=== PATIENT | female | born 1985 | race Hispanic/Latino ===

== ENCOUNTER 2020-05-19 10:38 | Outpatient (CLI) | payer OTHER, SELFPAY ==
--- NOTE | ~2020-05-19 | US_ITS ---
EXAMINATION: US abdomen complete EXAM DATE: 05/19/2020 11:15 INDICATION: Abdominal pain. TECHNIQUE: Multiple grayscale and Doppler images of the complete abdomen were obtained (by a technolo gist who performed the scan) and subsequently reviewed. Comparison is made to prior examination from 02/06/2019. FINDINGS: The abdominal aorta is normal in caliber. Visualized portion IVC is patent. The pancreatic head a nd body are normal in appearance. The pancreatic tail is not visualized. There is echogenic liver parenchyma, hepatic steatosis. There are no focal liver lesions identified. There is no evidence of intrahepatic biliary duct dilation. Portal venous flow was seen in the he patopedal, normal direction and has normal Doppler waveform. Common bile duct measures 6 mm, which is normal. The gallbladder fossa is unremarkable. Right kidney: There is normal contour and echogenicity. It measures 11.9 x 5.5 x 6.1 centimeters. There are no focal renal lesions identified. There is no hydronephrosis. Left kidney: There is normal contour and echogenicity. It measures 12.5 x 5.2 x 5.8 centimeters. T here are no focal renal lesions identified. There is no hydronephrosis. The spleen measures 12.7 centimeters and is morphologically normal. IMPRESSION: 1. Hepatic steatosis. Reviewed, dictated and finalized at location A. IMPRESSION: 1. Hepatic steatosis.
== END 2020-05-19 10:39 | disposition home or self-care (01) ==
PROVIDERS: PCP Internal Medicine; Visit Provider Nurse Practitioner
DX: R10.9 Unspecified abdominal pain (principal); K76.0 Fatty (change of) liver, not elsewhere classified
CPT/HCPCS: 76700

== ENCOUNTER 2020-05-25 13:54 | Outpatient (CLI) | payer OTHER, SELFPAY ==
--- NOTE | ~2020-05-25 | CT_ITS ---
EXAMINATION: CT abdomen pelvis wo con DATE: 05/25/2020 14:15 INDICATION: Unspecified abdominal pain TECHNIQUE: Computed tomography (CT) of the abdomen and pelvis was performed without intravenous contr ast. The dose-length product (DLP) was 1208.39 mGy-cm. Automated exposure control and iterative recon struction technique were employed. COMPARISON: None FINDINGS: The lung bases are clear. The heart size is normal. The gallbladder is surgically absent. T he liver is diffusely low in attenuation when compared with the spleen, consistent with hepatic steat osis. Tiny hypoattenuating lesions in the spleen likely represent cysts. Pancreas and adrenal glands are normal. The kidneys are unremarkable. No pathologically enlarged abdominal or pelvic lymph nodes are identified. There is no free intraperitoneal gas or evidence of bowel obstruction. The appendix i s normal. An L4 limbus vertebra is noted. There is a small fat-containing umbilical hernia. IMPRESSION: 1. No CT correlate for the patient's symptoms. 2. Diffuse hepatic steatosis. Reviewed, dictated and finalized at location B.
== END 2020-05-25 13:55 | disposition home or self-care (01) ==
LOC: ANHIMG 14:01
PROVIDERS: PCP Internal Medicine; Visit Provider Nurse Practitioner
DX: R10.9 Unspecified abdominal pain (principal); K76.0 Fatty (change of) liver, not elsewhere classified
CPT/HCPCS: 74176

== ENCOUNTER 2020-06-30 12:58 | Outpatient (CLI) | payer OTHER, SELFPAY ==
[2020-06-30 15:03] LABS: Vitamin D 25 Hydroxy 19.4 ng/mL
== END 2020-06-30 12:59 | disposition home or self-care (01) ==
PROVIDERS: PCP Internal Medicine; Visit Provider Clinical Nurse Specialist
DX: E55.9 Vitamin D deficiency, unspecified (principal); E11.9 Type 2 diabetes mellitus without complications
CPT/HCPCS: 82306

== ENCOUNTER 2020-07-06 17:03 | Outpatient (CLI) | payer OTHER, SELFPAY ==
[2020-07-06 17:27] LABS: Hemoglobin A1C 10.2 % (<5.7)
== END 2020-07-06 17:04 | disposition home or self-care (01) ==
PROVIDERS: PCP Internal Medicine; Visit Provider Clinical Nurse Specialist
DX: E11.9 Type 2 diabetes mellitus without complications (principal)
CPT/HCPCS: 36415; 83036

== ENCOUNTER 2020-09-02 11:26 | Emergency (ER) | payer OTHER, SELFPAY ==
--- NOTE | ~2020-09-02 | XR_ITS ---
EXAMINATION: XR chest 1V portable EXAM DATE: 09/02/2020 12:24 INDICATION: SOB x 1 week TECHNIQUE: Portable AP frontal chest x-ray was obtained. There is no prior study for comparison. FINDINGS: Some patchy ill-defined left basilar airspace disease suspicious for acute infectious proce ss. Cardiomediastinal silhouette is normal. There is no pneumothorax suspected. There are no pleural effusions. There are no osseous abnormalities identified. IMPRESSION: Suspect developing left basilar acute infectious process, clinical correlation. Reviewed, dictated and finalized at location A. 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
[2020-09-02 11:49] VITALS: BP 118/81; PULSE 114; RESP 32; TEMP 37.2; O2SAT 98
[2020-09-02 11:52] VITALS: PULSE 110
--- NOTE | 2020-09-02 11:52 | ECG_ITS ---
Measurements Intervals [place] Rate: 113 P: 136 ID: [id number] QRS: 187 QRSD: 93 T: 151 QT: 343 QTc: 472 Interpretive Statements SINUS TACYCARDIA WITH SHORT ID INTERVAL LIMB LEAD REVERSAL BASELINE ARTIFACT- I, II, III ABNORMAL ECG Electronically Signed On 09-02-2020 14:48:35 [employer] SALON MANAGER by Sachin Lee D.O.
[2020-09-02 12:06] LABS: Basophils Percent Auto 0.2 % (0.2-1.2); Eosinophils Percent Auto 0.2 % (0-4.4); Hematocrit 45.4 % (37.0-47.0); Hemoglobin 15.9 g/dL (12.0-15.0); Immature Granulocyte Absolute 0.02 K/mm3 (0.00-0.031); Immature Granulocyte Percent A 0.4 % (0-0.5); Lymphocytes Absolute Auto 1.72 K/mm3 (0.9-3.2); Lymphocytes Percent Auto 36.7 % (18.3-44.2); Mean Corpuscular Hemoglobin 30.1 pg (26-34); Mean Platelet Volume 10.4 fl (7.4-10.4); Monocytes Absolute Auto 0.4 K/mm3 (0.1-0.6); Monocytes Percent Auto 7.7 % (2.6-8.5); Neutrophils Absolute Auto 2.6 K/mm3 (1.3-6.7); Neutrophils Percent Auto 54.8 % (45.5-73.1); Platelet Count Result 163 k/mm3 (150-375); Red Blood Count 5.28 M/mm3 (4.2-5.4); Red Cell Distribution Width 12.7 % (11.5-14.5); White Blood Count 4.7 K/mm3 (4.5-10.0)
[2020-09-02 12:22] LABS: Anion Gap 13 mmol/L (8-16); Blood Urea Nitrogen 13 mg/dL (7-17); Calcium 8.6 mg/dL (8.4-10.2); Carbon Dioxide 20 mmol/L (22-30); Chloride 103 mmol/L (98-107); Estimated CRCL calculation 152 ml/min; Estimated Glomerular Filt Rate > 60; Glucose 299 mg/dL (65-105); Potassium 4.3 mmol/L (3.4-5.0); Sodium 136 mmol/L (137-145)
[2020-09-02 12:35] VITALS: BP 153/99; PULSE 115; RESP 40; O2SAT 98
[2020-09-02] MEDS: FAMOTIDINE 20 MG/2 ML VIAL IV PUSH (12:53)
[2020-09-02] MEDS: SODIUM CHLORIDE 0.9% IV 1,000 ML 999 ML IV CONT ×2 (12:54→14:30)
[2020-09-02] MEDS: LORazepam INJ (*CRX) 2 MG/ML VIAL 1 MG IV PUSH (12:54)
[2020-09-02] MEDS: ONDANSETRON INJ 4 MG/2 ML VIAL IV PUSH (12:54)
--- NOTE | 2020-09-02 14:13 | ED.GENADULT ---
HPI - General Adult General Chief complaint: Shortness of Breath/Dyspnea Stated complaint: diff breathing Time Seen by Provider: 09/02/20 12:06 Source: patient Mode of arrival: ambulatory Limitations: no limitations History of Present Illness HPI narrative: Patient is a 35-year-old female who presents with 5 days duration of congestion rhinorrhea cough dyspnea fever decreased appetite and fatigue. Denies vomiting but notes nausea denies diarrhea presents in no distress has not taken anything for her symptoms today patient lives with family at home patient notes she is feeling more anxious due to the illness. Patient on arrival appears uncomfortable and ill-appearing in no distress Related Data Allergies Allergy/AdvReac Type Severity Reaction Status Date / Time No Known Allergies Allergy Verified 11/05/19 16:10 Review of Systems Review of Systems: All systems reviewed & are unremarkable except as noted in HPI and below PMFSH Past Medical History Medical History Anxiety Asthma Depression DM (diabetes mellitus) HTN (hypertension) Miscarriage Ovarian cyst PCOS (polycystic ovarian syndrome) Vitamin D deficiency Family History Family History (System 11/05/19 @ 16:10 by Roxie Belcher) Father Hypertension Mother Diabetes mellitus Social History Social History Smoking status: Former smoker Smoking end date: 10/22/11 Alcohol intake: current Gender identity (if verbalized by the patient): Female Exam Narrative: Exam Narrative: GENERAL: Ill-appearing, obese, and in no acute distress. HEAD: Normocephalic, atraumatic. EYES: PERRLA and EOMI. ENT: Nares clear, no rhinorrhea or epistaxis. Mucous membranes moist. CHEST: Clear to auscultation. No respiratory distress. Slight crackles in the lung base HEART: Tachycardic rate and regular rhythm. No murmur heard. Normal peripheral pulses. ABDOMEN: Soft, nontender, nondistended EXTREMITIES: Normal range of motion. No edema. SKIN: Warm, dry, no rash. NEURO: No focal deficits. Alert and oriented x3. Cranial nerves II through XII grossly intact PSYCH: Normal mood and affect. Course Course Emergency Course: Patient in the room at this time resting comfortably feeling much better with interventions will be discharged home with primary care follow-up to receive her Covid results afebrile nontoxic-appearing no distress at this time Vital Signs Vital signs: Vital Signs Temperature 99.0 F 09/02/20 11:49 Pulse Rate 114 H 09/02/20 11:49 Respiratory Rate 32 H 09/02/20 11:49 Blood Pressure 118/81 09/02/20 11:49 Pulse Oximetry 98 09/02/20 11:49 Temperature 99.0 F 09/02/20 11:49 Pulse Rate 116 H 09/02/20 14:30 Respiratory Rate 28 H 09/02/20 14:30 Blood Pressure 135/84 09/02/20 14:30 Pulse Oximetry 98 09/02/20 14:30 Medical Decision Making MDM Narrative Medical decision making narrative: Patient with likely Covid has been tested will be discharged home with primary care follow-up feeling much better at this time afebrile nontoxic-appearing no distress felt appropriate for outpatient reevaluation given strict reasons to return has not hypoxic or tachycardic at this time resting comfortably in the room feeling much better with interventions Vital Signs Vital Signs: Vital Signs Temperature 99.0 F 09/02/20 11:49 Pulse Rate 114 H 09/02/20 11:49 Respiratory Rate 32 H 09/02/20 11:49 Blood Pressure 118/81 09/02/20 11:49 Pulse Oximetry 98 09/02/20 11:49 Temperature 99.0 F 09/02/20 11:49 Pulse Rate 116 H 09/02/20 14:30 Respiratory Rate 28 H 09/02/20 14:30 Blood Pressure 135/84 09/02/20 14:30 Pulse Oximetry 98 09/02/20 14:30 Lab Data Result diagrams: 09/02/20 12:00 09/02/20 11:59 Labs: Lab Results 09/02/20 09/02/20 Range/Units 11:59 12:00 WBC 4.7 (4.
[2020-09-02 14:30] VITALS: BP 135/84; PULSE 116; RESP 28; O2SAT 98
[2020-09-02 15:51] VITALS: BP 135/85; PULSE 99; RESP 20; O2SAT 98
[2020-09-03 14:52] LABS: SARS-CoV-2 RNA PCR Positive
== END 2020-09-02 16:01 | disposition home or self-care (01) ==
PROVIDERS: Emergency Medicine Emergency Medical Services; Emergency Provider Emergency Medicine; PCP Internal Medicine
DX: U07.1 COVID-19 (principal); F41.9 Anxiety disorder, unspecified; J45.909 Unspecified asthma, uncomplicated; F32.9 Major depressive disorder, single episode, unspecified; E11.9 Type 2 diabetes mellitus without complications; I10 Essential (primary) hypertension; E28.2 Polycystic ovarian syndrome; E55.9 Vitamin D deficiency, unspecified; Z79.4 Long term (current) use of insulin; Z87.891 Personal history of nicotine dependence; R00.0 Tachycardia, unspecified
CPT/HCPCS: 36415; 71045; 80048; 85025; 87635; 93005; 96361; 96365; 96375; 99284; C9803; J0131; J2060; J2405; J7030; U0003

== ENCOUNTER 2022-08-02 06:36 | Outpatient (RCR) | payer OTHER, SELFPAY | END 2022-10-17 08:37 | disposition home or self-care (01) | LOC: ANHDMC 06:36 | PROVIDERS: PCP Nurse Practitioner Family; Visit Provider Nurse Practitioner Family | DX: E11.65 Type 2 diabetes mellitus with hyperglycemia (principal) | CPT/HCPCS: 99199 ==

== ENCOUNTER 2022-08-12 13:04 | Outpatient (CLI) | payer OTHER, SELFPAY ==
[2022-08-12 13:44] LABS: Alanine Aminotransferase 19 U/L (6-35); Albumin Level 3.9 g/dL (3.5-5.1); Alkaline Phosphatase 75 U/L (38-126); Anion Gap 11 mmol/L (8-16); Aspartate Amino Transferase 15 U/L (14-36); Bilirubin,Total 0.2 mg/dL (0.2-1.3); Blood Urea Nitrogen 8 mg/dL (7-17); Calcium 8.4 mg/dL (8.4-10.2); Carbon Dioxide 21 mmol/L (22-30); Chloride 104 mmol/L (98-107); Estimated Glomerular Filt Rate > 60; Glucose 168 mg/dL (65-110); Potassium 3.7 mmol/L (3.4-5.0); Sodium 136 mmol/L (137-145)
[2022-08-12 13:46] LABS: Hemoglobin A1C 7.5 % (<5.7)
[2022-08-12 13:52] LABS: Basophils Percent Auto 0.3 % (0.2-1.2); Eosinophils Absolute Auto 0.1 K/mm3 (0-0.3); Eosinophils Percent Auto 1.8 % (0-4.4); Hematocrit 38.5 % (37.0-47.0); Hemoglobin 12.8 g/dL (12.0-15.0); Immature Granulocyte Absolute 0.03 K/mm3 (0.00-0.031); Immature Granulocyte Percent A 0.4 % (0-0.5); Lymphocytes Absolute Auto 2.07 K/mm3 (0.9-3.2); Mean Corpuscular HGB Conc 33.2 g/dl (32-36); Mean Corpuscular Hemoglobin 29.6 pg (26-34); Mean Corpuscular Volume 89.1 fl (80-100); Monocytes Absolute Auto 0.4 K/mm3 (0.1-0.6); Monocytes Percent Auto 5.8 % (2.6-8.5); Neutrophils Percent Auto 60.7 % (45.5-73.1); Platelet Count Result 253 k/mm3 (150-375); Red Blood Count 4.32 M/mm3 (4.2-5.4); Red Cell Distribution Width 12.6 % (11.5-14.5); White Blood Count 6.7 K/mm3 (4.5-10.0)
[2022-08-12 14:00] LABS: Vitamin D 25 Hydroxy 37.5 ng/mL
[2022-08-12 14:19] LABS: Hepatitis B Surface Antigen Negative (Negative); Rubella IgG Antibody 15.9 IU/ML
[2022-08-12 14:23] LABS: HIV 1/2 Ab P24 Ag Result Negative (Negative)
[2022-08-12 15:01] LABS: Folic Acid > 20.0 ng/mL (2.76->20)
[2022-08-14 07:29] LABS: Rapid Plasma Reagin Non-Reactive (NonReactive)
[2022-08-15 09:21] LABS: CMV IgG Antibody >10.00 U/mL (<0.60)
== END 2022-08-12 13:05 | disposition home or self-care (01) ==
LOC: ANHLAB 13:06
PROVIDERS: PCP Nurse Practitioner Family; Visit Provider Obstetrics & Gynecology
DX: N94.89 Other specified conditions associated with female genital organs and menstrual cycle (principal); Z98.84 Bariatric surgery status
CPT/HCPCS: 36415; 80053; 82306; 82607; 82746; 83036; 84702; 85025; 86592; 86644; 86703; 86747; 86762; 86787; 86850; 86900; 86901; 87086; 87088; 87340; G0432

== ENCOUNTER 2022-09-19 18:15 | Emergency (ER) | payer OTHER, SELFPAY ==
[2022-09-19 18:33] VITALS: BP 116/60; PULSE 88; RESP 16; TEMP 36.7; O2SAT 99
--- NOTE | 2022-09-19 19:22 | ED.FEMALEGU ---
HPI - Female Genitourinary General Chief complaint: Urogenital-Female Stated complaint: uti Time Seen by Provider: 09/19/22 19:22 Source: patient and RN notes reviewed Mode of arrival: ambulatory Limitations: no limitations History of Present Illness HPI Narrative: 37-year-old female presenting for complaint of urinary frequency, urgency, and dysuria at the end of the stream. She states she has dribbling often. She denies abdominal pain, hematuria, nausea, vomiting, diarrhea, fevers or chills. She is currently 15 weeks . Related Data Home Medications Medication Instructions Recorded Confirmed magnesium oxide 400 mg (241.3 mg 400 mg PO DAILY 06/29/22 09/19/22 magnesium) tablet metformin 500 mg tablet,extended 1 tablet PO DAILY 06/29/22 09/19/22 release 24 hr Allergies Allergy/AdvReac Type Severity Reaction Status Date / Time No Known Allergies Allergy Verified 09/19/22 18:39 Review of Systems Review of Systems: CONSTITUTIONAL: Denies body aches, fever, chills, or sweats. CARDIOVASCULAR: Denies chest pain, palpitations, or edema. RESPIRATORY: Denies cough or dyspnea. GASTROINTESTINAL: Denies abdominal pain, nausea, vomiting, or diarrhea. GENITOURINARY: Reports dysuria, frequency, urgency, denies hematuria, flank pain SKIN: Denies rash, itching, or wounds. MUSCULOSKELETAL: Denies back pain or myalgia. [facility] Past Medical History Medical History Anxiety Asthma Depression DM (diabetes mellitus) FH: cholecystectomy Hyperlipidemia Miscarriage Obesity (BMI 30-39.9) Ovarian cyst PCOS (polycystic ovarian syndrome) Suppression of menses Vaginal irritation Vitamin D deficiency Surgical History Surgical History Gastric bypass status for obesity 09/05/2021 Previous section x2 Family History Family History Father Hypertension Mother Diabetes mellitus Social History Social History Smoking status: Former smoker Smoking end date: 10/22/11 Alcohol intake: never Substance use: never Substance use type: does not use Gender identity (if verbalized by the patient): Female Comments At time of signature, I have reviewed and agree with nursing past medical, surgical, social and family history unless otherwise noted. Please see nursing chart for further information. There is no relevant family history pertinent to the presenting complaint Exam Narrative: GENERAL: Well-appearing and in no acute distress. HEAD: Normocephalic EYES: EOMI. . ENT: Mucous membranes pink and moist. NECK: Normal AROM. Supple. CHEST: No respiratory distress. Clear to auscultation. HEART: Regular rate and rhythm. ABDOMEN: Soft, nontender, nondistended, normal active bowel sounds. No CVA tenderness MUSCULOSKELETAL: No bony tenderness. SKIN: Warm, dry, no rash. NEURO: No focal deficits. Alert and oriented x3. Gait steady. PSYCH: Normal affect. No signs of depression or anxiety. Course Course Emergency Course: Patient is aware of diagnosis, understands and agrees to treatment plan. Anticipatory guidance given. Patient agrees to follow-up as directed and is aware of reasons to seek care at the emergency department. Portions of this record may have been created with voice recognition software Level of Care: Express Care Visit Vital Signs Vital signs: Vital Signs Temperature 98.0 F 09/19/22 18:33 Pulse Rate 88 09/19/22 18:33 Respiratory Rate 16 09/19/22 18:33 Blood Pressure 116/60 09/19/22 18:33 Pulse Oximetry 99 09/19/22 18:33 Oxygen Delivery Room Air 09/19/22 18:33 Temperature 98.0 F 09/19/22 18:33 Pulse Rate 88 09/19/22 18:33 Respiratory Rate 16 09/19/22 18:33 Blood Pressure 116/60 09/19/22 18:33 Pulse Oximetry
== END 2022-09-19 19:35 | disposition home or self-care (01) ==
PROVIDERS: Emergency Provider Nurse Practitioner Family; PCP Nurse Practitioner Family
DX: O23.42 Unspecified infection of urinary tract in pregnancy, second trimester (principal); N39.0 Urinary tract infection, site not specified; O24.912 Unspecified diabetes mellitus in pregnancy, second trimester; Z79.84 Long term (current) use of oral hypoglycemic drugs; O99.282 Endocrine, nutritional and metabolic diseases complicating pregnancy, second trimester; E78.5 Hyperlipidemia, unspecified; E28.2 Polycystic ovarian syndrome; J45.909 Unspecified asthma, uncomplicated; O99.512 Diseases of the respiratory system complicating pregnancy, second trimester; Z3A.15 15 weeks gestation of pregnancy; Z87.891 Personal history of nicotine dependence
CPT/HCPCS: 81003; 87077; 87086; 87186; 99213; G0463

== ENCOUNTER 2022-11-22 12:17 | Outpatient (CLI) | payer OTHER, SELFPAY ==
--- NOTE | 2022-11-22 | ECHO_ITS ---
Patient Info Name: Concepcion Fierro Age: 37 years : 1985 Gender: Female Ht: 62 in Wt: 223 lbs BSA: 2.16 m2 HR: 93 bpm BP: 135 / 82 mmHg Heart Rhythm: Sinus Rhythm Technical Quality: Fair Exam Date: 11/22/2022 12:56 PM Exam Location: [facility] Patient Status: Outpatient Admit Date: 11/22/2022 Staff Ordering Physician: cathy nieves MD [place]er Sh[place]: Yanira Blankenship RDCS Attending Provider: cathy nieves MD Referring Physician: ezequiel LOVE; Exam Type: CA echo doppler color flow Study Info Indications - CHRONIC HTN, TYPE II DIABETIC Complete two-dimensional, color flow and Doppler transthoracic echocardiogram is performed. Summary 1. Complete two-dimensional, color flow and Doppler transthoracic echocardiogram is performed. 2. Left ventricular chamber dimension is normal. 3. Left ventricular systolic function is normal, estimated at 60-65%. 4. The left ventricular diastolic function is normal. 5. Right ventricular systolic function is normal. 6. There is mild tricuspid valve regurgitation. 7. Left pleural effusion seen. Left Ventricle Left ventricular chamber dimension is normal. Left ventricular systolic function is normal, estimated at 60-65%. There is no increased left ventricular wall thickness. The left ventricular diastolic function is normal. Right Ventricle Right ventricular chamber dimension is normal. Right ventricular systolic function is normal. Left Atria Left atrial chamber dimension is normal. Right Atria Right atrial chamber dimension is normal. Atrial Septum Intact interatrial septum visualized by color flow imaging. Aortic Valve The aortic valve is probable trileaflet. There is no aortic valve stenosis. There is no aortic valve regurgitation. Pulmonic Valve The pulmonic valve is not well visualized. Mitral Valve The mitral valve has normal leaflets. There is no mitral valve stenosis. There is no mitral valve regurgitation. Tricuspid Valve There is no significant tricuspid valve stenosis. There is mild tricuspid valve regurgitation. Pericardium/Pleural Left pleural effusion seen. There is no pericardial effusion. Inferior Vena Cava Normal inferior vena cava with >50% collapse upon inspiration consistent with normal right atrial pressure, 3 mmHg. Aorta The aortic root size at the sinus of Valsalva is normal. Left Ventricular Outflow Tract Name Value Normal LVOT Doppler LVOT Peak Gradient 5 mmHg LVOT Mean Gradient 3 mmHg LVOT VTI 21 cm LVOT VTI/AV VTI Ratio 0.7 Pulmonic Valve Name Value Normal RVOT Doppler RVOT Peak Gradient 4 mmHg PV Doppler PV Peak Gradient 9 mmHg Mitral Valve
--- NOTE | 2022-11-22 12:48 | ECG_ITS ---
Measurements Intervals [place] Rate: 88 P: 8 MD: 136 QRS: -11 QRSD: 93 T: 20 QT: 363 QTc: 441 Interpretive Statements SINUS RHYTHM COMPARED TO ECG 09/02/2020 11:54:55 SINUS RHYTHM NOW PRESENT Electronically Signed On 11-22-2022 15:08:10 TRANSPLANT NURSE by Jamila Marquez M.D.
== END 2022-11-22 12:18 | disposition home or self-care (01) ==
LOC: ANHCARD 12:24
PROVIDERS: PCP Nurse Practitioner Family
DX: O10.919 Unspecified pre-existing hypertension complicating pregnancy, unspecified trimester (principal); O24.119 Pre-existing type 2 diabetes mellitus, in pregnancy, unspecified trimester; J90 Pleural effusion, not elsewhere classified; I07.1 Rheumatic tricuspid insufficiency; O99.891 Other specified diseases and conditions complicating pregnancy
CPT/HCPCS: 93005; 93306

== ENCOUNTER 2023-01-01 02:06 | Emergency (ER) | payer OTHER, SELFPAY ==
[2023-01-01] VITALS (10 sets, daily range): BP systolic 133–163; BP diastolic 70–94; PULSE 105–132; RESP 18–30; TEMP 37.2–38.8; O2SAT 98–100
[2023-01-01 02:57] LABS: Basophils Percent Auto 0.2 % (0.2-1.2); Eosinophils Percent Auto 0.2 % (0-4.4); Hematocrit 31.5 % (37.0-47.0); Hemoglobin 10.7 g/dL (12.0-15.0); Immature Granulocyte Absolute 0.03 K/mm3 (0.00-0.031); Immature Granulocyte Percent A 0.4 % (0-0.5); Lymphocytes Absolute Auto 0.93 K/mm3 (0.9-3.2); Lymphocytes Percent Auto 11.1 % (18.3-44.2); Mean Corpuscular Volume 88.2 fl (80-100); Mean Platelet Volume 9.3 fl (7.4-10.4); Monocytes Absolute Auto 0.7 K/mm3 (0.1-0.6); Neutrophils Absolute Auto 6.7 K/mm3 (1.3-6.7); Neutrophils Percent Auto 80.1 % (45.5-73.1); Platelet Count Result 239 k/mm3 (150-375); Red Blood Count 3.57 M/mm3 (4.2-5.4); Red Cell Distribution Width 13.2 % (11.5-14.5); White Blood Count 8.4 K/mm3 (4.5-10.0)
[2023-01-01 02:59] LABS: Appearance Urine Clear (Clear); Bilirubin Urine Negative (Negative); Blood Urine Negative (Negative); Color Urine Yellow (Yellow); Glucose Urine UA Negative (Negative); Ketones Urine Negative (Negative); Leukocyte Esterase Ur Negative LEU/UL (Negative); Nitrate Urine Negative (Negative); Protein Urine Negative (Negative); Specific Grav Ur 1.013 (1.001-1.035); Urobilinogen Urine 0.2 mg/dL (<2.0)
[2023-01-01 03:08] LABS: Alanine Aminotransferase 18 U/L (6-35); Albumin Level 3.5 g/dL (3.5-5.1); Alkaline Phosphatase 89 U/L (38-126); Anion Gap 4 mmol/L (8-16); Aspartate Amino Transferase 15 U/L (14-36); Bilirubin,Total 0.4 mg/dL (0.2-1.3); Blood Urea Nitrogen 13 mg/dL (7-17); Calcium 8.8 mg/dL (8.4-10.2); Carbon Dioxide 19 mmol/L (22-30); Chloride 106 mmol/L (98-107); Estimated CRCL calculation 179 ml/min; Estimated Glomerular Filt Rate > 60; Glucose 90 mg/dL (65-110); Sodium 129 mmol/L (137-145)
--- NOTE | 2023-01-01 03:09 | ED.GENADULT ---
HPI - General Adult General Chief complaint: Unspecified Stated complaint: chills, back ache, 29weeks VINNY 03/16/23 Time Seen by Provider: 01/01/23 02:59 History of Present Illness HPI narrative: Patient 37-year-old female who presents the emergency department with chief complaint of fever body aches and flank pain. The patient reports that she is approximately 29 weeks and reports she has had issues with UTIs and reports that she started having discomfort in her flank and reports that she started running a fever today. The patient reports no nausea vomiting denies cough denies shortness of breath. Patient reports been about 8 hours since her last dose of Tylenol. Patient denies loss of fluids denies abdominal pain but does report that she has bilateral flank pain. Related Data Home Medications Medication Instructions Recorded Confirmed magnesium oxide 400 mg (241.3 mg 400 mg PO DAILY 06/29/22 09/19/22 magnesium) tablet insulin glargine 100 unit/mL 10 unit subcut QPM 12/18/22 subcutaneous solution (Lantus U-100 Insulin) Allergies Allergy/AdvReac Type Severity Reaction Status Date / Time No Known Allergies Allergy Verified 01/01/23 02:08 Review of Systems Review of Systems: A 10 system review of systems was completed on the patient and is negative except for what is stated in the HPI. Nursing and ancillary documentation was reviewed. [facility] Past Medical History Medical History Anxiety Asthma Depression DM (diabetes mellitus) FH: cholecystectomy Hyperlipidemia Miscarriage Obesity (BMI 30-39.9) Ovarian cyst PCOS (polycystic ovarian syndrome) Suppression of menses Vaginal irritation Vitamin D deficiency Surgical History Surgical History Gastric bypass status for obesity 09/05/2021 Previous section x2 Family History Family History Father Hypertension Mother Diabetes mellitus Social History Social History Smoking status: Former smoker Smoking end date: 10/22/11 Alcohol intake: never Substance use: never Substance use type: does not use Living arrangements: with family Occupation/Education: unemployed Gender identity (if verbalized by the patient): Female Exam Narrative: GENERAL: Well-appearing, well-nourished, and in no acute distress. HEAD: Normocephalic, atraumatic. EYES: PERRLA and EOMI. ENT: Nares clear, no rhinorrhea or epistaxis. Mucous membranes moist. NECK: Supple. CHEST: Clear to auscultation. No respiratory distress. HEART: Regular rate and rhythm. No murmur heard. Normal peripheral pulses. ABDOMEN: Soft, nontender, nondistended, normal active bowel sounds. EXTREMITIES: Normal range of motion. No edema. SKIN: Warm, dry, no rash. NEURO: No focal deficits. Alert and oriented x3. PSYCH: Normal mood and affect. Course Vital Signs Vital signs: Vital Signs Temperature 37.5 C 01/01/23 02:10 Pulse Rate 132 H 01/01/23 02:10 Respiratory Rate 18 01/01/23 02:10 Blood Pressure 163/85 H 01/01/23 02:10 Pulse Oximetry 100 01/01/23 02:10 Oxygen Delivery Room Air 01/01/23 02:10 Temperature 37.2 C 01/01/23 04:15 Pulse Rate 109 H 01/01/23 04:15 Respiratory Rate 20 01/01/23 04:15 Blood Pressure 137/70 01/01/23 04:15 Pulse Oximetry 99 01/01/23 04:15 Oxygen Delivery Room Air 01/01/23 02:10 Medical Decision Making MDM Narrative Medical decision making narrative: Differential diagnosis includes UTI, pyelonephritis, COVID, viral syndrome, sepsis, labor Patient was evaluated by labor and delivery with an NST that was within normal limits Patient received IV fluids and Tylenol which subsequently has made the patient's heart rate come down an
[2023-01-01 03:16] LABS: Add Urine Microscopic? NO
[2023-01-01] MEDS: SODIUM CHLORIDE 0.9% IV 1,000 ML 999 ML IV CONT (03:17)
--- NOTE | 2023-01-01 03:20 | PC.NURSE ---
OB staff here evaluating and monitoring pt .
[2023-01-01 03:34] LABS: Influenza A QL RT-PCR Negative (Negative); Influenza B QL RT-PCR Negative (Negative); SARS-CoV-2 RNA PCR Negative
[2023-01-01 03:49] LABS: Lactic Acid Reflex 0.7 mmol/L (0.7-2.0)
== END 2023-01-01 04:36 | disposition home or self-care (01) ==
PROVIDERS: Emergency Provider Emergency Medicine; PCP Student in an Organized Health Care Education/Training Program
DX: O98.513 Other viral diseases complicating pregnancy, third trimester (principal); B34.9 Viral infection, unspecified; Z20.822 Contact with and (suspected) exposure to COVID-19; O99.843 Bariatric surgery status complicating pregnancy, third trimester; O99.513 Diseases of the respiratory system complicating pregnancy, third trimester; J45.909 Unspecified asthma, uncomplicated; O24.113 Pre-existing type 2 diabetes mellitus, in pregnancy, third trimester; O99.283 Endocrine, nutritional and metabolic diseases complicating pregnancy, third trimester; E28.2 Polycystic ovarian syndrome; E78.5 Hyperlipidemia, unspecified; E55.9 Vitamin D deficiency, unspecified; Z3A.29 29 weeks gestation of pregnancy; O99.213 Obesity complicating pregnancy, third trimester; E66.9 Obesity, unspecified; Z87.891 Personal history of nicotine dependence; Z79.4 Long term (current) use of insulin
CPT/HCPCS: 36415; 80053; 81003; 83605; 85025; 87040; 87077; 87186; 87636; 96361; 96365; 99284; J0131; J7030

== ENCOUNTER 2023-01-18 11:18 | Outpatient (CLI) | payer OTHER, SELFPAY ==
--- NOTE | ~2023-01-18 | XR_ITS ---
EXAMINATION: XR chest 1V INDICATION: Pleural effusion TECHNIQUE: PA view of the chest is obtained. COMPARISON: 09/02/2020 FINDINGS: The lungs are free of acute opacities. No pleural effusion or pneumothorax. The cardiomedia stinal silhouette is normal. The visualized osseous structures are unremarkable. IMPRESSION: 1. No acute cardiopulmonary abnormality. Reviewed, dictated and finalized at location F.
== END 2023-01-18 11:19 | disposition home or self-care (01) ==
PROVIDERS: PCP Nurse Practitioner Family
DX: O09.629 Supervision of young multigravida, unspecified trimester (principal); E66.01 Morbid (severe) obesity due to excess calories; O10.919 Unspecified pre-existing hypertension complicating pregnancy, unspecified trimester; Z3A.00 Weeks of gestation of pregnancy not specified; J90 Pleural effusion, not elsewhere classified
CPT/HCPCS: 71045

== ENCOUNTER 2023-03-02 12:53 | Inpatient (IN) | payer OTHER, SELFPAY ==
[2023-03-02] VITALS (44 sets, daily range): BP systolic 121–174; BP diastolic 63–138; PULSE 65–99; RESP 15–20; TEMP 36.1–36.9; O2SAT 98–100; BMI 44.3
[2023-03-02 13:50] LABS: Basophils Percent Auto 0.2 % (0.2-1.2); Eosinophils Absolute Auto 0.1 K/mm3 (0-0.3); Eosinophils Percent Auto 0.5 % (0-4.4); Hematocrit 32.5 % (37.0-47.0); Hemoglobin 10.9 g/dL (12.0-15.0); Immature Granulocyte Absolute 0.03 K/mm3 (0.00-0.031); Immature Granulocyte Percent A 0.3 % (0-0.5); Lymphocytes Absolute Auto 1.66 K/mm3 (0.9-3.2); Lymphocytes Percent Auto 15.5 % (18.3-44.2); Mean Corpuscular HGB Conc 33.5 g/dl (32-36); Mean Corpuscular Hemoglobin 28.8 pg (26-34); Mean Corpuscular Volume 85.8 fl (80-100); Mean Platelet Volume 9.7 fl (7.4-10.4); Monocytes Absolute Auto 0.6 K/mm3 (0.1-0.6); Monocytes Percent Auto 5.5 % (2.6-8.5); Neutrophils Absolute Auto 8.4 K/mm3 (1.3-6.7); Platelet Count Result 305 k/mm3 (150-375); Red Blood Count 3.79 M/mm3 (4.2-5.4); Red Cell Distribution Width 14.2 % (11.5-14.5); White Blood Count 10.7 K/mm3 (4.5-10.0)
--- NOTE | 2023-03-02 13:51 | PM.IMHP ---
H&P: HPI History of Present Illness Date/Time: 03/02/23 13:51 Chief Complaint: intrauterine at term previous x2 type 2 diabetes history of preeclampsia chronic hypertension obesity scoliosis history of gastric bypass Narrative: 37-year-old 022 who presents at 38 weeks 0 days for repeat . Patient was seen by MFM today for NST. Patient noted to have increased swelling and elevated blood pressures. Patient is pre gestational type 2. Patient also reports a history of preeclampsia. MFM recommended delivery. Will proceed with repeat . Review of Systems Cardiovascular: Cardiovascular: Denies chest pain, Denies leg edema, Denies palpitations, Denies dyspnea and Denies dyspnea on exertion Respiratory: Respiratory: Denies cough, Denies dyspnea and Denies dyspnea on exertion Gastrointestinal: Gastrointestinal: Denies abdominal pain, Denies constipation, Denies diarrhea, Denies nausea and Denies vomiting Genitourinary: Genitourinary: Denies hematuria, Denies urinary frequency, Denies dysuria, Denies pelvic pain, Denies urinary incontinence and Denies vaginal discharge Neurologic: Reports system reviewed and no additional complaints, except as documented Psychiatric: Psychiatric: Reports no additional psychiatric complaints Endocrine: Endocrine: Denies palpitations PMFSH Past Medical History Medical History Anxiety Asthma Depression DM (diabetes mellitus) FH: cholecystectomy Hyperlipidemia Miscarriage Obesity (BMI 30-39.9) Ovarian cyst PCOS (polycystic ovarian syndrome) Suppression of menses Vaginal irritation Vitamin D deficiency Surgical History Surgical History Gastric bypass status for obesity 09/05/2021 Previous section x2 Family History Family History Father Hypertension Mother Diabetes mellitus Social History Social History Smoking status: Former smoker Smoking end date: 10/22/11 Alcohol intake: never Substance use: never Substance use type: does not use Living arrangements: with family Occupation/Education: unemployed Gender identity (if verbalized by the patient): Female Spiritual care concerns: No Meds Home Medications and Allergies Home Medications Medication Instructions Recorded Confirmed Type vitamin#30 30 mg iron-10 1 cap PO DAILY #90 caps 07/20/22 03/02/23 Rx mg iron-folic acid 1 mg-omg3 capsule sertraline 100 mg tablet 100 mg PO DAILY #90 tabs 11/16/22 Rx pantoprazole 40 mg tablet,delayed 40 mg PO BID 02/27/23 03/02/23 History release polysaccharide iron complex 150 mg 150 mg PO DAILY 02/27/23 03/02/23 History iron capsule hydroxyzine HCl 25 mg tablet 25 mg PO HS 03/02/23 03/02/23 History insulin glargine 100 unit/mL 18 unit subcut QAM 03/02/23 03/02/23 History subcutaneous cartridge insulin lispro 100 unit/mL 28 unit subcut QNOON 03/02/23 03/02/23 History subcutaneous pen insulin lispro 100 unit/mL 48 unit subcut QPM 03/02/23 03/02/23 History subcutaneous pen insulin lispro 100 unit/mL 20 unit subcut QAM 03/02/23 03/02/23 History subcutaneous pen (Humalog KwikPen (U-100) Insulin) [id number] 45 mg-folic 1 cap PO DAILY 03/02/23 03/02/23 History acid 800 mcg-vit K 120 mcg capsule (Bariatric Multivitamins) vit no.95-ferrous 1 tablet PO DAILY 03/02/23 03/02/23 History fumarate 28 mg-folic acid 800 mcg tablet () valacyclovir 1 gram tablet 1,000 mg PO DAILY 03/02/23 03/02/23 History Allergies Allergy/AdvReac Type Severity Reaction Status Date / Time No Known Allergies Allergy Verified 03/02/23 13:16 Exam Const: General: no acute distress Eyes: EOM: EOMs intact bilaterally Neck: Neck:
[2023-03-02] MEDS: LACTATED RINGERS 1,000 ML 125 ML IV CONT (13:55)
[2023-03-02 14:26] LABS: Glucose Point of Care 65 mg/dl (65-105)
[2023-03-02] MEDS: DEXTROSE 50% 25 GM/50 ML SYRINGE IV PUSH ×2 (14:43→17:24)
--- NOTE | 2023-03-02 14:45 | WPDANESEPPF ---
Anes - Initial Pre Proc Eval Date/Time: 03/02/23 14:45 Surgeon: Zani Dhaliwal MD Pre Op Diagnosis: C/S Patient Data Age: 37 Gender: F Height: 1.57 m Weight: 110 kg Last Vital Signs Pulse 93 03/02/23 14:32 BP 150/76 H 03/02/23 14:32 Allergies Allergy/AdvReac Type Severity Reaction Status Date / Time No Known Allergies Allergy Verified 03/02/23 13:16 Home Medications Medication Instructions Recorded Confirmed Type vitamin#30 30 mg iron-10 1 cap PO DAILY #90 caps 07/20/22 03/02/23 Rx mg iron-folic acid 1 mg-omg3 capsule sertraline 100 mg tablet 100 mg PO DAILY #90 tabs 11/16/22 Rx pantoprazole 40 mg tablet,delayed 40 mg PO BID 02/27/23 03/02/23 History release polysaccharide iron complex 150 mg 150 mg PO DAILY 02/27/23 03/02/23 History iron capsule hydroxyzine HCl 25 mg tablet 25 mg PO HS 03/02/23 03/02/23 History insulin glargine 100 unit/mL 18 unit subcut QAM 03/02/23 03/02/23 History subcutaneous cartridge insulin lispro 100 unit/mL 28 unit subcut QNOON 03/02/23 03/02/23 History subcutaneous pen insulin lispro 100 unit/mL 48 unit subcut QPM 03/02/23 03/02/23 History subcutaneous pen insulin lispro 100 unit/mL 20 unit subcut QAM 03/02/23 03/02/23 History subcutaneous pen (Humalog KwikPen (U-100) Insulin) [id number]-aamd 45 mg-folic 1 cap PO DAILY 03/02/23 03/02/23 History acid 800 mcg-vit K 120 mcg capsule (Bariatric Multivitamins) vit no.95-ferrous 1 tablet PO DAILY 03/02/23 03/02/23 History fumarate 28 mg-folic acid 800 mcg tablet () valacyclovir 1 gram tablet 1,000 mg PO DAILY 03/02/23 03/02/23 History Laboratory Tests 03/02/23 03/02/23 03/02/23 13:41 13:42 14:18 WBC 10.7 H K/mm3 (4.5-10.0) RBC 3.79 L M/mm3 (4.2-5.4) Hgb 10.9 L g/dL (12.0-15.0) Hct 32.5 L % (37.0-47.0) MCV 85.8 fl (80-100) MCH 28.8 pg (26-34) MCHC 33.5 g/dl (32-36) RDW 14.2 % (11.5-14.5) Plt Count 305 k/mm3 (150-375) MPV 9.7 fl (7.4-10.4) Immature Gran % (Auto) 0.3 % (0-0.5) Neut % (Auto) 78.0 H % (45.5-73.1) Lymph % (Auto) 15.5 L % (18.3-44.2) Kay % (Auto) 5.5 % (2.6-8.5) Eos % (Auto) 0.5 % (0-4.4) Baso % (Auto) 0.2 % (0.2-1.2) Lymph # (Auto) 1.66 K/mm3 (0.9-3.2) Kay # (Auto) 0.6 K/mm3 (0.1-0.6) Eos # (Auto) 0.1 K/mm3 (0-0.3) Baso # (Auto) 0.0 K/mm3 (0.0-0.1) Abs Immat Gran (auto) 0.03 K/mm3 (0.00-0.031) Absolute Neuts (auto) 8.4 H K/mm3 (1.3-6.7) Absolute Nucleated RBC 0.0 K/mm3 (0.0-0.012) Nucleated RBC % 0.0 % (0.0-0.2) POC Capillary Glucose 65 mg/dl (65-105) RPR Pending HIV 1&2 Ab/P24 Ag 4thGn Pending Patient hx anesthesia problems: none Family hx anesthesia problems: none Results Review: All pre-operative results and documents have been reviewed as part of the pre-operative evaluation. [facility] Past Medical History Medical History Anxiety Asthma Depression DM (diabetes mellitus) FH: cholecystectomy Hyperlipidemia Miscarriage Obesity (BMI 30-39.9) Ovarian cyst PCOS (polycystic ovarian syndrome) Suppression of menses Vaginal irritation Vitamin D deficiency Surgical History Surgical History Gastric bypass status for obesity 09/05/2021 Previous section x2 Family History Family History Father Hypertension Mother Diabetes mellitus Social History Social History Smoking status: Former smoker Smoking end date: 10/22/11 Alcohol intake: never Substance use: ne
[2023-03-02 14:46] LABS: HIV 1/2 Ab P24 Ag Result Negative (Negative)
[2023-03-02] MEDS: ceFAZolin 2 GM/D5W 50 ML 2 GM/50 ML BAG IVPB (14:49)
[2023-03-02] MEDS: KETOROLAC 30 MG/ML VIAL (*BKC) IV PUSH (15:21)
--- NOTE | 2023-03-02 16:02 | W.PM.PROC2 ---
Procedure Note - Detailed Date of Procedure 03/02/23 Pre-op Diagnosis repeat section bilateral tubal ligation Post-op Diagnosis Same Procedure Performed low transverse section Surgeon Zain Dhaliwal MD Anesthesia Spinal and Epidural Indications prior x2 CHTN T2DM obesity intrauterine at term Description of Procedure The patient was taken to the operating room. A combined spinal epidural anesthesic was administered and found to be adequate at a t-10 level. The patient was placed in a supine position with a slight left lateral tilt. A baez catheter was placed with return of clear urine. A Bovie grounding pad was placed. Surgical prep was performed and surgical drapes were placed. A surgical time out was performed. A Pfannenstiel skin incision was then made with the scalpel and carried through to the underlying layer of fascia. The fascia was then incised in the midline and the incision was extended laterally with the He scissors. The superior aspect of the fascia was then grasped with the Moshe clamps, elevated, and the underlying rectus muscles dissected off bluntly and sharply. Attention was then turned to the inferior aspect of this incision which, in a similar fashion, was grasped, tented up with the Moshe clamps, and the rectus muscles dissected off both bluntly and sharply. The rectus muscles were then in the midline. The peritoneum was identified and entered bluntly. The peritoneum was adherent to the anterior abdominal wall. Adhesions were taken down sharply and bluntly with BOVIE cautery. The peritoneal incision was then extended superiorly and inferiorly with good visualization of the bladder. An Giuseppe retractor was placed intraperitoneally for better visualization. The uterus was inspected for rotation. A low-transverse uterine incision was made sharply with the scalpel and entry was made into the uterine cavity. An amniotomy was made and copious amounts of clear fluid were noted on return. The uterine incision was extended laterally bluntly. The head was delivered to the hysterotoomy. Due to body habitus, fundal pressure was inadequate in delivering the fetus. Clifton forceps were then called for. The head was noted to be LEILA and facing the maternal right. Forceps were placed under direct visualization. The fetus was delivered atraumatically with gentle traction along with fundal pressure. The nose and mouth were suctioned with a bulb syringe. The umbilical cord was clamped twice and cut. The was handed off to the waiting staff. At the time of the delivery, the had good color, tone and grimace. The cried with minimal stimulation. A second segment of umbilical cord was clamped and cut for cord blood gasses. Cord blood was collected for determination of the blood type and for direct Queen. The placenta was delivered spontaneously without difficulty. The placenta appeared grossly normal and complete. The uterus was exteriorized and cleared of all clots and debris. The uterine incision was repaired using 0-monocryl suture in a running fashion. A second layer of 0 Monocryl suture was used in an imbricating fashion to obtain excellent hemostasis and uterine strength. There was a segment of the hysterotomy that was still bleeding. Hemostasis was obtained with 2 figure of eight suture of 0-monocryl. The uterine closure was inspected for hemostasis. The posterior aspect of the uterus and the broad ligaments were inspected and the posterior cul-de-sac cleared of fluid and blood clots. Attention was then turned toward the tubal ligation. Both fallopian tubes were identified and followed out to the fimbriae. The right fallopian tube was then grasped with a [place] and elevated. The fallopian tube was transected and ligated along the inferior medial salpinx using the LigaSure device. The fallopian tube was completely transected from the uterus. Similar procedure wa
[2023-03-02] MEDS: OXYTOCIN 30 UNITS/NS 500 ML 30 UNITS/500 ML BAG 125 UNITS IV CONT (16:23)
[2023-03-02 16:39] LABS: Alanine Aminotransferase 17 U/L (6-35); Albumin Level 3.4 g/dL (3.5-5.1); Alkaline Phosphatase 130 U/L (38-126); Anion Gap 7 mmol/L (8-16); Aspartate Amino Transferase 16 U/L (14-36); Bilirubin,Total 0.3 mg/dL (0.2-1.3); Blood Urea Nitrogen 12 mg/dL (7-17); Calcium 8.6 mg/dL (8.4-10.2); Carbon Dioxide 17 mmol/L (22-30); Chloride 111 mmol/L (98-107); Estimated CRCL calculation 153 ml/min; Estimated Glomerular Filt Rate > 60; Glucose 80 mg/dL (65-110); Potassium 4.3 mmol/L (3.4-5.0); Sodium 135 mmol/L (137-145); Uric Acid 3.9 mg/dL (2.5-7.5)
[2023-03-02 17:46] LABS: Glucose Point of Care 59 mg/dl (65-105)
[2023-03-02 17:46] LABS: Glucose Point of Care 124 mg/dl (65-105)
[2023-03-02] MEDS: fentaNYL CITRATE INJ (*CRX) 100 MCG/2 ML VIAL 25 MCG IV PUSH (18:20)
--- NOTE | 2023-03-02 18:24 | OBPPTRN ---
Patient transferred to post room #292 via stretcher. Support person present. Oriented to unit, room, information board, rooming in, admission packet and security measures. Patient verbalizes understanding.
[2023-03-02] MEDS: DEXTROSE 5%/0.45% SOD CHL 1,000 ML 125 ML IV CONT (18:30)
[2023-03-02 18:42] LABS: Glucose Point of Care 75 mg/dl (65-105)
--- NOTE | 2023-03-02 19:14 | PC.NURSE ---
1714--Dr Dhaliwal notified of pt's blood sugar 59mg/dl and pt. symptomatic with diaphoresis and nausea noted. Orders for one amp of D50% to be given IV. Also made him aware of pt's SBP's 160's and 170's, no new orders received regarding BP at this time.
[2023-03-02 20:56] LABS: Glucose Point of Care 142 mg/dl (65-105)
[2023-03-02] MEDS: HYDROcodone/acetaminophen (*CRX) 5-325 MG TABLET 1 TAB PO (23:10)
[2023-03-02] MEDS: IBUPROFEN 600 MG TABLET PO (23:10)
[2023-03-03] MEDS: HYDROcodone/acetaminophen (*CRX) 5-325 MG TABLET 1 TAB PO ×2 (04:17→08:36)
[2023-03-03] MEDS: SIMETHICONE 80 MG TAB.CHEW PO ×5 (04:17→21:25)
[2023-03-03 05:10] LABS: Basophils Percent Auto 0.3 % (0.2-1.2); Eosinophils Absolute Auto 0.1 K/mm3 (0-0.3); Eosinophils Percent Auto 0.6 % (0-4.4); Hematocrit 26.7 % (37.0-47.0); Hemoglobin 8.6 g/dL (12.0-15.0); Immature Granulocyte Absolute 0.05 K/mm3 (0.00-0.031); Immature Granulocyte Percent A 0.4 % (0-0.5); Lymphocytes Absolute Auto 2.58 K/mm3 (0.9-3.2); Lymphocytes Percent Auto 21.9 % (18.3-44.2); Mean Corpuscular HGB Conc 32.2 g/dl (32-36); Mean Corpuscular Hemoglobin 28.1 pg (26-34); Mean Corpuscular Volume 87.3 fl (80-100); Mean Platelet Volume 10.3 fl (7.4-10.4); Monocytes Absolute Auto 0.9 K/mm3 (0.1-0.6); Monocytes Percent Auto 7.3 % (2.6-8.5); Neutrophils Absolute Auto 8.2 K/mm3 (1.3-6.7); Neutrophils Percent Auto 69.5 % (45.5-73.1); Platelet Count Result 259 k/mm3 (150-375); Red Blood Count 3.06 M/mm3 (4.2-5.4); White Blood Count 11.8 K/mm3 (4.5-10.0)
[2023-03-03 08:00] VITALS: BP 138/80; PULSE 94; RESP 18; TEMP 36.4; O2SAT 100
--- NOTE | 2023-03-03 08:00 | PC.NURSE ---
PT introductions made and plan of care discussed per post op c section, pain management, bottle feeding, dialy care activities and diabetic management. PT sole recipient of such instructions and no barriers to learning identified at this time. PT received such instructions per one to one discussion, mom baby care guide and demonstrations this shift. PT verbalized understanding of such care.
--- NOTE | 2023-03-03 08:10 | PC.NURSE ---
blood sugar checked AC as ordered. Results 61. PT states not symptomatic. Dr Dhaliwal consulted and new orders received. Do correct amount of metformin but decrease insulin Novolog and Lantus in half.
[2023-03-03 08:12] LABS: Glucose Point of Care 61 mg/dl (65-105)
--- NOTE | 2023-03-03 08:13 | PM.OBPNVD ---
OB - PN: Subj Subjective Date/time seen: 03/03/23 08:13 Patient comments: no complaints, pain well controlled, tolerating diet and flatus present Narrative: Overall doing well this morning. Patient has had several episodes of hypoglycemia since her . Patient remains asymptomatic. OB - PN: Obj Data Labs 03/03/23 04:22 03/02/23 13:24 Labs: Laboratory Results - last 24 hr 03/02/23 03/02/23 03/02/23 13:24 13:41 13:42 WBC 10.7 H RBC 3.79 L Hgb 10.9 L Hct 32.5 L MCV 85.8 MCH 28.8 MCHC 33.5 RDW 14.2 Plt Count 305 MPV 9.7 Immature Gran % (Auto) 0.3 Neut % (Auto) 78.0 H Lymph % (Auto) 15.5 L Harding % (Auto) 5.5 Eos % (Auto) 0.5 Baso % (Auto) 0.2 Lymph # (Auto) 1.66 Harding # (Auto) 0.6 Eos # (Auto) 0.1 Baso # (Auto) 0.0 Abs Immat Gran (auto) 0.03 Absolute Neuts (auto) 8.4 H Absolute Nucleated RBC 0.0 Nucleated RBC % 0.0 Sodium 135 L Potassium 4.3 Chloride 111 H Carbon Dioxide 17 L Anion Gap 7 L BUN 12 Creatinine 0.50 L Estim Creat Clear Calc 153 Estimated GFR > 60 Glucose 80 POC Capillary Glucose Uric Acid 3.9 Calcium 8.6 Total Bilirubin 0.3 AST 16 ALT 17 Alkaline Phosphatase 130 H Total Protein 7.0 Albumin 3.4 L HIV 1&2 Ab/P24 Ag 4thGn Negative Blood Type A Positive Antibody Screen Negative 03/02/23 03/02/23 03/02/23 14:18 17:10 17:42 WBC RBC Hgb Hct MCV MCH MCHC RDW Plt Count MPV Immature Gran % (Auto) Neut % (Auto) Lymph % (Auto) Hard[place] % (Auto) Eos % (Auto) Baso % (Auto) Lymph # (Auto) Hard[place] # (Auto) Eos # (Auto) Baso # (Auto) Abs Immat Gran (auto) Absolute Neuts (auto) Absolute Nucleated RBC Nucleated RBC % Sodium Potassium Chloride Carbon Dioxide Anion Gap BUN Creatinine Estim Creat Clear Calc Estimated GFR Glucose POC Capillary Glucose 65 59 L* 124 H Uric Acid Calcium Total Bilirubin AST ALT Alkaline Phosphatase Total Protein Albumin HIV 1&2 Ab/P24 Ag 4thGn Blood Type Antibody Screen 03/02/23 03/02/23 03/03/23 18:38 20:52 04:22 WBC 11.8 H RBC 3.06 L Hgb 8.6 L Hct 26.7 L MCV 87.3 MCH 28.1 MCHC 32.2 RDW 14.0 Plt Count 259 MPV 10.3 Immature Gran % (Auto) 0.4 Neut % (Auto) 69.5 Lymph % (Auto) 21.9 Harding % (Auto) 7.3 Eos % (Auto) 0.6 Baso % (Auto) 0.3 Lymph # (Auto) 2.58 Harding # (Auto) 0.9 H Eos # (Auto) 0.1 Baso # (Auto) 0.0 Abs Immat Gran (auto) 0.05 H Absolute Neuts (auto) 8.2 H Absolute Nucleated RBC 0.0 Nucleated RBC % 0.0 Sodium Potassium Chloride Carbon Dioxide Anion Gap BUN Creatinine Estim Creat Clear Calc Estimated GFR Glucose POC Capillary Glucose 75 142 H Uric Acid Calcium Total Bilirubin AST ALT Alkaline Phosphatase Total Protein Albumin HIV 1&2 Ab/P24 Ag 4thGn Blood Type Antibody Screen 03/03/23 08:09 WBC RBC Hgb Hct MCV MCH MCHC RDW Plt Count MPV Immature Gran % (Auto) Neut % (Auto) Lymph % (Auto) Harding % (Auto) Eos % (Auto) Baso % (Auto) Lymph # (Auto) Harding # (Auto) Eos # (Auto) Baso # (Auto) Abs Immat Gran (auto) Absolute Neuts (auto) Absolute Nucleated RBC Nucleated RBC % Sodium Potassium Chloride Carbon Dioxide Anion Gap BUN Creatinine Estim Creat Clear Calc Estimated GFR Glucose POC Capillary Glucose 61 L Uric Acid Calcium Total Bilirubin AST ALT Alkaline Phosphatase Total Protein Albumin HIV 1&2 Ab/P24 Ag 4thGn Blood Type Antibody Screen OB - PN A/P Assessment and Plan (1) DM (diabetes mellitus): Code(s): E11.9 - Type 2 diabetes mellitus without complications Status: Acute
[2023-03-03] MEDS: DOCUSATE SODIUM 100 MG CAPSULE PO ×2 (08:37→17:55)
[2023-03-03] MEDS: INSULIN ASPART (*BKC) 100 UNITS/ML 20 UNITS SUB-Q (08:38)
[2023-03-03] MEDS: IBUPROFEN 600 MG TABLET PO ×3 (08:39→21:25)
[2023-03-03] MEDS: metFORMIN HCL XR 500 MG TAB.SR.24H PO (08:41)
[2023-03-03] MEDS: POLYSACCHARIDE IRON COMPLEX 150 MG CAPSULE PO ×2 (08:41→17:57)
[2023-03-03] MEDS: INSULIN GLARGINE (*BKC) 100 UNITS/ML 18 UNITS SUB-Q (09:34)
--- NOTE | 2023-03-03 13:10 | PC.NURSE ---
Blood sugar at 1310 63 and pt states is non symptomatic. Dr Cramer called for insulin orders.
[2023-03-03 13:15] VITALS: BP 130/76; PULSE 88; RESP 18; TEMP 36.6; O2SAT 100
[2023-03-03 13:18] LABS: Glucose Point of Care 63 mg/dl (65-105)
[2023-03-03] MEDS: HYDROcodone/acetaminophen (*CRX) 10-325 MG TABLET 1 TAB PO ×3 (14:51→21:25)
--- NOTE | 2023-03-03 16:00 | PC.NURSE ---
blood sugar results 167
[2023-03-03 16:37] LABS: Glucose Point of Care 167 mg/dl (65-105)
--- NOTE | 2023-03-03 18:00 | PC.NURSE ---
Blood sugar 98. Held Novolog per Dr Dhaliwal's orders
[2023-03-03 18:04] LABS: Glucose Point of Care 98 mg/dl (65-105)
--- NOTE | 2023-03-03 18:27 | WPDANLDNPN2 ---
Anes-Prog Note L&D-Neuraxial Date/Time: 03/03/23 18:27 Patient feedback: Patient satisfied with post-operative pain management.
--- NOTE | 2023-03-03 18:27 | WPDANLDPN2 ---
Anes-Prog Note L&D Date/Time: 03/03/23 18:27 Neuro status: Neuro function grossly intact. Cardiovascular status: normal Respiratory status: normal Airway patency: baseline Mental status: baseline Post-Op hydration status: normal Vital Signs: Last Vital Signs Temp 36.6 C 03/03/23 13:15 Pulse 88 03/03/23 13:15 Resp 18 03/03/23 13:15 BP 130/76 03/03/23 13:15 Pulse Ox 100 03/03/23 13:15 O2 Del Method Room Air 03/03/23 13:15 Pain score (VAS): 0 I/O: Intake & Output 03/03/23 03/03/23 03/03/23 07:59 15:59 23:59 Intake Total 1300 1840 Output Total 1500 600 Balance -200 1240 Post-procedural complaints: none Patient feedback: Patient satisfied with anesthetic care.
[2023-03-03 20:50] VITALS: BP 140/72; PULSE 99; RESP 18; TEMP 36.8
[2023-03-03 21:22] LABS: Glucose Point of Care 163 mg/dl (65-105)
[2023-03-04] MEDS: HYDROcodone/acetaminophen (*CRX) 10-325 MG TABLET 1 TAB PO ×3 (03:50→11:22)
[2023-03-04] MEDS: IBUPROFEN 600 MG TABLET PO ×2 (03:50→11:23)
--- NOTE | 2023-03-04 07:24 | PM.OBDSVD ---
DS: Admitting Diagnosis Discharge Date 03/04/23 Admitting Diagnosis Intrauterine at term Type 2 diabetes Chronic hypertension History of section x2 DS: Discharge Diagnosis Discharge Diagnosis (1) Encounter for sterilization: Code(s): Z30.2 - Encounter for sterilization Status: Acute (2) Chronic hypertension affecting : Code(s): O10.919 - Unspecified pre-existing hypertension complicating , unspecified trimester Status: Acute (3) Obesity affecting in third trimester: Code(s): O99.213 - Obesity complicating , third trimester Status: Acute (4) History of pre-eclampsia in prior , currently : Code(s): O09.299 - Supervision of with other poor reproductive or obstetric history, unspecified trimester Status: Acute (5) Supervision of high-risk : Code(s): O09.90 - Supervision of high risk , unspecified, unspecified trimester Status: Acute (6) Type 2 diabetes mellitus affecting in third trimester, antepartum: Code(s): O24.113 - Pre-existing type 2 diabetes mellitus, in , third trimester Status: Acute Assessment and Plan: type 2 diabetic previously on Trulicity Patient's sugars have been in the 60s. Patient had 1 elevated postprandial after eating a rash Sharif be treated Will discontinue insulin at this time Will change metformin to 500 mg b.i.d. Recommend follow-up with etcher enameling within the month to restart Trulicity patient has Dexcom continuous glucose monitor OB - DS: Summary OB Procedures : None OB Procedures Intrapartum: OB Procedures: : None Peripartum Data Infant Delivery Method: Section Procedures: Procedures Operation Date: 03/02/23 14:45 Actual Procedure Side Surgeon p Section Zain Dhaliwal MD complications: none Status at Discharge Functional status at discharge: independent ambulation Overall status at discharge: patient is progressing back to baseline Time Spent with Patient Time attestation: Total time spent providing and/or coordinating discharge services: Time spent: Less than 30 minutes Exam Const: General: comfortable and no acute distress Resp: Effort & Inspection: normal respiratory effort Auscultation: clear to auscultation bilaterally Cardio: Rate: regular rate GI: Inspection: non-distended GI Palp: Yes Soft to palpation, No Firmness to palpation present (GI), Yes Tenderness to palpation present (GI) (mild tenderness over incision ) and No Guarding due to palpation present (GI) Auscultation: normal bowel sounds Psych: Appearance: grossly normal Mental Status: mental status grossly normal DS: Data Data Completed and Pending Pending studies at discharge: Pending at discharge 03/02/23 15:36 Surgical [PTH] Routine Labs on day of discharge: Labs from last 24 hours 03/03/23 03/03/23 03/03/23 20:55 18:01 16:34 POC Capillary Glucose 163 H 98 167 H 03/03/23 03/03/23 13:15 08:09 POC Capillary Glucose 63 L 61 L Discharge Plan Discharge Discharging Clinician: Zain Dhaliwal Patient Disposition: Home, Self-Care Activity: pelvic rest Diet: diabetic Discharge Instructions: Education: Mom and Baby Guide Given to: Mother Follow-Up: Call your delivering provider's office for an appointment to be seen in: 1 Week Mom and baby should come to the [facility] for the follow-up appointment. Appointment Date/Time: March 05, 2023 at 9:00 am What to expect at your follow-up visit: Blood Pressure Check Call [phone] if you are unable to keep your appointment time. BREAST CARE: * Wear a snug supportive bra. * For engorgement discomfort: Bottle Feeding: * May apply ice packs ABDOMINAL INCISION: (if applicable) * Allow incision to air
[2023-03-04] MEDS: DOCUSATE SODIUM 100 MG CAPSULE PO (07:37)
[2023-03-04] MEDS: POLYSACCHARIDE IRON COMPLEX 150 MG CAPSULE PO (07:39)
[2023-03-04] MEDS: SIMETHICONE 80 MG TAB.CHEW PO ×2 (07:39→11:22)
[2023-03-04 07:40] VITALS: BP 125/73; PULSE 88; RESP 18; TEMP 36.7; O2SAT 100
[2023-03-04] MEDS: metFORMIN HCL XR 500 MG TAB.SR.24H PO (07:40)
--- NOTE | 2023-03-04 07:40 | PC.NURSE ---
PT introductions made and plan of care discussed per post op c section, pain management, bottle feeding, daily care activities and diabetic management and pending discharge to home. PT sole recipient of such instructions and no barriers to learning identified at this time. PT received such instructions per one to one discussion, mom baby care guide and demonstrations this shift. PT verbalized understanding of such care.
[2023-03-04 07:46] LABS: Glucose Point of Care 76 mg/dl (65-105)
--- NOTE | 2023-03-04 12:10 | PC.NURSE ---
Pt discharged to home ambulatory accompanied by infant, spouse and family and taken to waiting car. Follow up appts confirmed
[2023-03-05 08:42] LABS: Rapid Plasma Reagin Non-Reactive (NonReactive)
[2023-03-05 09:19] VITALS: BP 134/68; PULSE 91; RESP 18; TEMP 36.9; O2SAT 100
--- NOTE | 2023-03-05 09:34 | PC.NURSE ---
After printing paperwork mother asked what pain medication she was prescribed after looking at her chart and further discussion it was discovered that patient has had bariatric surgery. Patient was taking Motrin here in the hospital so that is why I suggested she add it at home but after finding out she had bariatric surgery I told her it was recommended that she not take it until she discussed it with Dr. Dhaliwal. She verbalized understanding.
== END 2023-03-04 12:10 | disposition home or self-care (01) | DRG 540 ==
LOC: ANHLDR 13:00 → ANHOB2 19:18
PROVIDERS: Admitting Provider Student in an Organized Health Care Education/Training Program; PCP Nurse Practitioner Family; Visit Provider Student in an Organized Health Care Education/Training Program
PROC: 10D00Z1 Extraction of Products of Conception, Low, Open Approach (ICD-10-PCS; CPT 59514; principal; 2023-03-02 14:45)
DX: O34.219 Maternal care for unspecified type scar from previous cesarean delivery (principal); O10.92 Unspecified pre-existing hypertension complicating childbirth; Z30.2 Encounter for sterilization; O99.214 Obesity complicating childbirth; O99.344 Other mental disorders complicating childbirth; F41.9 Anxiety disorder, unspecified; F32.A Depression, unspecified; O99.284 Endocrine, nutritional and metabolic diseases complicating childbirth; E28.2 Polycystic ovarian syndrome; O99.824 Streptococcus B carrier state complicating childbirth; O24.424 Gestational diabetes mellitus in childbirth, insulin controlled; O77.0 Labor and delivery complicated by meconium in amniotic fluid; O69.81X0 Labor and delivery complicated by cord around neck, without compression, not applicable or unspecified; O24.429 Gestational diabetes mellitus in childbirth, unspecified control; Z3A.38 38 weeks gestation of pregnancy; Z37.0 Single live birth; Z98.84 Bariatric surgery status; Z87.891 Personal history of nicotine dependence; E55.9 Vitamin D deficiency, unspecified; O99.52 Diseases of the respiratory system complicating childbirth; J45.909 Unspecified asthma, uncomplicated
CPT/HCPCS: 36415; 80053; 82948; 84550; 85025; 86592; 86703; 86850; 86900; 86901; 88302; 88307; A9270; G0432; J0690; J1815; J1885; J2274; J2590; J3010; J7120

== ENCOUNTER 2024-01-28 14:05 | Outpatient (CLI) | payer OTHER, SELFPAY ==
[2024-01-28 17:33] LABS: MALB Creatinine Ratio 47.3 mg/g (0-30); Microalbumin Urine Random 85.6 mg/L (0-16.7)
[2024-01-28 19:06] LABS: Vitamin D 25 Hydroxy 22.3 ng/mL
[2024-01-28 19:54] LABS: Alanine Aminotransferase 15 U/L (6-35); Albumin Level 4.5 g/dL (3.5-5.1); Alkaline Phosphatase 115 U/L (38-126); Anion Gap 11 mmol/L (4-12); Aspartate Amino Transferase 37 U/L (14-36); Bilirubin,Total 0.4 mg/dL (0.2-1.3); Blood Urea Nitrogen 13 mg/dL (7-17); Calcium 9.3 mg/dL (8.4-10.2); Carbon Dioxide 18 mmol/L (22-30); Chloride 110 mmol/L (98-107); Estimated Glomerular Filt Rate > 60; Glucose 109 mg/dL (65-110); HDL Direct 45 mg/dL; Sodium 139 mmol/L (137-145)
[2024-01-28 20:01] LABS: LDL Cholesterol Direct 128 mg/dL
[2024-01-30 12:18] LABS: DHEA-Sulfate 137 mcg/dL (23-266)
[2024-02-01 12:26] LABS: Testosterone Total 25 ng/dL (2-45)
== END 2024-01-28 14:06 | disposition home or self-care (01) ==
LOC: ANHWCLAB 14:06
PROVIDERS: Visit Provider Internal Medicine Endocrinology, Diabetes & Metabolism
DX: E78.5 Hyperlipidemia, unspecified (principal); E11.65 Type 2 diabetes mellitus with hyperglycemia; E28.2 Polycystic ovarian syndrome
CPT/HCPCS: 36415; 80053; 82043; 82306; 82607; 82627; 83718; 83721; 84403; 84443

== ENCOUNTER 2024-04-23 11:30 | Outpatient (CLI) | payer OTHER, SELFPAY ==
[2024-04-23 19:24] LABS: Basophils Percent Auto 0.4 % (0.2-1.2); Eosinophils Absolute Auto 0.2 K/mm3 (0-0.3); Eosinophils Percent Auto 2.3 % (0-4.4); Hematocrit 35.1 % (37.0-47.0); Hemoglobin 10.7 g/dL (12.0-15.0); Immature Granulocyte Absolute 0.01 K/mm3 (0.00-0.031); Immature Granulocyte Percent A 0.1 % (0-0.5); Lymphocytes Percent Auto 34.7 % (18.3-44.2); Mean Corpuscular HGB Conc 30.5 g/dl (32-36); Mean Corpuscular Hemoglobin 23.5 pg (26-34); Mean Platelet Volume 10.2 fl (7.4-10.4); Monocytes Absolute Auto 0.5 K/mm3 (0.1-0.6); Monocytes Percent Auto 6.9 % (2.6-8.5); Neutrophils Absolute Auto 3.8 K/mm3 (1.3-6.7); Neutrophils Percent Auto 55.6 % (45.5-73.1); Platelet Count Result 338 k/mm3 (150-375); Red Blood Count 4.56 M/mm3 (4.2-5.4); Red Cell Distribution Width 16.3 % (11.5-14.5); White Blood Count 6.9 K/mm3 (4.5-10.0)
[2024-04-23 20:02] LABS: Alanine Aminotransferase 17 U/L (6-35); Albumin Level 4.1 g/dL (3.5-5.1); Alkaline Phosphatase 110 U/L (38-126); Anion Gap 6 mmol/L (4-12); Aspartate Amino Transferase 20 U/L (14-36); Bilirubin,Total 0.4 mg/dL (0.2-1.3); Blood Urea Nitrogen 12 mg/dL (7-17); Calcium 8.7 mg/dL (8.4-10.2); Carbon Dioxide 26 mmol/L (22-30); Chloride 109 mmol/L (98-107); Estimated Glomerular Filt Rate > 60; Glucose 124 mg/dL (65-110); Potassium 4.1 mmol/L (3.4-5.0); Sodium 141 mmol/L (137-145)
[2024-04-23 20:57] LABS: Erythrocyte Sedimentation Rate 18 mm/hr (0-20)
[2024-04-27 15:09] LABS: Vitamin B6 25.5 ng/mL (2.1-21.7)
== END 2024-04-23 11:31 | disposition home or self-care (01) ==
LOC: ANHGOSHLAB 11:31
PROVIDERS: PCP Nurse Practitioner; Visit Provider Nurse Practitioner
DX: R20.0 Anesthesia of skin (principal); R20.2 Paresthesia of skin
CPT/HCPCS: 36415; 80053; 84207; 85025; 85652

== ENCOUNTER 2024-04-28 15:39 | Outpatient (NON) | payer OTHER, SELFPAY ==
[2024-04-28 21:12] LABS: Appearance Urine Cloudy (Clear); Bacteria Urine 4+ /hpf; Bilirubin Urine Negative (Negative); Blood Urine Negative (Negative); Color Urine Dark Yellow (Yellow); Glucose Urine UA Negative (Negative); Ketones Urine 1+ mg/dL (Negative); Leukocyte Esterase Ur 2+ LEU/UL (Negative); Nitrate Urine Positive (Negative); Protein Urine 1+ mg/dL (Negative); RBC Urine 0-2 /hpf (0-2); Specific Grav Ur 1.025 (1.001-1.035); Squamous Epithelial Cell Urine Occasional /hpf (Few); Urobilinogen Urine 0.2 mg/dL (<2.0); WBC Urine >100 /hpf (0-3); pH Urine 5.5 (5.0-9.0)
[2024-04-28 21:13] LABS: Add Urine Microscopic? YES
== END 2024-04-28 15:40 | disposition home or self-care (01) ==
LOC: ANHGOSHLAB 15:40
PROVIDERS: PCP Nurse Practitioner; Visit Provider Nurse Practitioner
DX: R30.0 Dysuria (principal)
CPT/HCPCS: 81001; 87077; 87086; 87088; 87186

== ENCOUNTER 2024-05-07 14:26 | Outpatient (CLI) | payer OTHER, SELFPAY ==
[2024-05-07 15:10] LABS: LDL Cholesterol Direct 109 mg/dL
[2024-05-07 15:13] LABS: Creatinine Urine 181.3 mg/dL
[2024-05-07 15:18] LABS: MALB Creatinine Ratio 17.1 mg/g (0-30)
[2024-05-07 17:21] LABS: Iron 25 ug/dL (37-170)
[2024-05-07 17:37] LABS: Percent Iron Saturation 6 % (20-50)
[2024-05-07 17:56] LABS: Ferritin 5.25 ng/mL (6.24-137)
[2024-05-07 18:02] LABS: Folic Acid 11.1 ng/mL (2.76->20)
== END 2024-05-07 14:27 | disposition home or self-care (01) ==
PROVIDERS: PCP Nurse Practitioner; Referring Provider Nurse Practitioner; Visit Provider Internal Medicine Endocrinology, Diabetes & Metabolism
DX: D64.9 Anemia, unspecified (principal); E78.5 Hyperlipidemia, unspecified; E11.65 Type 2 diabetes mellitus with hyperglycemia
CPT/HCPCS: 36415; 82043; 82607; 82728; 82746; 83540; 83550; 83721

== ENCOUNTER 2024-05-08 15:41 | Outpatient (CLI) | payer OTHER, SELFPAY ==
--- NOTE | ~2024-05-08 | MR_ITS ---
MRI of the cervical spine Clinical History: Paresthesia Technique: Axial T2-weighted and gradient images, and sagittal T1-weighted, T2-weighted, and STIR ashish ges were acquired. Findings: There is no fracture or subluxation of the cervical spine. There is straightening of the no rmal cervical lordosis. No bone marrow signal abnormality seen. At C2-C3, there is no disc bulge or herniation. No spinal canal stenosis, cord compression, or neural foraminal narrowing. At C3-C4, there is minimal disc bulge. No spinal canal stenosis, cord compression, or neural foramina l narrowing evident. At C4-C5, there is no disc bulge or herniation. No spinal canal stenosis, cord compression, or defini te neural foraminal narrowing. Probable mild facet arthropathy bilaterally, right worse than left. At C5-C6, there is minimal disc osteophyte complex. No hussain canal stenosis, cord compression, or def inite neural foraminal narrowing. At C6-C7, there is minimal disc osteophyte convex. No canal stenosis, cord compression, or neural for aminal narrowing identified. No abnormal signal seen in the spinal cord. Paravertebral soft tissues are unremarkable. Impression: Minimal degenerative spondylosis, as above. Reviewed, dictated and finalized at location . Impression: Minimal degenerative spondylosis, as above.
--- NOTE | ~2024-05-08 | MR_ITS ---
MRI of the brain Clinical History: Paresthesia of skin Technique: Axial and sagittal T1-weighted images were acquired. These were followed by axial T2-weigh eden, diffusion weighted, gradient, and FLAIR images. Following intravenous administration of 20 cc Mu ltiHance gadolinium, T1-weighted fat-sat imaging was performed in the axial and coronal planes. Findings: No abnormal signal seen in the brain parenchyma. No acute infarct, intracranial hemorrhage, or mass lesion. Ventricles and subarachnoid spaces are unremarkable. Orbits are unremarkable. Paranasal sinuses and m astoid air cells are clear. Major intracranial flow voids are intact. Sagittal midline structures are intact. No abnormal postcontrast enhancement identified. IMPRESSION: Normal exam. Reviewed, dictated and finalized at location M. IMPRESSION: Normal exam.
== END 2024-05-08 15:42 | disposition home or self-care (01) ==
LOC: ANHIMG 15:42
PROVIDERS: PCP Nurse Practitioner; Visit Provider Nurse Practitioner
DX: R29.898 Other symptoms and signs involving the musculoskeletal system (principal); M47.892 Other spondylosis, cervical region
CPT/HCPCS: 70553; 72141; A9577

== ENCOUNTER 2024-05-14 16:45 | Outpatient (CLI) | payer OTHER, SELFPAY ==
[2024-05-14 17:29] LABS: Basophils Percent Auto 0.3 % (0.2-1.2); Eosinophils Absolute Auto 0.1 K/mm3 (0-0.3); Eosinophils Percent Auto 0.9 % (0-4.4); Hematocrit 36.5 % (37.0-47.0); Hemoglobin 11.4 g/dL (12.0-15.0); Immature Granulocyte Absolute 0.03 K/mm3 (0.00-0.031); Immature Granulocyte Percent A 0.3 % (0-0.5); Lymphocytes Percent Auto 27.6 % (18.3-44.2); Mean Corpuscular HGB Conc 31.2 g/dl (32-36); Mean Corpuscular Hemoglobin 23.9 pg (26-34); Mean Corpuscular Volume 76.7 fl (80-100); Monocytes Absolute Auto 0.6 K/mm3 (0.1-0.6); Monocytes Percent Auto 5.9 % (2.6-8.5); Neutrophils Absolute Auto 6.4 K/mm3 (1.3-6.7); Platelet Count Result 369 k/mm3 (150-375); Red Blood Count 4.76 M/mm3 (4.2-5.4); Red Cell Distribution Width 16.2 % (11.5-14.5); White Blood Count 9.8 K/mm3 (4.5-10.0)
[2024-05-14 17:47] LABS: Alanine Aminotransferase 20 U/L (6-35); Albumin Level 4.6 g/dL (3.5-5.1); Alkaline Phosphatase 115 U/L (38-126); Anion Gap 13 mmol/L (4-12); Aspartate Amino Transferase 19 U/L (14-36); Bilirubin,Total 0.4 mg/dL (0.2-1.3); Blood Urea Nitrogen 13 mg/dL (7-17); Carbon Dioxide 23 mmol/L (22-30); Chloride 102 mmol/L (98-107); Estimated Glomerular Filt Rate > 60; Glucose 110 mg/dL (65-110); Potassium 4.1 mmol/L (3.4-5.0); Sodium 138 mmol/L (137-145)
== END 2024-05-14 16:46 | disposition home or self-care (01) ==
LOC: ANHLAB 16:46
PROVIDERS: PCP Nurse Practitioner; Visit Provider Clinical Nurse Specialist
DX: D64.9 Anemia, unspecified (principal)
CPT/HCPCS: 36415; 80053; 85025

== ENCOUNTER 2024-08-05 00:23 | Emergency (ER) | payer OTHER, SELFPAY ==
--- NOTE | ~2024-08-05 | CT_ITS ---
CT of the Abdomen and Pelvis: Indication: Abdominal pain Technique: 2.5 mm axial scans were obtained through the abdomen and pelvis following intravenous adm inistration of 100 cc of Omnipaque 350. Dose reduction technique was used on this scan by utilizing a utomated exposure control and iterative reconstruction technique. The dose-length product (DLP) was 1 012.95 mGy-cm. Findings: Scans through the lung bases are unremarkable. The liver, spleen, pancreas, adrenals and kidneys are within normal limits. Cholecystectomy clips are present. No evidence of aortic aneurysm. No lymphadenopathy. No bowel obstruction or bowel wall thickening. There is evidence of prior bariatric surgery. Images through the pelvis were performed. Urinary bladder unremarkable. No adnexal mass seen. No asci soren. Impression: No acute abnormalities seen. Reviewed, dictated and finalized at [facility]. Impression: No acute abnormalities seen.
--- NOTE | ~2024-08-05 | US_ITS ---
Pelvic ultrasound. Clinical History: Right lower quadrant pain Technique: Realtime transabdominal and transvaginal scanning of the pelvis was performed. Color flow Doppler and Doppler spectral analysis were performed. Findings: The uterus is anteverted. The endometrial stripe has a thickness of 5 mm. No focal mass is identified. The right ovary measures 3.2 x 2.0 x 3.4 cm. No significant right ovarian or adnexal mass is seen. The left ovary measures 2.6 x 1.9 x 3.0 cm. No significant left ovarian or adnexal mass is seen. Both ovaries demonstrate small peripherally oriented follicular cysts, which could reflect PCOS. There is trace free fluid in the cul de sac. Impression: Morphologic findings of the ovaries raise the possibility of polycystic ovarian syndrome. Correlate c mynor. Reviewed, dictated and finalized at [facility]. Impression: Morphologic findings of the ovaries raise the possibility of polycystic ovarian syndrome. Correlate clinically.
[2024-08-05 00:52] VITALS: BP 155/87; PULSE 87; RESP 18; TEMP 36.4; O2SAT 100
[2024-08-05 01:11] LABS: Basophils Percent Auto 0.2 % (0.2-1.2); Eosinophils Absolute Auto 0.1 K/mm3 (0-0.3); Eosinophils Percent Auto 1.5 % (0-4.4); Hematocrit 31.9 % (37.0-47.0); Hemoglobin 9.9 g/dL (12.0-15.0); Immature Granulocyte Absolute 0.02 K/mm3 (0.00-0.031); Immature Granulocyte Percent A 0.2 % (0-0.5); Lymphocytes Absolute Auto 3.68 K/mm3 (0.9-3.2); Lymphocytes Percent Auto 39.1 % (18.3-44.2); Mean Corpuscular Hemoglobin 23.9 pg (26-34); Mean Corpuscular Volume 77.1 fl (80-100); Mean Platelet Volume 9.7 fl (7.4-10.4); Monocytes Absolute Auto 0.6 K/mm3 (0.1-0.6); Monocytes Percent Auto 6.8 % (2.6-8.5); Neutrophils Absolute Auto 4.9 K/mm3 (1.3-6.7); Neutrophils Percent Auto 52.2 % (45.5-73.1); Platelet Count Result 328 k/mm3 (150-375); Red Blood Count 4.14 M/mm3 (4.2-5.4); Red Cell Distribution Width 14.8 % (11.5-14.5); White Blood Count 9.4 K/mm3 (4.5-10.0)
[2024-08-05 01:20] LABS: Add Urine Microscopic? YES; Appearance Urine Clear (Clear); Bacteria Urine Rare /hpf; Bilirubin Urine Negative (Negative); Blood Urine 3+ (Negative); Color Urine Yellow (Yellow); Glucose Urine UA Negative (Negative); Ketones Urine Negative (Negative); Leukocyte Esterase Ur Trace LEU/UL (Negative); Nitrate Urine Negative (Negative); Non Pathogenic Casts 0-2; Protein Urine Negative (Negative); RBC Urine 0-2 /hpf (0-2); Specific Grav Ur 1.021 (1.001-1.035); Squamous Epithelial Cell Urine None Seen /hpf (Few); WBC Urine 0-5 /hpf (0-3)
[2024-08-05 01:24] LABS: Alanine Aminotransferase 17 U/L (6-35); Albumin Level 3.9 g/dL (3.5-5.1); Alkaline Phosphatase 93 U/L (38-126); Anion Gap 9 mmol/L (4-12); Aspartate Amino Transferase 24 U/L (14-36); Bilirubin,Total 0.4 mg/dL (0.2-1.3); Blood Urea Nitrogen 20 mg/dL (7-17); Calcium 8.7 mg/dL (8.4-10.2); Carbon Dioxide 25 mmol/L (22-30); Chloride 103 mmol/L (98-107); Estimated CRCL calculation 140 ml/min; Estimated Glomerular Filt Rate > 60; Glucose 139 mg/dL (65-110); Lipase 315 U/L (23-300); Sodium 137 mmol/L (137-145)
[2024-08-05] MEDS: ACETAMINOPHEN 500 MG TABLET 1000 MG PO (01:26)
[2024-08-05] MEDS: MORPHINE SULFATE (*CRX) 4 MG/ML INJ IV PUSH (01:26)
[2024-08-05] MEDS: ONDANSETRON INJ 4 MG/2 ML VIAL IV PUSH (01:26)
--- NOTE | 2024-08-05 01:42 | ED.ABDPAIN ---
HPI - Abdominal Pain General Chief Complaint: Abdominal Pain <SOM Pathak Last Filed: 08/05/24 03:41> Stated Complaint: abd pain <SOM Pathak Last Filed: 08/05/24 03:41> Time Seen by Provider: 08/05/24 00:33 <SOM Pathak Last Filed: 08/05/24 03:41> Source: patient <SOM Pathak Last Filed: 08/05/24 03:41> Mode of arrival: ambulatory <SOM Pathak Last Filed: 08/05/24 03:41> Limitations: no limitations <SOM Pathak Last Filed: 08/05/24 03:41> History of Present Illness HPI narrative: Patient is a 39-year-old female, with PMH of DM, PCOS, anemia, who presents the ED with report of right lower abdominal pain. Patient reports a history of previous bariatric surgery in 2020 and states she has had issues with pain and spasms throughout her abdomen since then. She states since Sunday, she has had fairly consistent pain in her right lower abdomen. Worse with any type of movement, activity, coughing, laughing, straining. She has been taking muscle relaxers for this without improvement. She contacted her bariatric surgeon and was told she may have a hernia. She was unable to be seen for an appointment until next month. She denies any nausea, vomiting, diarrhea. Has frequent constipation, but last bowel movement was this morning. Denies fevers, urinary complaints. <SOM Pathak Last Filed: 08/05/24 03:41> Related Data Home Medications: Home Medications Medication Instructions Recorded Confirmed valacyclovir 1 gram tablet 1,000 mg PO DAILY 03/02/23 05/14/24 magnesium oxide 400 mg (241.3 mg 400 mg PO DAILY 04/28/24 05/14/24 magnesium) tablet ferrous sulfate 325 mg (65 mg 325 mg PO DAILY 05/08/24 05/14/24 iron) tablet <SOM Pathak Last Filed: 08/05/24 03:41> Allergies/Adverse Reactions: Allergies Allergy/AdvReac Type Severity Reaction Status Date / Time No Known Allergies Allergy Verified 08/05/24 00:53 <Stephenie Jenkins PA-C - Last Filed: 08/05/24 03:41> Review of Systems Review of Systems: All systems reviewed & are unremarkable except as noted in HPI. <Stephenie Jenkins PA-C - Last Filed: 08/05/24 03:41> All systems reviewed & are unremarkable except as noted in HPI and below <Stephenie Jenkins PA-C - Last Filed: 08/05/24 03:41> PMFSH Past Medical History Medical History: Medical History Anxiety Asthma Depression DM (diabetes mellitus) FH: cholecystectomy Hyperlipidemia Miscarriage Obesity (BMI 30-39.9) Ovarian cyst PCOS (polycystic ovarian syndrome) Suppression of menses Vaginal irritation Vitamin D deficiency <Stephenie Jenkins PA-C - Last Filed: 08/05/24 03:41> Surgical History Surgical History: Surgical History Gastric bypass status for obesity 09/05/2021 H/O tubal ligation Previous section x3 <Stephenie Jenkins PA-C - Last Filed: 08/05/24 03:41> Family History Family History: Family History Father Hypertension Mother Diabetes mellitus <Stephenie Jenkins PA-C - Last Filed: 08/05/24 03:41> Social History Social History: Social History Smoking status: Never smoker Second hand tobacco smoke exposure: No Smoking end date: 10/22/11 Alcohol intake: never Substance use: never Substance use type: does not use Lack of Transportation: No Lack of Food: Never True Current Housing: I Have Housing Concerned About Future Housing: No Difficulty Paying Gas/Electric Bills: No Difficulty Paying for Meds: No Currently Unemployed: No Education: Don't Know Difficulty w/ Childcare or Family C
[2024-08-05 01:53] LABS: Pregnancy On Board Control Positive; Urine Pregnancy Test Negative
--- NOTE | 2024-08-05 01:53 | ECG_ITS ---
Test Date: 2024-08-05 01:57:50 Measurements Intervals [place] Rate: 83 P: 33 NE: 138 QRS: -12 QRSD: 94 T: 21 QT: 364 QTc: 429 Interpretive Statements SINUS RHYTHM No previous ECG available for comparison Electronically Signed On 08-05-2024 12:23:35 CDT by Jamila Marquez M.D.
[2024-08-05 02:07] LABS: BEDSIDEPREGUCG Negative (Negative)
[2024-08-05 03:55] VITALS: BP 142/86; PULSE 81; RESP 18; O2SAT 100
== END 2024-08-05 06:35 | disposition home or self-care (01) ==
PROVIDERS: Emergency Provider Physician Assistant; PCP Nurse Practitioner
DX: D64.9 Anemia, unspecified (principal); F41.9 Anxiety disorder, unspecified; J45.909 Unspecified asthma, uncomplicated; F32.A Depression, unspecified; E11.9 Type 2 diabetes mellitus without complications; Z98.84 Bariatric surgery status
CPT/HCPCS: 36415; 74177; 76830; 76856; 80053; 81001; 81025; 83690; 85025; 93005; 96374; 96375; 99284; A9270; J2270; J2405; Q9967

== ENCOUNTER 2024-08-06 16:51 | Outpatient (CLI) | payer OTHER, SELFPAY | END 2024-08-06 16:52 | disposition home or self-care (01) | LOC: ANHLAB 16:53 | PROVIDERS: PCP Nurse Practitioner; Visit Provider Student in an Organized Health Care Education/Training Program | DX: E28.2 Polycystic ovarian syndrome (principal) | CPT/HCPCS: 36415; 82627; 84403 ==

== ENCOUNTER 2025-05-05 22:49 | Emergency (ER) | payer OTHER, SELFPAY ==
--- NOTE | ~2025-05-05 | CT_ITS ---
Noncontrast CT scan of the cervical spine Technique: Multiple contiguous axial [address] images of the cervical spine were obtained and rec onstructed in 2D sagittal and coronal planes on the acquisition scanner. Dose reduction technique was used on this scan by utilizing automated exposure control, adjustment of the mA and/or kV according to patient size. The dose-length product (DLP) was 538.72 mGy-cm. Clinical History: Pain Findings: No fractures or dislocations. There is minimal reversal of the normal cervical lordosis. T he intervertebral disc spaces are preserved. No prevertebral soft tissue swelling. Impression: No fracture or subluxation of the cervical spine. Minimal reversal of the normal cervical lordosis. Reviewed, dictated and finalized at location . Impression: No fracture or subluxation of the cervical spine. Minimal reversal of the normal cervical lordosis.
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
[2025-05-05 22:49] VITALS: BP 141/82; PULSE 87; RESP 18; TEMP 36.6; O2SAT 100
--- OUTSIDE RECORDS SUMMARY | 2025-05-05 23:09 | XMS_ITS | Encounter Summary ---
Author Organization [facility] Address [address] [place] [id number] Care Team Providers Care Hat And Cap Sewer Name Role Phone Unknown, Notinfile Primary Care Provider Unavail able Encounter Details Date Type Department Care Team (Late st Contact Info) Description 03/07/2025 Results Follow-Up [facility] at [address] [id number] Tamanna Coleman PA [address] [place] [address] [address] [place] [address] Vaginitis panel Vaginal Social History Tobacco Use Types Packs/Day Years Used Date Smoking Tobacco: Former Comments Unknown Sex and Gender Information Value Date Recorded Sex Assigned at Not on file 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 She was treated at time of visit, no additional intervention required at this time. documented in this encounter Plan of Treatment Not on file documented as of this encounter Visit Diagnoses Not on filedocumented in this encounter Additional Health Concerns Infection Onset Date Last Indicated Resolved Time COVID: Suspected 03/07/2025 03/07/2025 03/07/2025 2:50 PM CDT documented as of this encounter Care Teams Hat And Cap Sewer Relationship Specialty Start Date End Date Unknown, Tim PCP - General 12/09/23 documented as of this encounter
--- OUTSIDE RECORDS SUMMARY | 2025-05-05 23:09 | XMS_ITS | Data Portability ---
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 Options discussed with patient. Will schedule for excision / destruction here in the office under local anesthesia. Risks and benefits were discussed. Risks include bleeding infection Not available 08/09/2023 10:49:14 09/20/2023 09/20/2023 neurofibroma lower neck. Procedure performed. Dictated. Follow up p.r.n. Not available 09/20/2023 13:17:09 Plan of Treatment Reminders Order Date Submit Date Provider Last Modified By Organization Details Last Modified Time Details Appointments None recorded. Lab lipid panel, serum 023 023 [facility] (Lab), [address] [place], [address], 3 12:47:46 vitamin B12 + folate, serum or blood 023 023 [email or web address] (Lab), [address] [place], [address], 3 09:03:12 TSH, serum or plasma 023 023 [facility] (Lab), [address] [place], [address], 3 12:59:04 T4, free, serum 023 023 [facility] (Lab), [address] [place], [address], 3 12:47:52 vitamin D, 25-hydrox y, total, serum [email or web address] (Lab), [address] [place], [address], 3 09:03:12 testoster one, free + total, serum 023 023 [facility] (Lab), [address] [place], [address], 3 13:11:14 dhea-sulf ate, serum 023 023 [facility] (Lab), [address] [place], [address], 3 08:17:09 glycohemo globin, total, blood 023 023 [facility] (Lab), [address] [place], [address], 3 15:38:36 CMP, serum or plasma 023 023 [facility] (Lab), [address] [place], [address], 3 12:47:42 microalbu min/creat inine, ratio, urine 023 023 [facility] (Lab), [address] [place], [address], 3 12:31:40 CBC w/ auto diff 023 023 [facility] (Lab), [address] [place], [address], 3 12:30:27 insulin, serum 023 023 [facility] (Lab), [address] [place], [address], 3 11:11:26 Referral None recorded. Procedures None recorded. Surgeries None recorded. Imaging None recorded. Medication Orders None recorded. Patient TargetsNo targets recorded. Patient Instructions Encounter Date Encounter Id Patient Instructions Last Modified By Organization Details Last Modified Time 04/12/2023 [id number] INFLUENZA VACCIN E TD/TDAP MAMMOGRAM CERVICAL SCREENING/PELVIC EXAMINATION COLORECTAL SCREENING DEPRESSION SCREENING BMI NUTRITION PHYSICAL ACTIVITY VISION Your next exam in: ALCOHOL USE TOBACCO USE SEXUALLY ACTIVE GLUCOSE SCREENING LIPID SCREENING [email or web address] Not available 04/12/2023 17:21:18 Reason for Referral None Reported. Results Created Date Observation Date Name Description Value Unit Range Abnormal Flag Note LastModifiedBy Organization Detail LastModifiedTime 06/20/20 22 06/30/2022 TESTO STERO NE, FREE+ TOTAL LC/MS testosterone , total, lc/MS 26.6 NG/dL 10.0-5 5.0 Not Available [facility] (Lab) [address] [place], [address], 06/30/2022 13:09:38 06/20/20 22 06/30/2022 TESTO STERO NE, FREE+ TOTAL LC/MS testosterone , free 0.56 NG/dL 0.10-0 .85 Not Available [facility] (Lab) [address] [place], [address], 06/30/2022 13:09:38 06/20/20 22 06/30/2022 TESTO STERO NE, FREE+ TOTAL LC/MS % free testosterone 2.09 % 0.50-2 .80 Perfo rmed at: [facility] [address] , [place] [address] Lab Direc tor: Debby price MD, Phone : [phone] Not Available [facility] (Lab) [address] [place], [address], 06/30/2022 13:09:38 06/20/20 22 06/21/2022 DHEA- SULFA TE DHEA-sulfate 146.0 ug/dL 57.3-2 79.2 Perfo rmed at: [facility] [address] [facility], [place] [address] Lab Direc tor: Laron garrison PhD, Phone : [phone] Not Available [facility] (Lab) [address] [place], [address], 06/21/2022 08:14:40 06/20/20 22 06/20/2022 HEMOG LOBIN A1C HA1C 6.9 % 4.0-6. 0 high Diabe ting Scree alexsandra Crite johnny: <5.7% Consi stent with absen ce of diabe ting 5.7-6 .4% Consi stent with incre ased risk for diabe ting (pred iabet es) >OR=6 .5% Consi stent with diabe ting REFER ENCE: Diabe ting Care 2016, 39(Velasquez ppl.1 ):s13 -s22 Not Available [facility] (Lab) [address] [place], [address], 06/20/2022 18:01:29 06/20/20 22 06/20/2022 FOLAT E, SERUM /PLAS MA folate >20.0 NG/mL 2.76-2 0.0 Not Available [facility] (Lab) [address] [place], [address], 06/20/2022 15:59:54 06/20/20 22 06/20/2022 VITAM IN B12 (IRASEMA MICHAEL ) vb12 >1000 pg/mL 239-93 1 high Not Available [facility] (Lab) [address] [place], [address], 06/20/2022 15:59:52 06/20/20 22 06/20/2022 TSH W/REF CAROL FT4 TSH with reflex free T4 1.560 uIU/m L 0.465- 4.680 Not Available [facility] (Lab) [address] [place], [address], 06/20/2022 15:34:51 06/20/20 22 06/20/2022 VITAM IN D 25-HY DROXY [id number] 46.0 NG/mL 30-100 Vitam in D Statu s: Defic ient: <20 ng/mL Insuf ficie nt: 20-29 ng/mL Suffi cient : 30-10 0 ng/mL Not Available [facility] (Lab) [address] [place], [address], 06/20/2022 15:10:12 06/20/20 22 06/20/2022 LIPID PANEL cholesterol 158 mg/dL 140-19 9 NIH JARVIS NSUS RECOM MENDA TION FOR SALINAS STERO L: ADULT CHILD LOW RISK: <200 <170 BORDE RLINE : <200- 239 ----- HIGH RISK: >240 >200 Not Available [facility] (Lab) [address] [place], [address], 06/20/2022 15:02:12 06/20/20 22 06/20/2022 LIPID PANEL triglyceride s 167 mg/dL 0-150 high NIH JARVIS NSUS REPOR T RECOM MENDA TION FOR TRIGL YCERI SCOTT: ADULT CHILD LOW RISK: <150 ----- BODER LINE: 150-1 99 ----- HIGH RISK: >200 ----- Not Available [facility] (Lab) [address] [place], [address], 06/20/2022 15:02:12 06/20/20 22 06/20/2022 LIPID PANEL HDL cholesterol 59 mg/dL 40- Not Available [facility] (Lab) [address] [place], [address], 06/20/2022 15:02:12 06/20/20 22 06/20/2022 LIPID PANEL LDL cholesterol, calculated 66 mg/dL 0-130 NIH JARVIS NSUS REPOR T RECOM MENDA TIONS FOR LDL: ADULT CHILD LOW RISK <130 <110 (OPTI MAL LDL) <100 ----- BORDE RLINE : 130-1 59 ----- HIGH RISK: >160 >130 A TRIGL YCERI DE RESUL T >400 INVAL IDATE S THE CALCU LATIO N FOR LDL FRACT IONAT ION - THE LDL RESUL T WILL NOT BE REPOR LUCÍA. Not Available [facility] (Lab) [address] [place], [address], 06/20/2022 15:02:12 06/20/20 22 06/20/2022 MAGNE SIUM magnesium 1.7 mg/dL 1.6-2. 3 Not Available [facility] (Lab) [address] [place], [address], 06/20/2022 15:02:11 06/20/20 22 06/20/2022 COMPR EHENS NANCY METAB OLIC PANEL sodium 138 mmol/ L 137-14 5 Not Available [facility] (Lab) [address] [place], [address], 06/20/2022 15:02:01 06/20/20 22 06/20/2022 COMPR EHENS NANCY METAB OLIC PANEL potassium 4.7 mmol/ L 3.5-5. 1 Not Available [facility] (Lab) [address] [place], [address], 06/20/2022 15:02:01 06/20/20 22 06/20/2022 COMPR EHENS NANCY METAB OLIC PANEL chloride 102 mmol/ L 98-107 Not Available [facility] (Lab) [address] [place], [address], 06/20/2022 15:02:01 06/20/20 22 06/20/2022 COMPR EHENS NANCY METAB OLIC PANEL carbon dioxide 28 mmol/ L 22-30 Not Available [facility] (Lab) [address] [place], [address], 06/20/2022 15:02:01 06/20/20 22 06/20/2022 COMPR EHENS NANCY METAB OLIC PANEL anion gap 12.7 mmol/ L 14-22 low Not Available [facility] (Lab) [address] [place], [address], 06/20/2022 15:02:01 06/20/20 22 06/20/2022 COMPR EHENS NANCY METAB OLIC PANEL glucose 85 mg/dL 70-99 Not Available [facility] (Lab) [address] [place], [address], 06/20/2022 15:02:01 06/20/20 22 06/20/2022 COMPR EHENS NANCY METAB OLIC PANEL BUN 17 mg/dL 8-19 Not Available [facility] (Lab) [address] [place], [address], 06/20/2022 15:02:01 06/20/20 22 06/20/2022 COMPR EHENS NANCY METAB OLIC PANEL creatinine 0.48 mg/dL 0.66-1 .25 low Not Available [facility] (Lab) [address] [place], [address], 06/20/2022 15:02:01 06/20/20 22 06/20/2022 COMPR EHENS NANCY METAB OLIC PANEL GFR >60 Refer ence Range : [place] ge GFR Healt hy Adult : >60 mL/mi n/1.7 3 m2 Chron ic Kidne y Disea se: 15-60 mL/mi n/1.7 3 m2 Kidne y Failu re: <15/m L/min /1.73 m2 www.n iddk. nih.g ov The MDRD study equat ion has not been valid ated in child jericho <18 years of age; pregn ant women ; the elder ly >85 years of age; or in some racia l or ethni c subgr oups, such as Hispa nics. Outsi de the valid ated last eters , estim ated GFR is less accur ate, requi ring clini shubham judgm ent on a case- by-ca se basis . Clini shubham inter preta tion for other races and ages must be made by the clini pranav. The MDRD study equat ion has not been valid ated for the evalu ation of serum creat inine relat ed to nutri shellie l statu s or medic ation usage . For perso ns <18 years of age, a pedia tric GFR calcu lator is avail able on the [facility] websi te: https :[email or web address] corona.thalia girard.o rg/pr ofess ional s/kdo qi/gf r_cal culat or Not Available [facility] (Lab) [address] [place], [address], 06/20/2022 15:02:01 06/20/20 22 06/20/2022 COMPR EHENS NANCY METAB OLIC PANEL alkaline phosphatase 88 U/L 38-126 Not Available [facility] (Lab) [address] [place], [address], 06/20/2022 15:02:01 06/20/20 22 06/20/2022 COMPR EHENS NANCY METAB OLIC PANEL alanine aminotransfe rase 26 U/L 0-35 Not Available [facility] (Lab) [address] [place], [address], 06/20/2022 15:02:01 06/20/20 22 06/20/2022 COMPR EHENS NANCY METAB OLIC PANEL aspartate aminotransfe rase 17 U/L 15-37 Not Available [facility] (Lab) [address] [place], [address], 06/20/2022 15:02:01 06/20/20 22 06/20/2022 COMPR EHENS NANCY METAB OLIC PANEL bilirubin, total 0.40 mg/dL 0.20-1 .30 Not Available [facility] (Lab) [address] [place], [address], 06/20/2022 15:02:01 06/20/20 22 06/20/2022 COMPR EHENS NANCY METAB OLIC PANEL calcium 9.4 mg/dL 8.4-10 .2 Not Available [facility] (Lab) [address] [place], [address], 06/20/2022 15:02:01 06/20/20 22 06/20/2022 COMPR EHENS NANCY METAB OLIC PANEL total protein 7.1 g/dL 6.3-8. 2 Not Available [facility] (Lab) [address] [place], [address], 06/20/2022 15:02:01 06/20/20 22 06/20/2022 COMPR EHENS NANCY METAB OLIC PANEL albumin 4.2 g/dL 3.4-5. 0 Not Available [facility] (Lab) [address] [place], [address], 06/20/2022 15:02:01 06/20/20 22 06/20/2022 COMPR EHENS NANCY METAB OLIC PANEL globulin 2.9 g/dL 2.6-4. 2 Not Available [facility] (Lab) [address] [place], [address], 06/20/2022 15:02:01 06/20/20 22 06/20/2022 COMPR EHENS NANCY METAB OLIC PANEL A/G ratio 1.4 ratio 1.0-2. 0 Not Available [facility] (Lab) [address] [place], [address], 06/20/2022 15:02:01 06/20/20 22 06/20/2022 MICRO ALBUM N RNDM W/CRE AT RATIO ur creat 46.51 mg/dL REFER ENCE RANGE NOT ESTAB LISHE D FOR RANDO M URINE CREAT ININE Not Available [facility] (Lab) [address] [place], [address], 06/20/2022 14:43:25 06/20/20 22 06/20/2022 MICRO ALBUM N RNDM W/CRE AT RATIO microalbumin , urine 10.1 mg/L 0.0-16 .6 Not Available [facility] (Lab) [address] [place], [address], 06/20/2022 14:43:25 06/20/20 22 06/20/2022 MICRO ALBUM N RNDM W/CRE AT RATIO microalbumin /creatinine ratio 22 mcg/m g 0-29 THE AMERI CAN DIABE TING ASSOC IATIO N DEFIN ES ABNOR MALIT IES IN ALBUM IN EXCRE TION FOLLO WS: CATEG ORY RESUL T (MCG/ MG CREAT ININE ) ALTA L <30 MICRO ALBUM INURI A 30-29 9 CLINI SH[facility] ALBUM INURI A > OR = 300 THE ADA RECOM MENDS THAT 2 OF 2 SPECI MENS COLLE CTED WITHI N A 3- TO 6-MON TH PERIO D BE ABNOR MAL BEFOR E CONSI MICHAEL G A PATIE NT TO HAVE CROSS ED ONE OF THESE DIAGN OSTIC THRES HOLDS . REFER ENCE: DIABE TING CARE, VOL. 26: S94-S 96, 2002 Not Available [facility] (Lab) [address] [place], [address], 06/20/2022 14:43:25 06/20/20 22 06/20/2022 CBC/C OMPLE TE BLD COUNT W/DIF F white blood cells 10.5 x10'3 /uL 4.2-10 .8 Not Available [facility] (Lab) [address] [place], [address], 06/20/2022 14:15:24 06/20/20 22 06/20/2022 CBC/C OMPLE TE BLD COUNT W/DIF F red blood cells 4.37 x10'6 /uL 3.80-5 .20 Not Available [facility] (Lab) [address] [place], [address], 06/20/2022 14:15:24 06/20/20 22 06/20/2022 CBC/C OMPLE TE BLD COUNT W/DIF F hemoglobin 12.9 g/dL 12.0-1 5.6 Not Available [facility] (Lab) [address] [place], [address], 06/20/2022 14:15:24 06/20/20 22 06/20/2022 CBC/C OMPLE TE BLD COUNT W/DIF F hematocrit 39.6 % 35.7-4 5.7 Not Available [facility] (Lab) [address] [place], [address], 06/20/2022 14:15:24 06/20/20 22 06/20/2022 CBC/C OMPLE TE BLD COUNT W/DIF F mean red cell volume 90.6 fL 82.0-9 9.0 Not Available [facility] (Lab) [address] [place], [address], 06/20/2022 14:15:24 06/20/20 22 06/20/2022 CBC/C OMPLE TE BLD COUNT W/DIF F mean red cell hemoglobin 29.5 pg 27.0-3 3.0 Not Available [facility] (Lab) [address] [place], [address], 06/20/2022 14:15:24 06/20/20 22 06/20/2022 CBC/C OMPLE TE BLD COUNT W/DIF F mean RBC HGB concentratio n 32.6 g/dL 31.0-3 6.0 Not Available [facility] (Lab) [address] [place], [address], 06/20/2022 14:15:24 06/20/20 22 06/20/2022 CBC/C OMPLE TE BLD COUNT W/DIF F red cell distribution width 13.4 % 11.8-1 5.5 Not Available [facility] (Lab) [address] [place], [address], 06/20/2022 14:15:24 06/20/20 22 06/20/2022 CBC/C OMPLE TE BLD COUNT W/DIF F platelets 350 x10'3 /uL 150-40 0 Not Available [facility] (Lab) [address] [place], [address], 06/20/2022 14:15:24 06/20/20 22 06/20/2022 CBC/C OMPLE TE BLD COUNT W/DIF F mean platelet volume 10.1 fL 9.0-12 .4 Not Available [facility] (Lab) [address] [place], [address], 06/20/2022 14:15:24 06/20/20 22 06/20/2022 CBC/C OMPLE TE BLD COUNT W/DIF F neutrophils 62.8 % 39.0-7 2.0 Not Available [facility] (Lab) [address] [place], [address], 06/20/2022 14:15:24 06/20/20 22 06/20/2022 CBC/C OMPLE TE BLD COUNT W/DIF F lymphocytes 30.6 % 16.0-4 7.0 Not Available [facility] (Lab) [address] [place], [address], 06/20/2022 14:15:24 06/20/20 22 06/20/2022 CBC/C OMPLE TE BLD COUNT W/DIF F monocytes 5.2 % 5.0-12 .0 Not Available [facility] (Lab) [address] [place], [address], 06/20/2022 14:15:24 06/20/20 22 06/20/2022 CBC/C OMPLE TE BLD COUNT W/DIF F eosinophils 0.9 % 1.0-7. 0 low Not Available [facility] (Lab) [address] [place], [address], 06/20/2022 14:15:24 06/20/20 22 06/20/2022 CBC/C OMPLE TE BLD COUNT W/DIF F basophils 0.1 % 0.0-2. 0 Not Available [facility] (Lab) [address] [place], [address], 06/20/2022 14:15:24 06/20/20 22 06/20/2022 CBC/C OMPLE TE BLD COUNT W/DIF F immature granulocytes 0.4 % 0.00-0 .50 Not Available [facility] (Lab) [address] [place], [address], 06/20/2022 14:15:24 06/20/20 22 06/20/2022 CBC/C OMPLE TE BLD COUNT W/DIF F neutrophils, absolute count 6.59 x10'3 /uL 1.5-8. 0 Not Available [facility] (Lab) [address] [place], [address], 06/20/2022 14:15:24 06/20/20 22 06/20/2022 CBC/C OMPLE TE BLD COUNT W/DIF F lymphocytes, absolute count 3.21 x10'3 /uL 1.07-3 .43 Not Available [facility] (Lab) [address] [place], [address], 06/20/2022 14:15:24 06/20/20 22 06/20/2022 CBC/C OMPLE TE BLD COUNT W/DIF F monocytes, absolute count 0.55 x10'3 /uL 0.29-0 .99 Not Available [facility] (Lab) [address] [place], [address], 06/20/2022 14:15:24 06/20/20 22 06/20/2022 CBC/C OMPLE TE BLD COUNT W/DIF F eosinophils, absolute count 0.09 x10'3 /uL 0.02-0 .53 Not Available [facility] (Lab) [address] [facility] [place], [address], 06/20/2022 14:15:24 06/20/20 22 06/20/2022 CBC/C OMPLE TE BLD COUNT W/DIF F basophils, absolute count 0.01 x10'3 /uL 0.01-0 .08 Not Available [facility] (Lab) [address] [place], [address], 06/20/2022 14:15:24 06/20/20 22 06/20/2022 CBC/C OMPLE TE BLD COUNT W/DIF F immature granulocytes ,absolute 0.04 x10'3 /uL 0.00-0 .05 Not Available [facility] (Lab) [address] [place], [address], 06/20/2022 14:15:24 06/20/20 22 06/20/2022 CBC/C OMPLE TE BLD COUNT W/DIF F nucleated red blood cells 0.0 % -0 Not Available [facility] (Lab) [address] [place], [address], 06/20/2022 14:15:24 06/20/20 22 06/20/2022 CBC/C OMPLE TE BLD COUNT W/DIF F NRBC# 0.00 x10'3 /uL Not Available [facility] (Lab) [address] [place], [address], 06/20/2022 14:15:24 04/27/20 23 04/27/2023 CBC/C OMPLE TE BLD COUNT W/DIF F white blood cells 7.7 x10'3 /uL 4.2-10 .8 Not Available [facility] (Lab) [address] [place], [address], 04/27/2023 12:30:27 04/27/20 23 04/27/2023 CBC/C OMPLE TE BLD COUNT W/DIF F red blood cells 4.50 x10'6 /uL 3.80-5 .20 Not Available [facility] (Lab) [address] [place], [address], 04/27/2023 12:30:27 04/27/20 23 04/27/2023 CBC/C OMPLE TE BLD COUNT W/DIF F hemoglobin 12.1 g/dL 12.0-1 5.6 Not Available [facility] (Lab) [address] [place], [address], 04/27/2023 12:30:27 04/27/20 23 04/27/2023 CBC/C OMPLE TE BLD COUNT W/DIF F hematocrit 37.9 % 35.7-4 5.7 Not Available [facility] (Lab) [address] [facility] [place], [address], 04/27/2023 12:30:27 04/27/20 23 04/27/2023 CBC/C OMPLE TE BLD COUNT W/DIF F mean red cell volume 84.2 fL 82.0-9 9.0 Not Available [facility] (Lab) [address] [place], [address], 04/27/2023 12:30:27 04/27/20 23 04/27/2023 CBC/C OMPLE TE BLD COUNT W/DIF F mean red cell hemoglobin 26.9 pg 27.0-3 3.0 low Not Available [facility] (Lab) [address] [place], [address], 04/27/2023 12:30:27 04/27/20 23 04/27/2023 CBC/C OMPLE TE BLD COUNT W/DIF F mean RBC HGB concentratio n 31.9 g/dL 31.0-3 6.0 Not Available [facility] (Lab) [address] [place], [address], 04/27/2023 12:30:27 04/27/20 23 04/27/2023 CBC/C OMPLE TE BLD COUNT W/DIF F red cell distribution width 13.3 % 11.8-1 5.5 Not Available [facility] (Lab) [address] [place], [address], 04/27/2023 12:30:27 04/27/20 23 04/27/2023 CBC/C OMPLE TE BLD COUNT W/DIF F platelets 415 x10'3 /uL 150-40 0 high Not Available [facility] (Lab) [address] [place], [address], 04/27/2023 12:30:27 04/27/20 23 04/27/2023 CBC/C OMPLE TE BLD COUNT W/DIF F mean platelet volume 9.8 fL 9.0-12 .4 Not Available [facility] (Lab) [address] [place], [address], 04/27/2023 12:30:27 04/27/20 23 04/27/2023 CBC/C OMPLE TE BLD COUNT W/DIF F neutrophils 51.2 % 39.0-7 2.0 Not Available [facility] (Lab) [address] [place], [address], 04/27/2023 12:30:27 04/27/20 23 04/27/2023 CBC/C OMPLE TE BLD COUNT W/DIF F lymphocytes 40.0 % 16.0-4 7.0 Not Available [facility] (Lab) [address] [place], [address], 04/27/2023 12:30:27 04/27/20 23 04/27/2023 CBC/C OMPLE TE BLD COUNT W/DIF F monocytes 5.4 % 5.0-12 .0 Not Available [facility] (Lab) [address] [place], [address], 04/27/2023 12:30:27 04/27/20 23 04/27/2023 CBC/C OMPLE TE BLD COUNT W/DIF F eosinophils 2.7 % 1.0-7. 0 Not Available [facility] (Lab) [address] [place], [address], 04/27/2023 12:30:27 04/27/20 23 04/27/2023 CBC/C OMPLE TE BLD COUNT W/DIF F basophils 0.3 % 0.0-2. 0 Not Available [facility] (Lab) [address] [place], [address], 04/27/2023 12:30:27 04/27/20 23 04/27/2023 CBC/C OMPLE TE BLD COUNT W/DIF F immature granulocytes 0.4 % 0.00-0 .50 Not Available [facility] (Lab) [address] [place], [address], 04/27/2023 12:30:27 04/27/20 23 04/27/2023 CBC/C OMPLE TE BLD COUNT W/DIF F neutrophils, absolute count 3.95 x10'3 /uL 1.5-8. 0 Not Available [facility] (Lab) [address] [place], [address], 04/27/2023 12:30:27 04/27/20 23 04/27/2023 CBC/C OMPLE TE BLD COUNT W/DIF F lymphocytes, absolute count 3.09 x10'3 /uL 1.07-3 .43 Not Available [facility] (Lab) [address] [place], [address], 04/27/2023 12:30:27 04/27/20 23 04/27/2023 CBC/C OMPLE TE BLD COUNT W/DIF F monocytes, absolute count 0.42 x10'3 /uL 0.29-0 .99 Not Available [facility] (Lab) [address] [place], [address], 04/27/2023 12:30:27 04/27/20 23 04/27/2023 CBC/C OMPLE TE BLD COUNT W/DIF F eosinophils, absolute count 0.21 x10'3 /uL 0.02-0 .53 Not Available [facility] (Lab) [address] [place], [address], 04/27/2023 12:30:27 04/27/20 23 04/27/2023 CBC/C OMPLE TE BLD COUNT W/DIF F basophils, absolute count 0.02 x10'3 /uL 0.01-0 .08 Not Available [facility] (Lab) [address] [facility] [place], [address], 04/27/2023 12:30:27 04/27/20 23 04/27/2023 CBC/C OMPLE TE BLD COUNT W/DIF F immature granulocytes ,absolute 0.03 x10'3 /uL 0.00-0 .05 Not Available [facility] (Lab) [address] [place], [address], 04/27/2023 12:30:27 04/27/20 23 04/27/2023 CBC/C OMPLE TE BLD COUNT W/DIF F nucleated red blood cells 0.0 % -0 Not Available [facility] (Lab) [address] [place], [address], 04/27/2023 12:30:27 04/27/20 23 04/27/2023 CBC/C OMPLE TE BLD COUNT W/DIF F NRBC# 0.00 x10'3 /uL Not Available [facility] (Lab) [address] [place], [address], 04/27/2023 12:30:27 04/27/20 23 04/27/2023 MICRO ALBUM N RNDM W/CRE AT RATIO ur creat 111.94 mg/dL REFER ENCE RANGE NOT ESTAB LISHE D FOR RANDO M URINE CREAT ININE Not Available [facility] (Lab) [address] [place], [address], 04/27/2023 12:44:25 04/27/20 23 04/27/2023 MICRO ALBUM N RNDM W/CRE AT RATIO microalbumin , urine 25.2 mg/L 0.0-16 .6 high Not Available [facility] (Lab) [address] [place], [address], 04/27/2023 12:44:25 04/27/20 23 04/27/2023 MICRO ALBUM N RNDM W/CRE AT RATIO microalbumin /creatinine ratio 23 mcg/m g 0-29 [facility] N DEFIN ES ABNOR MALIT IES IN ALBUM IN EXCRE TION FOLLO WS: CATEG ORY RESUL T (MCG/ MG CREAT ININE ) ALTA L <30 MICRO ALBUM INURI A 30-29 9 [facility] ALBUM INURI A > OR = 300 THE ADA RECOM MENDS THAT 2 OF 2 SPECI MENS COLLE CTED WITHI N A 3- TO 6-MON TH PERIO D BE ABNOR MAL BEFOR E CONSI MICHAEL G A PATIE NT TO HAVE CROSS ED ONE OF THESE DIAGN OSTIC THRES HOLDS . REFER ENCE: DIABE TING CARE, VOL. 26: [id number], JANUA RY 2002 Not Available [facility] (Lab) [address] [place], [address], 04/27/2023 12:44:25 04/27/20 23 04/27/2023 COMPR EHENS NANCY METAB OLIC PANEL sodium 140 mmol/ L 137-14 5 Not Available [facility] (Lab) [address] [place], [address], 04/27/2023 12:47:42 04/27/20 23 04/27/2023 COMPR EHENS NANCY METAB OLIC PANEL potassium 4.0 mmol/ L 3.5-5. 1 Not Available [facility] (Lab) [address] [place], [address], 04/27/2023 12:47:42 04/27/20 23 04/27/2023 COMPR EHENS NANCY METAB OLIC PANEL chloride 102 mmol/ L 98-107 Not Available [facility] (Lab) [address] [place], [address], 04/27/2023 12:47:42 04/27/20 23 04/27/2023 COMPR EHENS NANCY METAB OLIC PANEL carbon dioxide 26 mmol/ L 22-30 Not Available [facility] (Lab) [address] [place], [address], 04/27/2023 12:47:42 04/27/20 23 04/27/2023 COMPR EHENS NANCY METAB OLIC PANEL anion gap 16.0 mmol/ L 14-22 Not Available [facility] (Lab) [address] [place], [address], 04/27/2023 12:47:42 04/27/20 23 04/27/2023 COMPR EHENS NANCY METAB OLIC PANEL glucose 108 mg/dL 70-99 high Not Available [facility] (Lab) [address] [place], [address], 04/27/2023 12:47:42 04/27/20 23 04/27/2023 COMPR EHENS NANCY METAB OLIC PANEL BUN 13 mg/dL 8-19 Not Available [facility] (Lab) [address] [place], [address], 04/27/2023 12:47:42 04/27/20 23 04/27/2023 COMPR EHENS NANCY METAB OLIC PANEL creatinine 0.44 mg/dL 0.66-1 .25 low Not Available [facility] (Lab) [address] [place], [address], 04/27/2023 12:47:42 04/27/20 23 04/27/2023 COMPR EHENS NANCY METAB OLIC PANEL GFR >60 Refer ence Range : [place] ge GFR Healt hy Adult : >60 mL/mi n/1.7 3 m2 Chron ic Kidne y Disea se: 15-60 mL/mi n/1.7 3 m2 Kidne y Failu re: <15/m L/min /1.73 m2 www.n iddk. nih.g ov The MDRD study equat ion has not been valid ated in child jericho <18 years of age; pregn ant women ; the elder ly >85 years of age; or in some racia l or ethni c subgr oups, such as Hispa nics. Outsi de the valid ated last eters , estim ated GFR is less accur ate, requi ring clini shubham judgm ent on a case- by-ca se basis . Clini shubham inter preta tion for other races and ages must be made by the clini pranav. The MDRD study equat ion has not been valid ated for the evalu ation of serum creat inine relat ed to nutri shellie l statu s or medic ation usage . For perso ns <18 years of age, a pedia tric GFR calcu lator is avail able on the [facility] websi te: https :[email or web address] corona.thalia [email or web address] rg/pr ofess ional s/kdo qi/gf r_cal culat or Not Available [facility] (Lab) [address] [place], [address], 04/27/2023 12:47:42 04/27/2004/27/2023 COMPR EHENS NANCY METAB OLIC PANEL alkaline phosphatase 109 U/L 38-126 Not Available [facility] (Lab) [address] [place], [address], 04/27/2023 12:47:42 04/27/20 23 04/27/2023 COMPR EHENS NANCY METAB OLIC PANEL alanine aminotransfe rase 25 U/L 0-35 Not Available [facility] (Lab) [address] [facility] [place], [address], 04/27/2023 12:47:42 04/27/20 23 04/27/2023 COMPR EHENS NANCY METAB OLIC PANEL aspartate aminotransfe rase 20 U/L 15-37 Not Available [facility] (Lab) [address] [facility] [place], [address], 04/27/2023 12:47:42 04/27/20 23 04/27/2023 COMPR EHENS NANCY METAB OLIC PANEL bilirubin, total 0.30 mg/dL 0.20-1 .30 Not Available [facility] (Lab) [address] [place], [address], 04/27/2023 12:47:42 04/27/20 23 04/27/2023 COMPR EHENS NANCY METAB OLIC PANEL calcium 9.3 mg/dL 8.4-10 .2 Not Available [facility] (Lab) [address] [place], [address], 04/27/2023 12:47:42 04/27/20 23 04/27/2023 COMPR EHENS NANCY METAB OLIC PANEL total protein 7.7 g/dL 6.3-8. 2 Not Available [facility] (Lab) [address] [place], [address], 04/27/2023 12:47:42 04/27/20 23 04/27/2023 COMPR EHENS NANCY METAB OLIC PANEL albumin 4.2 g/dL 3.4-5. 0 Not Available [facility] (Lab) [address] [place], [address], 04/27/2023 12:47:42 04/27/20 23 04/27/2023 COMPR EHENS NANCY METAB OLIC PANEL globulin 3.5 g/dL 2.6-4. 2 Not Available [facility] (Lab) [address] [place], [address], 04/27/2023 12:47:42 04/27/20 23 04/27/2023 COMPR EHENS NANCY METAB OLIC PANEL A/G ratio 1.2 ratio 1.0-2. 0 Not Available [facility] (Lab) [address] [place], [address], 04/27/2023 12:47:42 04/27/20 23 04/27/2023 LIPID PANEL cholesterol 224 mg/dL 140-19 9 high NIH JARVIS NSUS RECOM MENDA TION FOR SALINAS STERO L: ADULT CHILD LOW RISK: <200 <170 BORDE RLINE : <200- 239 ----- HIGH RISK: >240 >200 Not Available [facility] (Lab) [address] [place], [address], 04/27/2023 12:47:46 04/27/20 23 04/27/2023 LIPID PANEL triglyceride s 172 mg/dL 0-150 high NIH JARVIS NSUS REPOR T RECOM MENDA TION FOR TRIGL YCERI SCOTT: ADULT CHILD LOW RISK: <150 ----- BODER LINE: 150-1 99 ----- HIGH RISK: >200 ----- Not Available [facility] (Lab) [address] [place], [address], 04/27/2023 12:47:46 04/27/20 23 04/27/2023 LIPID PANEL HDL cholesterol 62 mg/dL 40- Not Available [facility] (Lab) [address] [place], [address], 04/27/2023 12:47:46 04/27/20 23 04/27/2023 LIPID PANEL LDL cholesterol, calculated 128 mg/dL 0-130 NIH JARVIS NSUS REPOR T RECOM MENDA TIONS FOR LDL: ADULT CHILD LOW RISK <130 <110 (OPTI MAL LDL) <100 ----- BORDE RLINE : 130-1 59 ----- HIGH RISK: >160 >130 A TRIGL YCERI DE RESUL T >400 INVAL IDATE S THE CALCU LATIO N FOR LDL FRACT IONAT ION - THE LDL RESUL T WILL NOT BE REPOR LUCÍA. Not Available [facility] (Lab) [address] [place], [address], 04/27/2023 12:47:46 04/27/2004/27/2023 T4 FREE free T4 1.10 NG/dL 0.78-2 .19 Not Available [facility] (Lab) [address] [place], [address], 04/27/2023 12:47:52 04/27/2004/27/2023 TSH thyroid-stim ulating hormone 2.240 uIU/m L 0.465- 4.680 Not Available [facility] (Lab) [address] [place], [address], 04/27/2023 12:59:04 04/27/2004/27/2023 VITAM IN D 25-HY DROXY vd25oh 28.7 NG/mL 30-100 low Vitam in D Statu s: Defic ient: <20 ng/mL Insuf ficie nt: 20-29 ng/mL Suffi cient : 30-10 0 ng/mL Not Available [facility] (Lab) [address] [place], [address], 04/27/2023 14:51:24 04/27/2004/27/2023 HEMOG LOBIN A1C HA1C 7.3 % 4.0-6. 0 high Diabe ting Scree alexsandra Crite johnny: <5.7% Consi stent with absen ce of diabe ting 5.7-6 .4% Consi stent with incre ased risk for diabe ting (pred iabet es) >OR=6 .5% Consi stent with diabe ting REFER ENCE: Diabe ting Care 2016, 39(Velasquez ppl.1 ):s13 -s22 Not Available [facility] (Lab) [address] [place], [address], 04/27/2023 15:38:36 04/27/20 23 04/27/2023 VITAM IN B12 (IRASEMA MICHAEL ) vb12 >1000 pg/mL 239-93 1 high Not Available [facility] (Lab) [address] [place], [address], 04/27/2023 15:40:40 04/27/20 23 04/27/2023 FOLAT E, SERUM /PLAS MA folate >20.0 NG/mL 2.76-2 0.0 Not Available [facility] (Lab) [address] [place], [address], 04/27/2023 15:40:48 04/27/20 23 04/28/2023 DHEA- SULFA TE DHEA-sulfate 114.0 ug/dL 57.3-2 79.2 Perfo rmed at: - [facility] [address] [place] [address] Lab Direc tor: Laron garrison PhD, Phone : [phone] Not Available [facility] (Lab) [address] [place], [address], 04/28/2023 08:17:09 04/27/20 23 04/28/2023 INSUL IN insulin 14.8 uIU/m L 2.6-24 .9 Perfo rmed at: - [facility] [address] [place] [address] Lab Direc tor: Laron garrison PhD, Phone : [phone] Not Available [facility] (Lab) [address] [place], [address], 04/28/2023 11:11:26 04/27/20 23 05/03/2023 TESTO STERO NE, FREE+ TOTAL LC/MS testosterone , total, lc/MS 26.1 NG/dL 10.0-5 5.0 Not Available [facility] (Lab) [address] [place], [address], 05/03/2023 13:11:14 04/27/20 23 05/03/2023 TESTO STERO NE, FREE+ TOTAL LC/MS testosterone , free 0.61 NG/dL 0.10-0 .85 Not Available [facility] (Lab) [address] [place], [address], 05/03/2023 13:11:14 04/27/20 23 05/03/2023 TESTO STERO NE, FREE+ TOTAL LC/MS % free testosterone 2.32 % 0.50-2 .80 Perfo rmed at: - [facility] [address] [place] [address] , [place] [address] Lab Direc tor: Debby price MD, Phone : [phone] Not Available [facility] (Lab) [address] [place], [address], 05/03/2023 13:11:14 04/21/20 22 04/21/2022 XR, sacru m + coccy x, 2 or more view [facility] [address] [place] [address] Patien t Name: ELOY CONCEPCION LOPEZ Access ion #: [id number] Sex: F : 1984 7 Locati on: RAD Attend ing Physic jules: LIZZ MATHTEWS Orderi Physic jules: LIZZ MATTHEWS Exam Date: 04/21/20 9:11 AM Exam Name: XR SACRUM AND COCCYX Admitt ing Diagno sis(es ): RADIOL OGY REPORT - FINAL EXAM: XR SACRUM AND COCCYX HISTOR Y: SACROC OCCYGE AL DISORD ERS COMPAR JUANJO: None. TECHNI QUE: Three views of the sacrum and coccyx were perfor med. FINDIN GS: Dimini shed detail , no defini te fractu re or destru ctive proces s. The sacroi liac joints are normal . IMPRES SKINNY: No eviden ce of fractu re or acute osseou s abnorm ality about the sacrum or coccyx . If sympto ms tomer t, CT or MRI could be perfor med. Page 1 of 2 [facility] ortega Name: CONCEPCION MORALES Access ion #: [id number] Sex: F : 1984 7 Exam Date: 04/21/20 9:11 AM Exam Name: XR SACRUM AND COCCYX Admitt ing Diagno sis(es ): Create d and electr onical ly signed by: Reynaldo rodriguez MD Signed Date: 04/21/20 9:29 AM (CT) Dictat ed by: Reynaldo rodriguez MD (CT) (CT) Page 2 of 2 [id number] [facility] (Imaging) [address] [place], [address], 12/20/2022 17:02:08 11/22/19 23 11/22/2022 , echoc ardio gram No observ ation record ed. [id number] [place] [address], [address], 12/20/2022 17:02:08 01/19/20 23 01/18/2023 XR, chest , 2 view No observ ation record ed. [email or web address] [address] [place] [address], [address], 01/22/2023 16:49:16 Result Notes Documentation Provider Name and Address Organization Details Recorded Time Xr, Sacrum + Coccyx, 2 Or More View : [facility] [address] [place] [address] Patient Name: EVERARDOKAILASHWALLACE CONCEPCION Sex: F : 1985 Location: [facility] Attending Physician: LIZZ MATTHEWS Ordering Physician: LIZZ MATTHEWS Exam Date: 04/21/2022 9:11 AM Exam Name: XR SACRUM AND COCCYX Admitting Diagnosis(es): RADIOLOGY REPORT - FINAL EXAM: XR SACRUM AND COCCYX HISTORY: SACROCOCCYGEAL DISORDERS COMPARISON: None. TECHNIQUE: Three views of the sacrum and coccyx were performed. FINDINGS: Diminished detail, no definite fracture or destructive process. The sacroiliac joints are normal. IMPRESSION: No evidence of fracture or acute osseous abnormality about the sacrum or coccyx. If symptoms persist, CT or MRI could be performed. Page 1 of 2 [facility] Patient Name: CONCEPCION VALDES Sex: F : 1985 Exam Date: 04/21/2022 9:11 AM Exam Name: XR SACRUM AND COCCYX Admitting Diagnosis(es): Created and electronically signed by: Reynaldo Funes MD Signed Date: 04/21/2022 9:29 AM (CT) Dictated by: Reynaldo Funes MD (CT) (CT) Page 2 of 2 Not Available [facility] 12/20/2022 17:02:09 Problems Name Problem SNOMED Code Status Onset Date Resolution Date Notes Provider Name and Address Organization Details Recorded Time Type 2 diabetes mellitus without complication 503560798 Active 2021 Not Available [facility] 3 23:22:50 Ingrowing toenail 590985651 Active Not Available [facility] 3 23:22:50 Type 2 diabetes mellitus 67434594 Active Not Available [facility] 3 23:22:51 Well controlled type 2 diabetes mellitus 070748863 Active 2021 Not Available [facility] 3 23:22:51 Vitamin B12 deficiency (non anemic) 60551008 Active 2022 Not Available [facility] 3 23:22:51 Vitamin D deficiency 08354220 Active 2022 Not Available [facility] 3 23:22:50 Obesity 963082144 Active 2022 Not Available [facility] 3 23:22:50 Polycystic ovary syndrome 700514364 Active 2022 Not Available [facility] 3 23:22:50 Hyperlipidemi a 10967208 Active 2022 Not Available [facility] 3 23:22:51 Uncontrolled type 2 diabetes mellitus 433817222 Active 2022 Elvia zelaya, [employer] 3 10:15:08 Multiple skin tags 811864806 Active 2022 Elvia zelaya, [facility] 3 11:02:06 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 Procedures Surgical History Date Name Laterality Status Provider Name and Address Organization Details Recorded Time 09/05/20 21 bariatric operative procedure completed Not Available [facility] 12/20/2022 16:59:53 09/05/20 21 Gastric bypass for obesity completed Not Available [facility] 12/20/2022 16:59:53 delivery completed Not Available [facility] 12/20/2022 16:59:53 delivery completed Not Available [facility] 12/20/2022 16:59:53 Cholecystectomy completed Not Available [facility] 12/20/2022 16:59:53 endoscopic biopsy completed Not Available [facility] 12/20/2022 16:59:53 Imaging Results None recorded. Procedure Notes None recorded. Medical Equipment None Reported. Allergies Allergen ID Allergen Name Allergen Category Reaction Reaction Severity Criticality Documentation Date Start Date Code Code System Note Provider Name and Address Organization Details Recorded Time 64883 shellfish derived food,medi cation Not available Not available Not available 12/20/2022 47755 UNK Not Available [facility] 3 17:02:02 Medications Name Sig Start Date Stop Date Status Note LastModified by Organization Details LastModified Time metformin 500 mg tablet Take 1 tablet twice a day by oral route. 03/24 completed Not Available Not Available Not Available azelastine 0.05 % eye drops INSTILL 1 DROP INTO BOTH EYES NEEDED active Not Available Not Available No t Available prednisone 10 mg tablet Take 6 PO in AM x 2 days, 5 x 2 days, 4 x 2 days, 3 x 2 days, 2 x 2 days, 1 x 2 days 04/04 completed Not Available Not Available Not Available albuterol sulfate 2.5 mg/3 mL (0.083 %) solution for nebulizatio n USE 1 VIAL VIA NEBULIZER EVERY 4 HOURS NEEDED active Not Available Not Available No t Available tizanidine 4 mg tablet TAKE 1 TABLET BY MOUTH EVERY 6 HOURS NEEDED 04/12 completed Not Available Not Available Not Available fluconazole 150 mg tablet TAKE 1 TABLET BY MOUTH ONCE A SINGLE DOSE 04/12 completed Not Available Not Available Not Available valacyclovi r 1 gram tablet TAKE 1 TABLET BY MOUTH EVERY DAY active Not Available Not Available No t Available enalapril maleate 20 mg tablet Take 1 tablet every day by oral route. 03/24 completed Not Available Not Available Not Available sucralfate 1 gram tablet TAKE 1 TABLET BY MOUTH 4 TIMES DAILY - BEFORE MEALS & NIGHTLY active Not Available Not Available No t Available polysacchar campbell iron complex 150 mg iron capsule TAKE 1 CAPSULE BY MOUTH EVERY DAY active Not Available Not Available No t Available sertraline 100 mg tablet TAKE 1 TABLET BY MOUTH EVERY DAY active Not Available Not Available No t Available Zithromax Z-Juan M 250 mg tablet Take 1 dose pk by oral route. 08/19 completed Not Available Not Available Not Available phentermine 15 mg capsule TAKE 1 CAPSULE BY MOUTH EVERY MORNING 04/21 completed Not Available Not Available Not Available nifedipine ER 30 mg tablet,exte nded release TAKE 1 TABLET BY MOUTH DAILY active Not Available Not Available No t Available levofloxaci n 250 mg tablet Take 1 tablet every day by oral route for 5 days. active Not Available Not Available No t Available omeprazole 40 mg capsule,del ayed release TAKE 1 (ONE) CAPSULE BY MOUTH 2 TIMES DAILY, BEFORE BREAKFAST AND SUPPER 04/12 completed Not Available Not Available Not Available aspirin 81 mg tablet,kassandra yed release TAKE 2 TABLETS BY MOUTH DAILY active Not Available Not Available No t Available acetaminoph en 500 mg tablet 09/29 completed Not Available Not Available Not Available triamcinolo ne acetonide 0.1 % topical cream APPLY A THIN LAYER TO THE AFFECTED AREA(S) BY TOPICAL ROUTE 2 TIMES PER DAY NEEDED 04/12 completed Not Available Not Available Not Available spironolact one 25 mg tablet active Not Available Not Available Not Available phentermine 30 mg capsule Take 1 capsule every day by oral route in the morning for 90 days. active Not Available Not Available No t Available oxycodone-a cetaminophe n 5 mg-325 mg tablet TAKE 1 TABLET BY MOUTH EVERY 6 HOURS NEEDED FOR PAIN. 04/12 completed Not Available Not Available Not Available magnesium oxide 400 mg (241.3 mg magnesium) tablet TAKE 1 TABLET BY MOUTH EVERY DAY active Not Available Not Available No t Available pantoprazol e 40 mg tablet,kassandra yed release TAKE 1 TABLET BY MOUTH TWICE A DAY active Not Available Not Available No t Available venlafaxine 37.5 mg tablet TAKE 1 TABLET BY MOUTH ONCE DAILY active Not Available Not Available No t Available cyanocobala min (vit B-12) 1,000 mcg/mL injection solution INJECT 1 ML SUBCUTANE OUSLY ONCE WEEKLY IN THE MORNING active Not Available Not Available No t Available oseltamivir 75 mg capsule TAKE 1 CAPSULE BY MOUTH TWICE A DAY FOR 5 DAYS 04/12 completed Not Available Not Available Not Available metformin 1,000 mg tablet Take 1 tablet twice a day by oral route. 03/24 completed Not Available Not Available Not Available Cipro 500 mg tablet Take 1 tablet twice a day by oral route. 12/26 completed Not Available Not Available Not Available nystatin 100,000 unit/gram topical cream APPLY TO AFFECTED AREA TWICE A DAY active Not Available Not Available No t Available losartan 25 mg tablet TAKE 1 TABLET BY MOUTH EVERY DAY 04/12 completed Not Available Not Available Not Available hydrochloro thiazide 12.5 mg capsule TAKE 1 CAPSULE BY MOUTH EVERY DAY 06/20 completed Not Available Not Available Not Available docusate sodium 100 mg capsule TAKE 1 CAPSULE BY MOUTH TWICE A DAY FOR CONSTIPAT ION active Not Available Not Available No t Available montelukast 10 mg tablet TAKE 1 TABLET BY MOUTH EVERY DAY 04/12 completed Not Available Not Available Not Available hydroxyzine HCl 25 mg tablet TAKE 1 TABLET BY MOUTH THREE TIMES A DAY NEEDED FOR ANXIETY active Not Available Not Available No t Available gabapentin 100 mg capsule 12/01 completed Not Available Not Available Not Available ergocalcife rol (vitamin D2) 1,250 mcg (50,000 unit) capsule TAKE 1 CAPSULE BY MOUTH ONE TIME PER WEEK active Not Available Not Available No t Available scopolamine 1 mg over 3 days transdermal patch 09/29 completed Not Available Not Available Not Available methylpredn isolone 4 mg tablets in a dose pack Take 1 dose pk by oral route. 06/20 completed Not Available Not Available Not Available ondansetron 4 mg disintegrat ing tablet 12/26 completed Not Available Not Available Not Available metformin ER 500 mg tablet,exte nded release 24 hr TAKE 1 TABLET BY MOUTH EVERY DAY AT DINNER FOR 90 DAYS 04/12 completed Not Available Not Available Not Available sertraline 50 mg tablet TAKE 1 TABLET BY MOUTH EVERY DAY 04/12 completed Not Available Not Available Not Available spironolact one 50 mg tablet TAKE 2 TABLETS BY MOUTH ONCE EVERY DAY IN THE MORNING 04/12 completed Not Available Not Available Not Available amoxicillin 875 mg-potassiu m clavulanate 125 mg tablet 04/12 completed Not Available Not Available Not Available oxycodone 5 mg tablet 09/29 completed Not Available Not Available Not Available hydroxyzine pamoate 25 mg capsule TAKE 1 CAPSULE BY MOUTH TWICE A DAY NEEDED active Not Available Not Available No t Available Kariva (28) 0.15 mg-0.02 mg (21)/0.01 mg (5) tablet TAKE 1 TABLET BY MOUTH EVERY DAY IN THE MORNING active Not Available Not Available No t Available insulin lispro (U-100) 100 unit/mL subcutaneou s pen PLEASE SEE ATTACHED FOR DETAILED DIRECTION S active Not Available Not Available No t Available Allergy Relief (loratadine ) 10 mg tablet TAKE 1 TABLET BY MOUTH EVERY DAY active Not Available Not Available No t Available rosuvastati n 10 mg tablet TAKE 1 TABLET BY MOUTH EVERY DAY active Not Available Not Available No t Available nitrofurant oin monohydrate /macrocryst als 100 mg capsule Take 1 capsule every 12 hours by oral route for 5 days. 12/26 completed Not Available Not Available Not Available milk thistle 06/03 completed Not Available Not Available Not Available amoxicillin 07/22 completed Not Available Not Available Not Available clarithromy micheal 06/03 completed Not Available Not Available Not Available Multiple Vitamin, Womens 2020 active Not Available Not Available Not Avai lable Januvia 100 mg tablet Take 1 tablet every day by oral route. 04/04 completed Not Available Not Available Not Available Symbicort 160 mcg-4.5 mcg/actuati on HFA aerosol inhaler Inhale 2 puffs twice a day by inhalatio n route. active Not Available Not Available No t Available Lantus Solostar U-100 Insulin 100 unit/mL (3 mL) subcutaneou s pen PLEASE SEE ATTACHED FOR DETAILED DIRECTION S active Not Available Not Available No t Available Gavilax 17 gram/dose oral powder 09/29 completed Not Available Not Available Not Available OneTouch Verio test strips USE TO TEST 4 TIMES A DAY active Not Available Not Available No t Available BD Insulin Syringe Ultra-Fine 1 mL 31 gauge x 5/16 USE TO INJECT B12 ONCE WEEKLY active Not Available Not Available No t Available Victoza 3-Juan M 0.6 mg/0.1 mL (18 mg/3 mL) subcutaneou s pen injector INJECT 1.8MG SC ONCE DAILY DX E11.65 09/29 completed Not Available Not Available Not Available Xulane 150 mcg-35 mcg/24 hr transdermal patch APPLY 1 PATCH WEEKLY 06/20 completed Not Available Not Available Not Available Levemir FlexTouch U-100 Insulin 100 unit/mL (3 mL) subcutaneou s pen INJECT 12-50 UNITS UNDER THE SKIN DIRECTED. START WITH 12 UNITS IN MORNING. INCREASE DIRECTED. active Not Available Not Available No t Available Jardiance 25 mg tablet active Not Available Not Available Not Available Trulicity 1.5 mg/0.5 mL subcutaneou s pen injector INJECT 1.5MG UNDER THE SKIN ONCE WEEKLY AT DINNER FOR 90 DAYS active Not Available Not Available No t Available Trulicity 0.75 mg/0.5 mL subcutaneou s pen injector INJECT THE CONTENTS OF 1 PEN UNDER THE SKIN AT DINNER ONCE EVERY 7 DAYS active Not Available Not Available No t Available Nighttime Sleep-Aid (doxylamine ) 25 mg tablet TAKE 1 TABLET BY MOUTH EVERYDAY AT BEDTIME active Not Available Not Available No t Available TRUEplus Pen Needle 31 gauge x 5/16 active Not Available Not Available Not Available TRUEplus Pen Needle 31 gauge x 3/16 USE TO INJECT 4 TIMES A DAY active Not Available Not Available No t Available TRUEplus Pen Needle 32 gauge x 5/32 USE TO INJECT 5 TIMES DAILY active Not Available Not Available No t Available Dexcom G6 Sensor device USE DIRECTED CHANGE ONCE EVERY 10 DAYS active Not Available Not Available No t Available Dexcom G6 District Ranger USE DIRECTED. PRIOR AUTH DENIED active Not Available Not Available No t Available Dexcom G6 Transmitter device CHANGE EVERY 90 DAYS DIRECTED active Not Available Not Available No t Available OneTouch Ultra2 Meter active Not Available Not Available Not Available OneTouch Delica Plus Lancet 33 gauge USE 1 TO TEST 4 TIMES DAILY active Not Available Not Available No t Available OneTouch Delica Plus Lancet 30 gauge active Not Available Not Available Not Available Baqsimi 3 mg/actuatio n nasal spray INSTILL 1 SPRAY INTO THE NOSTRILS NEEDED active Not Available Not Available No t Available Se-Faraz 19 29 mg iron-1 mg tablet TAKE 1 TABLET BY MOUTH EVERY DAY active Not Available Not Available No t Available Trulicity 3 mg/0.5 mL subcutaneou s pen injector INJECT THE CONTENTS OF 1 PEN UNDER THE SKIN AT DINNER ONCE WEEKLY 04/12 completed Not Available Not Available Not Available Mounjaro 5 mg/0.5 mL subcutaneou s pen injector INJECT 5MG UNDER THE SKIN ONCE WEEKLY active Not Available Not Available No t Available Mounjaro 2.5 mg/0.5 mL subcutaneou s pen injector active Not Available Not Available Not Available Vitals Date Recorded Systolic And Diastolic Provider Name and Address Organization Details Last Updated DateTime 04/12/2023 138/88 mm[Hg] PRACHI HammondsC [address] [facility], [address], [place], [address], [employer] 04/12/2023 17:21:06 Date Recorded Body height Body mass index (BMI) Body weight Body temperature Heart rate Oxygen saturation Oxygen saturation in Arterial blood by Pulse oximetry Systolic And Diastolic Provider Name and Address Organization Details Last Updated DateTime 3 157.48 cm 42.3 kg/m2 137657. 84 g 97.7 [degF] 98 /min 99 % 99 % 142/98 mm[Hg] Zoë Mcneil CMA [employer] 3 10:59:12 Date Recorded Body mass index (BMI) Body height Oxygen saturation Oxygen saturation in Arterial blood by Pulse oximetry Heart rate Body temperature Body weight Systolic And Diastolic Provider Name and Address Organization Details Last Updated DateTime 2 37.9 kg/m2 157.48 cm 98 % 98 % 118 /min 97.4 [degF] 84908.6 2 g 138/82 mm[Hg] Not Available [facility] 3 17:00:00 Date Recorded Body mass index (BMI) Body height Oxygen saturation Oxygen saturation in Arterial blood by Pulse oximetry Heart rate Body temperature Body weight Systolic And Diastolic Provider Name and Address Organization Details Last Updated DateTime 2 38.8 kg/m2 157.48 cm 98 % 98 % 98 /min 97.2 [degF] 74582.5 8 g 128/74 mm[Hg] Not Available [facility] 3 17:00:00 Date Recorded Body height Body mass index (BMI) Body weight Heart rate Body temperature Respiratory rate Oxygen saturation Oxygen saturation in Arterial blood by Pulse oximetry Systolic And Diastolic Provider Name and Address Organization Details Last Updated DateTime 3 157.48 cm 42.3 kg/m2 922949. 84 g 84 /min 97.6 [degF] 14 /min 98 % 98 % 130/82 mm[Hg] Alyse Gerber [employer] [facility] [employer] 3 10:27:54 Date Recorded Body height Body mass index (BMI) Body weight Body temperature Heart rate Respiratory rate Oxygen saturation Oxygen saturation in Arterial blood by Pulse oximetry Systolic And Diastolic Provider Name and Address Organization Details Last Updated DateTime 3 157.48 cm 42.3 kg/m2 226816. 84 g 97.6 [degF] 84 /min 14 /min 98 % 98 % 130/80 mm[Hg] Alyse Gerber CA - [facility] 3 12:31:03 Social History Question Answer Notes LastModified by Organizat ion Details LastModified Time Tobacco Smoking Status Former Smoker Quit in 2013 Not Available [employer] 12/20/2022 16:59:40 Do You Have An Advance Directive? No MIGRATION.38155 32740 Information not available 12/20/2022 What Is Your Level Of Caffeine Consumption? Moderate MIGRATION.10551 29816 Information not available 12/20/2022 How Much Tobacco Do You Chew? None MIGRATION.95265 43335 Information not available 12/20/2022 In The 14 Days Before Symptom Onset, Have You Had Close Contact With A Laboratory-confi rmed COVID-19 While That Case Was Ill? No MIGRATION.80869 52225 Information not available 12/20/2022 In The 14 Days Before Symptom Onset, Have You Had Close Contact With A Person Who Is Under Investigation For COVID-19 While That Person Was Ill? No MIGRATION.74602 71276 Information not available 12/20/2022 What Type Of Diet Are You Following? SPECIFIC MIGRATION.90908 52569 Information not available 12/20/2022 Which Illicit Or Recreational Drugs Have You Used? None MIGRATION.74179 20868 Information not available 12/20/2022 What Is The Highest Grade Or Level Of School You Have Completed Or The Highest Degree You Have Received? [id number] MIGRATION.74094 93238 Information not available 12/20/2022 Have There Been Any Changes To Your Family Or Social Situation? No MIGRATION.73407 90998 Information not available 12/20/2022 What Is The Fluoride Status Of Your Home? Unknown MIGRATION.83457 07937 Information not available 12/20/2022 Are There Any Guns Present In Your Home? No MIGRATION.30704 01247 Information not available 12/20/2022 Where Do You Live? [place]House MIGRATION.85404 65051 Information not available 12/20/2022 Do You Have A Medical Power Of All Around [employer]? No MIGRATION.90265 26441 Information not available 12/20/2022 What Was The Date Of Your Most Recent Tobacco Screening? 06/20/2022 MIGRATION.63303 22956 Information not available 12/20/2022 Do You Have Any Pets? Yes MIGRATION.76337 51913 Information not available 12/20/2022 What Is Your Relationship Status? MIGRATION.05827 22584 Information not available 12/20/2022 Do You Use Your Seat Belt Or Car Seat Routinely? Yes MIGRATION.36794 08339 Information not available 12/20/2022 Do You Have Smoke And Carbon Monoxide Detectors In Your Home? Yes MIGRATION.86253 51378 Information not available 12/20/2022 At What Age Did You Start Smoking Tobacco? 19 MIGRATION.17285 06692 Information not available 12/20/2022 Are You Passively Exposed To Smoke? No MIGRATION.20212 39022 Information not available 12/20/2022 Are There Any Smokers In Your House? No MIGRATION.67631 70731 Information not available 12/20/2022 How Much Tobacco Do You Smoke? 1 PPW MIGRATION.85132 71389 Information not available 12/20/2022 Do You Use Sunscreen Routinely? No MIGRATION.79125 58085 Information not available 12/20/2022 Have You Recently Traveled Abroad? No MIGRATION.89263 49513 Information not available 12/20/2022 Do You Have Any Dietary Restrictions? No MIGRATION.06949 40643 Information not available 12/20/2022 Sex: Female Functional Status Question Answer Note LastModified by [employer] ion Details LastModified Time Do you use any illicit or recreational drugs? No MIGRATION.332818 9549 Information not available 12/20/2022 What is your level of alcohol consumption? Occasional MIGRATION.431887 2961 Information not available 12/20/2022 Do you or have you ever used smokeless tobacco? Never used smokeless tobacco MIGRATION.808665 8372 Information not available 12/20/2022 Do you or have you ever used e-cigarettes or vape? Never used electronic cigarettes MIGRATION.300657 4339 Information not available 12/20/2022 What is your exercise level? Heavy MIGRATION.056351 9608 Information not available 12/20/2022 Mental Status Question Answer Note LastModified by Organizat ion Details LastModified Time Do you feel stressed (tense, restless, nervous, or anxious, or unable to sleep at night)? [id number] MIGRATION.[id number] Information not available 12/20/2022 Family History Relationship Description Onset Age of this Age Resolved Age Notes LastModified by Organization Details LastModified Time Father Diabetes mellitus MIGRATION.221 [id number] Not available 12/20/2022 16:59:53 Father Hypertensive disorder MIGRATION.451 [id number] Not available 12/20/2022 16:59:53 Mother No current problems or disability MIGRATION.308 [id number] Not available 12/20/2022 16:59:53 Mother Renal failure syndrome MIGRATION.035 [id number] Not available 12/20/2022 16:59:53 Son Autistic disorder MIGRATION.063 [id number] Not available 12/20/2022 16:59:54 Notes:All siblings are predi abetic per pt Medical History Condition Response NERVE DISEASE N BLINDNESS N RHEUMATIC FEVER N KIDNEY STONES N BLADDER PROBLEMS N MRSA N OTHER # 1 N POLIO N LUNG DISEASE/DISORDER N RADIATION / CHEMOTHERAPY N COPD N Other # 2 N BLOOD DISEASES N EAR OR HEARING PROBLEMS N MUMPS N DEPRESSION (INCLUDING POST ) Y BOWEL PROBLEMS N STROKE/TIA N ULCERS N BENIGN PROSTATIC HYPERPLASIA N MEASLES N MYOCARDIAL INFARCTION N OBESITY Y GERD/NAUSEA N ANEURYSM N URINARY/BLADDER/KIDNEY PROBLEMS N CORONARY ARTERY DISEASE (CAD) N ADDICTION CONCERNS N Impotence N ENDOMETRIOSIS N USE OF BLOOD THINNERS N SKIN PROBLEMS N GASTROINTESTINAL DISORDER N PERIPHERAL VASCULAR DISEASE N MUSCLE,JOINT OR BONE PROBLEMS N GASTROINTESTINAL BLEEDING N BLOOD CLOTS N ASTHMA Y CATARACTS N ERECTILE DYSFUNCTION N VARICOSITIES N GI PROBLEMS N Low Testosterone N INFERTILITY N AIDS/HIV N CHEMOTHERAPY / RADIATION N LIVER DISEASE N MALE HYPOGONADISM N HYPERTENSION Y Deficiency N TOURETTE'S N ANXIETY DISORDER Y BLOOD TRANSFUSION N ANEMIA/BLOOD DISORDER N CHRONIC EAR INFECTIONS N BRONCHITIS N TUBERCULOSIS N GLAUCOMA N FOOT PROBLEM N DIVERTICULITIS N SLEEP APNEA N CHICKENPOX N INFECTIOUS DISEASE N PROSTATE N HEART ARRHYTHMIA N INSOMNIA Y HIGH CHOLESTEROL / HYPERLIPIDEMIA Y EYE PROBLEMS Y HYPERTHYROIDISM N EDEMA N CHRONIC PAIN SYNDROME N HYPOTHYROIDISM N CAROTID BLOCKAGE N CONSTIPATION N BACK / NECK PROBLEMS Y HAVE YOU BEEN HOSPITALIZED OR SEEN IN [facility] ER IN THE PAST YEAR ? N ATHEROSCLEROSIS N BREAST PROBLEMS N DIALYSIS N ECZEMA N OSTEOPOROSIS N ARTHRITIS N APPENDICITIS N DIABETES, TYPE Y BAD TEETH N ENT N HEARTBURN / REFLUX N AUTISM SPECTRUM DISORDER (ASD) N HEPATITIS / LIVER DISEASE N GOUT N SLEEP DISORDER N ALZHEIMER'S DISEASE N Brain Problems N DEMENTIA N HERPES Y SEIZURES/EPILEPSY N HEADACHES/MIGRAINES Y VASCULAR DISEASE N PACEMAKER N Blood Disorder N DIZZINESS N HEART DISEASE/HEART PROBLEMS N KIDNEY DISEASE N MULTIPLE SCLEROSIS N CANCER: SPECIFY N CARDIAC ARRHYTHMIA N ATRIAL FIBRILLATION N Gall Stones N PULMONARY EMBOLISM N AUTOIMMUNE DISEASE N Gynecological History Statement/Question Response Abnormal Pap Y Flow Heavy Date of LMP 03/11/2021 Dislike of Light during Menstrual Headac he N STIs/STDs Y Date of Last Pap Duration of Flow (days) 5 Current Control Method Patch Age at Menarche 11 How many live births 2 Sexually Active? Y Menses Monthly N Obstetrics History GPAL:G 4 P 0 2 2 2 Type Value Spontaneous 2 Premature 2 Living 2 Total 4 Past Encounters Encounter ID Performer Location Encounter Start Date Encounter Closed Date Diagnosis/Indication Diagnosis SNOMED-CT Code Diagnosis ICD10 Code Diagnosis Note [id number] Gerard bowman MD S_G Internal Med [facility] [address] [facility] [address] [address] 03/25/2021 00:00:00 03/25/2021 15:13:22 [id number] Gerard bowman MD [facility]_G Internal Med [facility] [address] [place], [place] [address]., [address] [address] 04/04/2021 00:00:00 04/04/2021 17:17:16 [id number] Gerard bowman MD [facility]_G Internal Med [facility] [address] [facility] [address] [address] 05/02/2021 00:00:00 05/02/2021 14:32:23 [id number] Davion Martinez MD [facility]_G Internal Med [facility] [address] [place], [place] [address]., [address] [address] 06/03/2021 00:00:00 06/03/2021 15:04:24 [id number] Gerard bowman MD S_G Internal Med [facility] [address] [place], [place] [address]., [address] [address] 07/22/2021 00:00:00 07/22/2021 14:03:01 [id number] Gerard bowman MD S_[facility] Internal Med [address] [place] [address] 08/19/2021 00:00:00 08/20/2021 08:51:16 [id number] MD MARY Armenta_[facility] Internal Med [address] [place] [address] 09/29/2021 00:00:00 09/29/2021 16:35:17 [id number] MD MARY Armenta_[facility] Internal Med [address] [place] [address] 1 11/03/2021 00:00:00 11/03/2021 18:07:27 [id number] MD REBEKAH Chambers IGRATION_ DEFAULT_1 _1 , 12/01/2021 00:00:00 12/01/2021 17:50:36 [id number] MD MARY Armenta_[facility]G Internal Med [facility] [address] [place] [address] 1 12/26/2021 00:00:00 12/26/2021 15:52:05 [id number] MD MARY Armenta_[facility]G Internal Med [facility] [address] [place] [address] 1 01/26/2022 00:00:00 01/26/2022 12:33:30 [id number] MD REBEKAH Chambers IGRATION_ DEFAULT_1 _1 , 03/02/2022 00:00:00 03/02/2022 15:44:33 [id number] MD MARY Armenta_GMG Internal Med [facility] [address] [place] [address] 1 04/21/2022 00:00:00 04/21/2022 09:57:20 [id number] MD MARY Armenta_GMG Internal Med [facility] [address] [place] [address] 1 06/20/2022 00:00:00 06/20/2022 14:32:04 [id number] [facility] Internal Med [address], [address] [place] [address] 04/12/2023 10:44:08 04/12/2023 11:24:51 Type 2 diabetes mellitus without complication 032999269 E11.9 not currently on any meds is having hypo episodes- I do think some of this is due to skipping meals due to being busy with the babywe discussed making sure she gets in breakfast, lunch, dinner- start meals with a protein choice, then add fresh veg/fruits , whole grains, aim to keep carbs at around 50g per meal with approx 150g per Deng also want her to add a protein based bedtime snackCheck labsKeep upcoming appt with endo- Dr. Torres Vitamin B1 2 deficiency (non anemic) 18453057 E53.8 not currently on supplement , check labs Vitamin D deficiency 347 50479 E55.9 not currently on supplement , check labs Hyperlipid emia screening 061418779 Z13.220 Obesity 562454211 E66.9 recommend healthy, well balanced meals focus on lean meats, fresh vegetables , fresh fruits, whole grains reduce fast/proce ssed foods or eating out to no more than 1-2 times per week aim to get 30 min of exercise most days of the week- walking is a great choicealso recommend resistance training 2-3 times per week Polycystic ovary syndrome 465218158 E28.2 follows SURG PHYSICIAN ASST/endo Adult [facility] th examination 577689143 Z00.01 Depression screening 171 939579 Z13.31 Past pregn jordon history of gestational hypertension 870640636 Z87.59 is currently off her nifedipine has OB follow up next week [id number] Reid coley MD [facility] General Surgery [address] [place] [address] 08/09/2023 10:20:56 08/22/2023 13:52:30 Multiple skin tags 352511622 L91.8 neck [id number] Reid coley MD 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 Health Concerns Section Related Observation LastModified by Organization Detai ls LastModified Time None Recorded Concern Status LastModified by Organization Details LastModified Time None Recorded Advance Directives Directive N: Payers Insurance Date Sequence Insurance Name Policy Number Policy Sandoval Covered Member ID Sandoval Member ID Guarantor Name 11/29/2023 1 [facility] - DOS ON OR AFTER 21 (MEDICAID REPLACEMENT - HMO) Concepcion Fierro [id number] Concepcion Nannette quintanilla Notes Date Note Type Note Provider Name and Address Organization Details Recorded Time 04/12/2023 text/html Concepcion presents today for follow up, she is also due for her annual wellness exam. She's been lost to follow up for about a year as she as was . She reports her OB had her on nefedipine, she stopped that about a week ago as she was lightheaded. She follows up with OB again next week. Her BP was elevated when she got here today but she had just carried the baby in from the parking lot, on recheck it was better. She is asymptomatic with this today. She reports she was on insulin while , is now off of it. She is still having very labile blood sugars, and she is having hypos. She reports she will get down to 65 or so and become symptomatic. She reports her OB requested she get back in with endo- she has that appt in a few weeks. She reports the lows are worse at night. She is currently not eating a bedtime snack. She's also frequently skipping meals during the day as she is so busy with the baby. She reports baby is growing well (he is here today with her) and she is adjusting to having 3 kids. She denies any struggles with her mood. She is bottlefeeding. Had BTL done at delivery for control. She is due for labs. Lizz Matthews, KSENIA-C [address], [place], [address], [facility] [employer] 04/12/2023 17:27:40 08/09/2023 text/html Patient complain s of skin tags around her neck that have becoming larger and they get caught on her hair and jewelry. Complains of burning occasional bleeding. Reid Olmos MD [address], [facility] [address], [place], [address], [employer] [facility] 08/09/2023 14:28:46 09/20/2023 text/html patient here for excision / destruction skin tags around the neck area Reid Olmos MD [address], [facility] [address], [place], [address], [employer] 09/20/2023 14:29:58 OBGyn Episode No OBEpisode recorded.
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
--- OUTSIDE RECORDS SUMMARY | 2025-05-05 23:09 | XMS_ITS | Data Portability ---
Author Organization [facility] [place] Address [address] [place] [address] Assessment Encounter Date Assessment Date Assessment LastModified by Organization Details LastModified Time 07/23/2020 07/23/2020 Time spent in visit is a total of 26 mins with at least 50% of visit consisting of counseling and review of plan of care. Not available 08/07/2020 10:49:25 08/07/2020 08/07/2020 Time spent in visit is a total of 26 mins with at least 50% of visit consisting of counseling and review of plan of care. Not available 08/07/2020 10:44:50 Plan of Treatment Reminders Order Date Submit Date Provider Last Modified By Organization Details Last Modified Time Details Appointments None recorded. Lab None recorded. Referral None recorded. Procedures None recorded. Surgeries None recorded. Imaging None recorded. Medication Orders Slynd 4 mg (28) tablet 2019 [email or web address] [id number], [address] , [place], [address], 0 12:53:14 nystatin- triamcino lone 100,000 unit/gram -0.1 % topical ointment 2019 020 INTERFACE [id number], [address], [place], [address], 0 10:45:30 Patient TargetsNo targets recorded. Patient Instructions Encounter Date Encounter Id Patient Instructions Last Modified By Organization Details Last Modified Time 08/21/2020 [id number] [email or web address] Not available 12:47:58 Reason for Referral None Reported. Results Created Date Observation Date Name Description Value Unit Range Abnormal Flag Note LastModifiedBy Organization Detail LastModifiedTime 07/23/20 20 07/25/2020 bacte rial vagin osis + vagin itis panel , vagin al trichomonas vaginalis, aptima (panther) NOT DETECT ED normal Trich omona s vagin ronny: DNA testi ng perfo rmed by Trans cript ion Media eden Ampli ficat ion (TMA) These resul ts shoul d be inter prete d in light of all clini shubham and labor atory findi ngs. This assay is highl y accur ate, but rare false posit digna and negat digna resul ts may occur . Posit digna resul ts in low preva lence popul ation s may requi re re-ev aluat ion. A negat digna resul t does not precl ude a possi ble infec tion due to a speci men inade quacy or sampl ing error . Test perfo rmed by [facility], d/b/a [facility], [address], [place] [address] , Robert Rucker ra, DO, Labor atory Direc tor. Maryn mason a vagin ronny, Holli da speci es: Genom ic DNA is isola eden from patie nt speci mens by stand haider labor atory techn iques and angela zed using custo m OpenA rray plate s, perfo rmed on the Quant Studi o 12K Flex Real Time PCR syste m. A posit digna resul t is provi ded for patho genic bacte johnny, virus and/o r funga l speci es based on detec tion of ampli ficat ion produ cts. Zee l vagin al bertram resul ts of Zee l or Hancock eden are deter mined by calcu latin g the ratio of the organ ism to the total bacte johnny prese nt in the speci men, and north ring that ratio to a PathG roup patie nt popul ation . Overa ll resul ts of Zee l, Borde rline and Abnor mal are deter mined using a proba bilit y model which was devel oped by an exten sive angela sis and integ ratio n of clini shubham thres holds for marke r organ isms on a large set of sympt omati c & asymp tomat ic speci mens. Patie nt popul ation s with diffe rent demog raphi cs from the PathG roup model popul ation may have diffe rent indic ator organ isms with diffe rent relat digna ratio s, which would influ ence the final resul ts. Resul ts shoul d be inter prete d in the froylan xt of all clini shubham and labor atory findi ngs. The test was devel oped and its perfo rmanc e lexi cteri stics deter mined by [employer], [employer] d/b/a [facility] [email or web address]. It has not been clear ed or appro rey by the U.S. Food and Drug Admin istra tion. The FDA has deter mined that such clear ance or appro hamilton is not neces jose carlos. Perti nent refer ence inter vals are avail able from the [facility] atory on reque st. Test( s) perfo rmed by [employer], [employer], d/b/a [facility] [email or web address], [address], [place] [address] , Robert Rucker ra, DO, Labor atory Dire tor. Not Available [facility] ([facility]) [address] [facility] [address], [place], [address], 07/26/2020 16:53:11 07/23/20 20 07/26/2020 bacte rial vagin osis + vagin itis panel , vagin al carolina sp. Not Detect ed normal Trich omona s vagin ronny: DNA testi ng perfo rmed by Trans cript ion Media eden Ampli ficat ion (TMA) These resul ts shoul d be inter prete d in light of all clini shubham and labor atory findi ngs. This assay is highl y accur ate, but rare false posit digna and negat digna resul ts may occur . Posit digna resul ts in low preva lence popul ation s may requi re re-ev aluat ion. A negat digna resul t does not precl ude a possi ble infec tion due to a speci men inade quacy or sampl ing error . Test perfo rmed by [facility], d/b/a [facility], [address], [place] [address] , Robert Rucker ra, DO, Labor atory Direc tor. Gardn erell a vagin ronny, Holli da speci es: Genom ic DNA is isola eden from patie nt speci mens by stand haider labor atory techn iques and angela zed using custo m OpenA rray plate s, perfo rmed on the Quant Studi o 12K Flex Real Time PCR syste m. A posit digna resul t is provi ded for patho genic bacte johnny, virus and/o r funga l speci es based on detec tion of ampli ficat ion produ cts. Zee l vagin al bertram resul ts of Zee l or Hancock eden are deter mined by calcu latin g the ratio of the organ ism to the total bacte johnny prese nt in the speci men, and north ring that ratio to a PathG roup patie nt popul ation . Overa ll resul ts of Zee l, Borde rline and Abnor mal are deter mined using a proba bilit y model which was devel oped by an exten sive angela sis and integ ratio n of clini shubham thres holds for marke r organ isms on a large set of sympt omati c & asymp tomat ic speci mens. Patie nt popul ation s with diffe rent demog raphi cs from the PathG roup model popul ation may have diffe rent indic ator organ isms with diffe rent relat digna ratio s, which would influ ence the final resul ts. Resul ts shoul d be inter prete d in the froylan xt of all clini shubham and labor atory findi ngs. The test was devel oped and its perfo rmanc e lexi cteri stics deter mined by [employer] d/b/a [employer] rou. It has not been clear ed or appro rey by the U.S. Food and Drug Admin istra tion. The FDA has deter mined that such clear ance or appro hamilton is not neces jose carlos. Perti nent refer ence inter vals are avail able from the labor atory on reque st. Test( s) perfo rmed by [facility] [facility] [employer], [employer], d/b/a [facility], [address], [place] [address] , Robert Rucker ra, , Labor atory Direc tor. Not Available [facility] -[facility] ([facility]) [address], [place], [address], 07/26/2020 16:53:11 07/23/20 20 07/26/2020 bacte rial vagin osis + vagin itis panel , vagin al gardnerella vaginalis Detect ed abnormal Trich omona s vagin ronny: DNA testi ng perfo rmed by Trans cript ion Media eden Ampli ficat ion (TMA) These resul ts shoul d be inter prete d in light of all clini shubham and labor atory findi ngs. This assay is highl y accur ate, but rare false posit digna and negat digna resul ts may occur . Posit digna resul ts in low preva lence popul ation s may requi re re-ev aluat ion. A negat digna resul t does not precl ude a possi ble infec tion due to a speci men inade quacy or sampl ing error . Test perfo rmed by [employer], d/b/a [facility], [address], [place] [address] , Robert Rucker ra, , Labor atory Direc tor. Gardn erell a vagin ronny, Holli da speci es: Genom ic DNA is isola eden from patie nt speci mens by stand haider labor atory techn iques and angela zed using custo m OpenA rray plate s, perfo rmed on the Quant Studi o 12K Flex Real Time PCR syste m. A posit digna resul t is provi ded for patho genic bacte johnny, virus and/o r funga l speci es based on detec tion of ampli ficat ion produ cts. Zee l vagin al bertram resul ts of Zee l or Hancock eden are deter mined by calcu latin g the ratio of the organ ism to the total bacte johnny prese nt in the speci men, and north ring that ratio to a PathG roup patie nt popul ation . Overa ll resul ts of Zee l, Borde rline and Abnor mal are deter mined using a proba bilit y model which was devel oped by an exten sive angela sis and integ ratio n of clini shubham thres holds for marke r organ isms on a large set of sympt omati c & asymp tomat ic speci mens. Patie nt popul ation s with diffe rent demog raphi cs from the PathG roup model popul ation may have diffe rent indic ator organ isms with diffe rent relat digna ratio s, which would influ ence the final resul ts. Resul ts shoul d be inter prete d in the froylan xt of all clini shubham and labor atory findi ngs. The test was devel oped and its perfo rmanc e lexi cteri stics deter mined by [employer], [employer] d/b/a [employer]. It has not been clear ed or appro rey by the U.S. Food and Drug Admin istra tion. The FDA has deter mined that such clear ance or appro hamilton is not neces jose carlos. Perti nent refer ence inter vals are avail able from the labor atory on reque st. Test( s) perfo rmed by [facility] [facility], d/b/a [facility], [address], [place] [address] , Robert Rucker ra, DO, Labor atory Direc tor. Not Available [facility] ([facility]) [address], [place], [address], 07/26/2020 16:53:11 08/23/20 20 08/25/2020 surgi shubham patho logy study surgical pathology View Report ACCES SKINNY #: [id number] Patie nt Name: CONCEPCION SUAREZ Age-S ex-DO B: 35y F [birth year] Proce dure Date: 08/23 Acces skinny Date: 2019 Pt Acct# : Repor t Date: 2019 Locat ion: OFFIC E Physi pranav( s): Sharif lazo P A T H O L O G Y R E P O R T DIAGN OSIS: Vulva , biops y: Condy jaja acumi natum . Deisy Max M.D. elect braxton barrett saqib d 08/25 04:27 PM Gross Descr iptio n: Recei rey in forma nolan label ed Concepcion Reji Fierro and vulva r biops y is a mays- lindesy porti on of tissu e measu ring 0.3 x 0.2 cm. The resec tion johan n is inked blue. The speci men is total ly submi tted in casse tte 1A. 10/22. (KKN, LT3,k dc1) Micro scopi c Descr iptio n: Micro scopi c exami natio n is perfo rmed. Proce dure: Vulva r biops y Clini shubham Histo ry: Other speci fied nonin flamm atory disor ders of vulva and perin eum (N90. 89) Speci men List: Vulva r End of Repor t Techn ical servi ailyn provi ded by [facility], [facility], d/b/a [facility], [address] [place] [address] Alec Mendoza MD, Labor atory Direc tor. Case revie wed and diagn osis rende red at [facility], d/b/a [facility], [address], [place] [address] Michael Schaeffer MD, Labor atory Dire tor. CONFI DENTI AL Not Available [facility] Lab ([facility]) [address], [place], [address], 08/25/2020 17:30:22 Result Notes None recorded. Problems Name Problem SNOMED Code Status Onset Date Resolution Date Notes Provider Name and Address Organization Details Recorded Time Herpes simplex 64875328 Active 2019 Tashia Mcghee [facility] 0 10:13:35 Hypertensive disorder 53210038 Active 2019 Tsahia Mcghee [facility] 0 10:13:48 Diabetes mellitus 20502196 Active 2019 Tashia Mcghee [facility], [facility] 0 10:13:56 Polycystic ovary syndrome 415522424 Active 2019 Tashia Mcghee [facility] 0 10:14:11 Problem Notes None recorded. Procedures Surgical History Date Name Laterality Status Provider Name and Address Organization Details Recorded Time 020 Vulvar Biopsy completed Darline Duran JEFFREY- [address], [place], [address], [facility] 08/21/2020 12:51:19 020 Control Implant Removal completed Darline Duran JEFFREY- [address], [place], [address], [facility] 08/21/2020 12:51:00 019 Date of Last Pap Smear completed Tashia Mcghee [facility] 08/07/2020 10:15:47 018 section completed [facility] 08/07/2020 10:20:28 015 Cholecystectomy completed [facility] 08/07/2020 10:20:14 015 section completed [facility] 08/07/2020 10:20:24 Imaging Results None recorded. Procedure Notes None recorded. Medical Equipment None Reported. Allergies No known drug allergies Medications Name Sig Start Date Stop Date Status Note LastModified by Organization Details LastModified Time cyclobenzap rine 10 mg tablet active Not Available Not Available Not Available amoxicillin 500 mg capsule 08/07 completed Not Available Not Available Not Available metformin 500 mg tablet active Not Available Not Available Not Available venlafaxine ER 37.5 mg capsule,ext ended release 24 hr 08/21 completed Not Available Not Available Not Available azithromyci n 250 mg tablet active Not Available Not Available Not Available nystatin 100,000 unit/gram topical ointment 08/21 completed Not Available Not Available Not Available fluconazole 150 mg tablet 08/07 completed Not Available Not Available Not Available valacyclovi r 1 gram tablet active Not Available Not Available Not Available phenazopyri dine 200 mg tablet active Not Available Not Available Not Available metronidazo le 500 mg tablet Take 1 tablet every 12 hours by oral route for 7 days. 08/07 completed Not Available Not Available Not Available nystatin-tr iamcinolone 100,000 unit/gram-0 .1 % topical ointment active Not Available Not Available Not Available famotidine 20 mg tablet active Not Available Not Available Not Available venlafaxine 37.5 mg tablet active Not Available Not Available Not Available triamcinolo ne acetonide 0.1 % topical ointment active Not Available Not Available Not Available lisinopril 10 mg tablet 08/21 completed Not Available Not Available Not Available promethazin e 25 mg tablet active Not Available Not Available Not Available estradiol 2 mg tablet active Not Available Not Available No t Available ergocalcife rol (vitamin D2) 1,250 mcg (50,000 unit) capsule 08/21 completed Not Available Not Available Not Available ibuprofen 600 mg tablet 08/21 completed Not Available Not Available Not Available albuterol sulfate HFA 90 mcg/actuati on aerosol inhaler 08/21 completed Not Available Not Available Not Available fluticasone propionate 50 mcg/actuati on nasal spray,suspe nsion active Not Available Not Available Not Available loratadine 10 mg tablet active Not Available Not Available Not Available amoxicillin 875 mg-potassiu m clavulanate 125 mg tablet 08/07 completed Not Available Not Available Not Available hydroxyzine pamoate 25 mg capsule 08/21 completed Not Available Not Available Not Available nitrofurant oin monohydrate /macrocryst als 100 mg capsule 08/07 completed Not Available Not Available Not Available OneTouch UltraSoft Lancets active Not Available Not Available Not Available Zoloft 07/23 completed Not Available Not Available Not Available Vitamin D active Not Available Not Nasra ilable Not Available lisinopril 07/23 completed Not Available Not Available Not Available metformin 07/23 completed Not Available Not Available Not Available Valtrex 07/23 completed Not Available Not Available Not Available Januvia 100 mg tablet 08/21 completed Not Available Not Available Not Available Januvia 08/07 completed Not Available Not Available Not Available Lantus Solostar U-100 Insulin 100 unit/mL (3 mL) subcutaneou s pen active Not Available Not Available Not Available Lantus Solostar U-100 Insulin 08/07 completed Not Available Not Available Not Available OneTouch Delica Lancets 33 gauge 08/21 completed Not Available Not Available Not Available Nexplanon 68 mg subdermal implant Inject by subcutane ous route. 08/21 completed Not Available Not Available Not Available Xulane 150 mcg-35 mcg/24 hr transdermal patch active Not Available Not Available Not Available BD Ultra-Fine Micro Pen Needle 32 gauge x 1/4 active Not Available Not Available Not Available OneTouch Ultra Blue Test Strip active Not Available Not Available N ot Available OneTouch Ultra2 Meter active Not Available Not Available Not Available Slynd 4 mg (28) tablet Take 1 tablet every day by oral route for 90 days. 2019 active Not Available Not Available Not Avai lable Vitals Date Recorded Body height Body mass index (BMI) Body weight Systolic And Diastolic Provider Name and Address Organization Details Last Updated DateTime 07/23/2020 157.48 cm 44.3 kg/m2 396511.35 g 132/85 mm[Hg] Rosa Kauffman [facility] 07/23/2020 12:02:54 Date Recorded Body height Body mass index (BMI) Body weight Systolic And Diastolic Provider Name and Address Organization Details Last Updated DateTime 08/07/2020 157.48 cm 43.5 kg/m2 080694.98 g 137/84 mm[Hg] Tashia Mcghee [facility] 08/07/2020 10:12:27 Date Recorded Body height Body mass index (BMI) Body weight Systolic And Diastolic Provider Name and Address Organization Details Last Updated DateTime 08/21/2020 157.48 cm 44.3 kg/m2 208535.35 g 140/86 mm[Hg] Lupeomer Veratrevon [facility] 08/21/2020 12:10:13 Social History Question Answer Notes LastModified by [facility] Details LastModified Time Tobacco Smoking Status Former Smoker Tashia Mcghee [facility], [facility] 08/07/2020 10:19:51 How Much Tobacco Do You Smoke? No [email or web address] Information not available 08/07/2020 Sex: Unknown Functional Status Question Answer Note LastModified by [facility] Details LastModified Time What is your level of alcohol consumption? Occasional Information not available 08/07/2020 Do you or have you ever used smokeless tobacco? Never used smokeless tobacco [email or web address] Information not available 08/07/2020 Do you or have you ever used e-cigarettes or vape? Never used electronic cigarettes Information not available 08/07/2020 What is your exercise level? None [email or web address] Information not available 08/07/2020 Mental Status None recorded. Family History Relationship Description Onset Age of this Age Resolved Age Notes LastModified by Organization Details LastModified Time Mother Diabetes mellitus [email or web address] Not available 2019 11:58:12 Mother Female infertility [email or web address] Not available 10:19:46 Father Diabetes mellitus [email or web address] Not available 2019 11:58:12 Maternal Grandmother Diabetes mellitus [email or web address] Not available 2019 11:58:12 Maternal Grandmother Hypertensive disorder [email or web address] Not available 08/07 10:19:10 Maternal Grandmother Female infertility [email or web address] Not available 10:19:46 Paternal Grandmother Diabetes mellitus [email or web address] Not available 2019 11:58:12 Paternal Grandfather Diabetes mellitus [email or web address] Not available 2019 11:58:12 Paternal Grandfather Hypertensive disorder [email or web address] Not available 08/07 10:19:10 Paternal Grandfather Heart disease [email or web address] Not available 08/07 10:19:22 Maternal Grandfather Diabetes mellitus [email or web address] Not available 2019 11:58:12 Medical History Condition Response Diabetes Y Infertility Y History of STI Y Polycystic ovary syndrome Y Pre-Eclampsia Y Hypertension Y Asthma Y Gynecological History Statement/Question Response STIs/STDs Y Date of Last Pap Smear 01/23/2019 Current Control Method None LMP Unknown Obstetrics History GPAL:G 3 P 2 0 1 2 Type Value Full Term 2 Spontaneous 1 Living 2 Total 3 Past Encounters Encounter ID Performer Location Encounter Start Date Encounter Closed Date Diagnosis/Indication Diagnosis SNOMED-CT Code Diagnosis ICD10 Code Diagnosis [facility] [id number] [facility] [address] [place] [address] 07/23/2020 11:55:02 07/23/2020 13:29:55 Vaginitis 13994500 N76.0 Vaginal swabs sent for abn d/c. Will have her use mycolog then return in 2wks so we can get a better view of vulva skin & consider if need a vulvar bx. Abnormal u terine bleeding 4865797821 9100 N93.9 Considerin g taking nexplanon out. Offered POP to help AUB but wants to consider. [id number] [facility] [address],[facility] [place] [address] 08/07/2020 09:49:39 08/07/2020 11:35:01 Vaginitis 22772723 N76.0 Suspect LS but want to confirm with vulvar bx. We discussed this procedure including pre-post procedure, risks, adverse outcomes with understand ing verbalized . Will return for this procedure. Will continue mycolog ointment for now. Contracept ion care management 571602743 Z30.9 Patient would like nexplanon removed as well. Minoo renee trying for another baby. We agreed to do vulvar bx & nexplanon removal same day. Counseled on this procedure today with understand ing verbalized . Will schedule. [id number] Darline Duran [facility] [address] [address] 08/21/2020 11:51:05 08/21/2020 12:49:56 Vaginal irritation 829270644 N89.8 Vulvar bx performed. continue to use mycolog ointment will call with results & furthe POC Removal of subcutaneous contraceptive 100251170 Z30.46 Removal site was cleansed with betadine [id number] lidocaine used for anesthesia . Device was removed in normal fashion without difficulty . Steristips and pressure bandage placed. Contracept ion care management 517638374 Z30.9 Discussed all control options in great detail. Pt would like to start POP. She is aware of the risks and benefits. She has contraindi cations to use of OCP or other estrogen containing hormonal therapy. Pt will start her pills on the first sunday following the start of her period. She is aware it is not effective for control the first month. She is also aware of the importance of taking at the same time every day. Encouraged use of condoms as the pill does not protect against STD's. Will return in 3 months for med check. Consent was read and signed. Pt verbalized understand ing. Slynd samples given RTO x 3mos for med check Time spent in visit is a total of 26 mins with at least 50% of visit consisting of counseling and review of plan of care not including time spent on procedures today. Health Concerns Section Related Observation LastModified by Organization Detai ls LastModified Time None Recorded Concern Status LastModified by Organization Details LastModified Time None Recorded Advance Directives Directive None Recorded Payers Insurance Date Sequence Insurance Name Policy Number Policy Sandoval Covered Member ID Sandoval Member ID Guarantor Name 11/16/2020 1 [facility] - DOS PRIOR TO 2021 (MEDICAID REPLACEMENT - HMO) Concepcion Mace [id number] Notes Date Note Type Note Provider Name and Address Organization Details Recorded Time 07/23/2020 text/html Beer - Abnormal BleedingReported bypatient.Notes:Neeru momin is a 35yo reproductive age female here for AUB on nexplanon & vaginal irritation. 1. AUB Has a Hx of aub on nexplanon since placement 12/26/2019. Was given estrogen to help but does not like the gel she had to put on wrist. Also does not feel it helped a lot. 2. VAginal irritation. Started a few days ago. Having some vag irritation & itching of vulva. No new soaps or abx. Neg urinary sx's [facility] [address], [place], [address], [facility] 08/07/2020 10:49:34 08/07/2020 text/html Vaginal/Vulvar ProblemReported bypatient.Notes:Neeru momin is here to f/u from BV treatment & ext use of mycolog per vulva. She does feel better but still with itching at top of labia majora area. Also voices would like to have nexplanon removed. Wants to try for another child. AZUL Olvera [address], [place], [address], [facility] 08/07/2020 10:45:56 08/21/2020 text/html Patient is here for the following reasons: 1. Vulvar bx 2. Nexplanon removal. AZUL Olvera [address], [place], [address], [facility] 08/21/2020 12:54:52 OBGyn Episode Ob Episode Information Episode Created Date Number of Fetuses Patient Bloodtype Patient rh Status Prepregnancy Weight lbs Domestic Partner Domestic Partner Phone Father Name Floral Manager Status 07/23/20 20 1 CLOSED Fetus Data First Name Last Name Admitted to NICU Weight (g) Sex Living Outcome Pediatric Complications Fetus ID Race Codes Race Delivery Type 3685.43 5 M Full Term [id number] Repeat Timo Calculation Initial Timo Date Initial Exam Date Initial Exam Provider Initial Ultrasound Date Last Menstrual Period Date Ultra Sound Weeks Gestation 0 Eighteen To Twenty Week Timo Update Ultra Sound Date Fundal Height At Umbil Quickening Date Ultra Sound Latest Weeks Gestation Final Timo Confirmed By Final Timo Confirmed Date Final Timo Date Ultra Sound Latest Days Gestation 0 0 Menstrual History Last Menstrual Date Menses Monthly On Bcp Conception Prior Menses Frequency Hcg Plus Date Menarche Onset Age Delivery Information Delivery Date Delivery Type Labor Anesthesia Weeks Gestation Incision Type Labor Labor Length Hrs Delivered By Post Complications Tubal Sterilization Discharge Date Comments 8 37 HSV2, IDDM, CHTN, +GBS Discharge Information Feeding Method Contraceptive Method Maternal HG B and HCT Levels Ob Episode Information Episode Created Date Number of Fetuses Patient Bloodtype Patient rh Status Prepregnancy Weight lbs Domestic Partner Domestic Partner Phone Father Name Floral Manager Status 07/23/20 20 1 CLOSED Fetus Data First Name Last Name Admitted to NICU Weight (g) Sex Living Outcome Pediatric Complications Fetus ID Race Codes Race Delivery Type 3458.63 9 M Full Term [id number] Primary Timo Calculation Initial Timo Date Initial Exam Date Initial Exam Provider Initial Ultrasound Date Last Menstrual Period Date Ultra Sound Weeks Gestation 0 Eighteen To Twenty Week Timo Update Ultra Sound Date Fundal Height At Umbil Quickening Date Ultra Sound Latest Weeks Gestation Final Timo Confirmed By Final Timo Confirmed Date Final Timo Date Ultra Sound Latest Days Gestation 0 0 Menstrual History Last Menstrual Date Menses Monthly On Bcp Conception Prior Menses Frequency Hcg Plus Date Menarche Onset Age Delivery Information Delivery Date Delivery Type Labor Anesthesia Weeks Gestation Incision Type Labor Labor Length Hrs Delivered By Post Complications Tubal Sterilization Discharge Date Comments 5 37 PREECLAM P FELICITY , DECREASED HEART RATE WITH CONTRACTI ONS Discharge Information Feeding Method Contraceptive Method Maternal HG B and HCT Levels Ob Episode Information Episode Created Date Number of Fetuses Patient Bloodtype Patient rh Status Prepregnancy Weight lbs Domestic Partner Domestic Partner Phone Father Name Floral Manager Status 08/07/20 20 1 CLOSED Fetus Data First Name Last Name Admitted to NICU Weight (g) Sex Living Outcome Pediatric Complications Fetus ID Race Codes Race Delivery Type , Spontane ous [id number] Timo Calculation Initial Timo Date Initial Exam Date Initial Exam Provider Initial Ultrasound Date Last Menstrual Period Date Ultra Sound Weeks Gestation 0 Eighteen To Twenty Week Timo Update Ultra Sound Date Fundal Height At Umbil Quickening Date Ultra Sound Latest Weeks Gestation Final Timo Confirmed By Final Timo Confirmed Date Final Timo Date Ultra Sound Latest Days Gestation 0 0 Menstrual History Last Menstrual Date Menses Monthly On Bcp Conception Prior Menses Frequency Hcg Plus Date Menarche Onset Age Delivery Information Delivery Date Delivery Type Labor Anesthesia Weeks Gestation Incision Type Labor Labor Length Hrs Delivered By Post Complications Tubal Sterilization Discharge Date Comments 2015 MISCARRIA GE Discharge Information Feeding Method Contraceptive Method Maternal HG B and HCT Levels
--- OUTSIDE RECORDS SUMMARY | 2025-05-05 23:09 | XMS_ITS | Data Portability ---
Author Organization [facility] Address [address] [place] [address] Care Team Providers Care Pediatric Clinical Nurse Specialist Name Role Phone ABIODUN PANTOJA Primary Care Provider Assessment No assessment recorded. Plan of Treatment Reminders Order Date Submit Date Provider Last Modified By Organization Details Last Modified Time Details Appointments None recorded. Lab vitamin D, 25-hydrox y, total, serum 2024 025 ROBI [facility], [address], [address], [place], [address], 5 08:29:24 cobalamin and folate panel, serum 2024 025 ROBI [facility], [address], [address], [place], [address], 5 08:29:22 CMP, serum or plasma 2024 025 ROBI [facility], [address], [address], [place], [address], 5 23:08:38 lipid panel, serum or plasma 2024 025 [email or web address] [facility], [address], [address], [place], [address], 5 14:59:58 CBC w/ auto diff 2024 025 ROBI [facility], [address], [address], [place], [address], 5 23:08:40 TSH + free T4, serum 2024 025 LACEY [facility], [address], [address], [place], [address], 5 08:29:21 HbA1c (hemoglob in A1c), blood 2024 025 LACEY [facility], [address], [address], [place], [address], 5 08:29:23 urinalysi s, dipstick 2016 017 [email or web address] In-Office Order, Internal Use Only DO Not Attach Compendium DO Not Attach Compendium, Do Not Delete/merge, [id number] 7 14:06:55 test, urine 2016 017 [email or web address] In-Office Order, Internal Use Only DO Not Attach Compendium DO Not Attach Compendium, Do Not Delete/merge, [id number] 7 15:49:55 culture, urine 2015 016 [facility], [address] [facility], [address], [place], [address], 7 06:04:26 test, urine 2015 016 [email or web address] In-Office Order, Internal Use Only DO Not Attach Compendium DO Not Attach Compendium, Do Not Delete/merge, [id number] 6 13:54:37 urinalysi s, dipstick 2015 016 [email or web address] In-Office Order, Internal Use Only DO Not Attach Compendium DO Not Attach Compendium, Do Not Delete/merge, [id number] 6 13:54:37 HCG, intact + beta subunit, quant, serum or plasma - Please fax results to [facility] 2015 016 [email or web address] [facility], [address], [address], [address], 7 16:10:08 RPR (rapid plasma reagin), serum - Please fax results to [facility] 2015 016 ROBI [facility], [address] [facility] [address], [address], [place], [address], 6 20:08:01 culture, urine - Please fax results to [facility] 2015 016 RO[facility], [address] [facility] [facility] [address], [address], [place], [address], 6 20:08:04 HCG, intact + beta subunit, quant, serum or plasma - Please fax results to [facility] 2015 016 ROBI [facility], [address], [address], [place], [address], 6 20:07:59 HSV (1+2) DNA, qual, PCR, unspecifi ed specimen - Please fax results to [facility] 2015 016 RO[facility], [address] [facility], [address], [place], [address], 6 06:05:21 culture, vaginal/r ectal, streptoco ccus group B - Please fax results to [facility] 2015 016 RO[facility], [address], [address], [place], [address], 6 06:05:22 varicella -zoster igg Ab screen, serum - Fax results to [facility] 2015 016 ROBI VIVI, [address], [address], [place], [address], 6 20:08:02 HbA1c (hemoglob in A1c), blood - Please fax to [facility] 2015 016 ROBI VIVI, [address], [address], [place], [address], 6 20:07:58 vitamin D3, 25-hydrox y, serum - [id number] Please fax results to [facility] 2015 016 ROBI VIVI, [address], [address], [place], [address], 6 20:08:01 CBC w/ auto diff - Please fax results to [facility] 2015 016 ROBI VIVI, [address], [address], [place], [address], 6 20:07:57 progester one, serum - Please fax results to [facility] 2015 016 ROBI VIVI, [address], [address], [place], [address], 6 20:08:03 hsv-2 (herpes simplex virus type 2) igg Ab, serum - Please fax results to [facility] 2015 016 RO[facility], [address] [facility] [address], [address], [place], [address], 6 20:08:03 HBsAg (hepatiti s B surface Ag), EIA, serum - Please fax results to [facility] 2015 016 RO[facility], [address] [facility] [address], [address], [place], [address], 6 20:08:04 cf (cystic fibrosis) profile - Please fax results to [facility] 2015 016 ROBI [facility], [address] [place] [address] [address], [address], [place], [address], 6 20:07:58 rubella IgG Ab, quant immunoass ay, serum or plasma - Please fax results to [facility] 2015 016 RO[facility], [address] [facility], [address], [place], [address], 6 20:08:00 type + screen, serum - Please fax results to [facility] 2015 016 RO[facility], [address] [facility] [address], [address], [place], [address], 6 20:07:58 HIV 1+2 AB + HIV 1 p24 Ag, qualitati ve immunoass ay, serum - please fax results to [facility] 2015 016 [facility], [address], [address], [address], 6 20:08:02 unlisted lab - toxassure select 13 (mw) 2015 016 [facility], [address], [address], [place], [address], 6 20:07:57 bacterial vaginosis + vaginitis panel, vaginal - Please fax results to [facility] 2015 016 [facility], [address] [facility], [address], [place], [address], 6 06:05:21 hemoglobi n S (hbs), presence, blood - Please fax results to [facility] 2015 016 [facility], [address] [facility], [address], [place], [address], 6 20:08:00 TSH, 2nd Generatio n, QN, serum or plasma - [id number] 2015 016 [facility], [address], [address], [place], [address], 6 20:07:59 test, urine 2015 016 [email or web address] [id number] In-Office Order, Internal Use Only DO Not Attach Compendium DO Not Attach Compendium, Do Not Delete/merge, [id number] 6 04:33:20 urinalysi s, dipstick 2015 016 [email or web address]_[email or web address] [id number] In-Office Order, Internal Use Only DO Not Attach Compendium DO Not Attach Compendium, Do Not Delete/merge, [id number] 6 04:33:20 urinalysi s, dipstick 2015 016 [email or web address] In-Office Order, Internal Use Only DO Not Attach Compendium DO Not Attach Compendium, Do Not Delete/merge, [id number] 6 11:05:44 test, urine 2015 016 [email or web address] In-Office Order, Internal Use Only DO Not Attach Compendium DO Not Attach Compendium, Do Not Delete/merge, [id number] 6 11:05:44 pap, IG + HPV, cervical 2015 016 RO[facility], [address] [facility], [address], [place], [address], 6 06:05:30 bacterial vaginosis + vaginitis panel, vaginal 2015 016 LACEY [facility], [address] [place] [address], [address], [place], [address], 6 07:14:23 HSV (1+2) DNA, qual, PCR, unspecifi ed specimen 2015 016 LACEY [facility], [address] [place] [address], [address], [place], [address], 6 07:14:24 Referral maternal & medicine referral 2015 016 [facility], [address] [facility], [address], [place], [address], 6 12:52:48 Procedures None recorded. Surgeries None recorded. Imaging US, pelvis, transabdo tiffanie + transvagi nal 2015 016 [facility] ([facility]), [address] [place], [address], 7 09:29:43 US, obstetric , 1st trimester - Z34.9, Z36, Z34 2015 016 [facility] ([facility]), [address], [place], [address], 7 09:10:38 Medication Orders tizanidin e 4 mg tablet 2024 025 [id number], [address], [place], [address], 5 15:11:26 hydroxyzi ne HCl 25 mg tablet 2024 025 [id number], [address], [place], [address], 5 14:59:58 sertralin e 100 mg tablet 2024 025 [id number], [address], [place], [address], 5 14:59:58 Ventolin HFA 90 mcg/actua tion aerosol inhaler 2024 025 [id number], [address], [place], [address], 5 17:08:38 omeprazol e 40 mg capsule,d elayed release 2024 025 [id number], [address], [place], [address], 5 15:13:47 Vitamin tablet 2016 017 [email or web address] Not available 4 09:36:22 valacyclo vir 1 gram tablet 2016 017 [email or web address] Not available 4 09:35:38 calcium 600 mg (as carbonate )-vitamin D3 20 mcg (800 unit) tablet 2016 017 [email or web address] Not available 5 14:14:54 Macrobid 100 mg capsule 2015 016 [email or web address] Not available 5 14:15:45 Prometriu m 200 mg capsule 2015 016 kbarbero Not available 4 09:36:18 omeprazol e 20 mg capsule,d elayed release 2015 016 kbarbero Not available 5 10:20:03 metoclopr amide 5 mg tablet 2015 016 kbarbero Not available 4 09:37:11 dicyclomi ne 10 mg capsule 2015 016 kbarbero Not available 5 14:44:16 Truetest Test Strips 2015 016 kbarbero Not available 5 14:46:01 metformin 1,000 mg tablet 2015 016 kbarbero Not available 4 09:37:23 Januvia 25 mg tablet 2015 016 kbarbero Not available 5 14:40:14 Ventolin HFA 90 mcg/actua tion aerosol inhaler 2015 016 [email or web address] [id number] Not available 6 04:33:35 Qvar 40 mcg/actua tion Metered Aerosol oral inhaler 2015 016 kbarbero Not available 4 09:36:15 Vitamin D2 1,250 mcg (50,000 unit) capsule 2015 016 kbarbero Not available 5 14:44:19 methyldop a 500 mg tablet 2015 016 kbarbero Not available 4 09:37:16 Vitamin tablet 2015 016 [email or web address] Not available 4 09:36:22 Prometriu m 200 mg capsule 2015 016 [email or web address] Not available 4 09:36:18 Patient TargetsNo targets recorded. Patient Instructions Encounter Date Encounter Id Patient Instructions Last Modified By Organization Details Last Modified Time 07/17/2016 [id number] polycystic ovary syndrome: care instructions Not available 07/17/2016 16:39:53 hemorrhoids: car e instructions Not available 07/17/2016 16:39:53 10/04/2016 [id number] gastroesophageal reflux disease (GERD): care instructions Not available 10/05/2016 10:20:11 When You Want to Lose Weight: Care Instructions Not available 10/05/2016 10:20:11 controlling your asthma: care instructions Not available 10/05/2016 10:20:11 learning about asthma Not available 10/05/2016 10:20:11 polycystic ovary syndrome: care instructions Not available 10/05/2016 10:20:11 learning about h igh blood pressure Not available 10/05/2016 10:20:11 10/20/2016 [id number] Urinary Tract Infection (UTI) in Women: Care Instructions [email or web address] Not available 10/20/2016 12:15:53 genital herpes: care instructions Not available 10/20/2016 16:59:45 threatened miscarriage: care instructions Not available 10/20/2016 16:59:45 11/01/2016 [id number] genital herpes: care instructions Not available 11/01/2016 14:01:25 When You Want to Lose Weight: Care Instructions Not available 11/01/2016 14:01:24 12/24/2024 [id number] A healthy lifest yle: care instructions [email or web address] Not available 12/24/2024 14:59:58 Reason for Referral Maternal & Medicine Re ferral for Diabetes mellitus Referring Physician: Mango Bustamante, [employer], Encounter Date: 10/04/2016 Results Created Date Observation Date Name Description Value Unit Range Abnormal Flag Note LastModifiedBy Organization Detail LastModifiedTime 11/01/19 17 11/01/2016 pregn jordon test, urine HCG negati ve Not Available In-Office Order Internal Use Only DO Not Attach Compendium DO Not Attach Compendium, Do Not Delete/merge, 11/01/2016 14:06:59 11/01/19 17 11/01/2016 urina lysis , dipst ick Leukocytes Negati ve Not Available In-Office Order Internal Use Only DO Not Attach Compendium DO Not Attach Compendium, Do Not Delete/merge, [id number] 11/01/2016 12:50:36 11/01/19 17 11/01/2016 urina lysis , dipst ick Nitrite negati ve Not Available In-Office Order Internal Use Only DO Not Attach Compendium DO Not Attach Compendium, Do Not Delete/merge, 11/01/2016 12:50:36 11/01/19 17 11/01/2016 urina lysis , dipst ick Urobilinogen .2 Not Available In-Of fice Order Internal Use Only DO Not Attach Compendium DO Not Attach Compendium, Do Not Delete/merge, 11/01/2016 12:50:36 11/01/19 17 11/01/2016 urina lysis , dipst ick Protein 100 Not Available In-Office Order Internal Use Only DO Not Attach Compendium DO Not Attach Compendium, Do Not Delete/merge, 11/01/2016 12:50:36 11/01/19 17 11/01/2016 urina lysis , dipst ick pH 5.5 Not Available In-Office Order Internal Use Only DO Not Attach Compendium DO Not Attach Compendium, Do Not Delete/merge, 11/01/2016 12:50:36 11/01/19 17 11/01/2016 urina lysis , dipst ick Blood Negati ve Not Available In-Office Order Internal Use Only DO Not Attach Compendium DO Not Attach Compendium, Do Not Delete/merge, 11/01/2016 12:50:36 11/01/19 17 11/01/2016 urina lysis , dipst ick Specific [place] 1.030 Not Available In-Off ice Order Internal Use Only DO Not Attach Compendium DO Not Attach Compendium, Do Not Delete/merge, 11/01/2016 12:50:36 11/01/19 17 11/01/2016 urina lysis , dipst ick Ketone Trace Not Available In-Office Order Internal Use Only DO Not Attach Compendium DO Not Attach Compendium, Do Not Delete/merge, [id number] 11/01/2016 12:50:36 11/01/19 17 11/01/2016 urina lysis , dipst ick Bilirubin Small Not Available In-Offic e Order Internal Use Only DO Not Attach Compendium DO Not Attach Compendium, Do Not Delete/merge, [id number] 11/01/2016 12:50:36 11/01/19 17 11/01/2016 urina lysis , dipst ick Glucose 500 Not Available In-Office Order Internal Use Only DO Not Attach Compendium DO Not Attach Compendium, Do Not Delete/merge, [id number] 11/01/2016 12:50:36 10/20/20 16 10/20/2016 urina lysis , dipst ick Leukocytes Negati ve Not Available In-Office Order Internal Use Only DO Not Attach Compendium DO Not Attach Compendium, Do Not Delete/merge, [id number] 10/20/2016 11:42:24 10/20/20 16 10/20/2016 urina lysis , dipst ick Nitrite positi ve Not Available In-Office Order Internal Use Only DO Not Attach Compendium DO Not Attach Compendium, Do Not Delete/merge, [id number] 10/20/2016 11:42:24 10/20/20 16 10/20/2016 urina lysis , dipst ick Urobilinogen .2 Not Available In-Of fice Order Internal Use Only DO Not Attach Compendium DO Not Attach Compendium, Do Not Delete/merge, [id number] 10/20/2016 11:42:24 10/20/20 16 10/20/2016 urina lysis , dipst ick Protein 100 Not Available In-Office Order Internal Use Only DO Not Attach Compendium DO Not Attach Compendium, Do Not Delete/merge, [id number] 10/20/2016 11:42:24 10/20/20 16 10/20/2016 urina lysis , dipst ick pH 5.5 Not Available In-Office Order Internal Use Only DO Not Attach Compendium DO Not Attach Compendium, Do Not Delete/merge, [id number] 10/20/2016 11:42:24 10/20/20 16 10/20/2016 urina lysis , dipst ick Blood Large Not Available In-Office Order Internal Use Only DO Not Attach Compendium DO Not Attach Compendium, Do Not Delete/merge, [id number] 10/20/2016 11:42:24 10/20/20 16 10/20/2016 urina lysis , dipst ick Specific [place] 1.025 Not Available In-Off ice Order Internal Use Only DO Not Attach Compendium DO Not Attach Compendium, Do Not Delete/merge, [id number] 10/20/2016 11:42:24 10/20/20 16 10/20/2016 urina lysis , dipst ick Ketone Small Not Available In-Office Order Internal Use Only DO Not Attach Compendium DO Not Attach Compendium, Do Not Delete/merge, [id number] 10/20/2016 11:42:24 10/20/20 16 10/20/2016 urina lysis , dipst ick Bilirubin Negati ve Not Available In-Office Order Internal Use Only DO Not Attach Compendium DO Not Attach Compendium, Do Not Delete/merge, [id number] 10/20/2016 11:42:24 10/20/20 16 10/20/2016 urina lysis , dipst ick Glucose 500 Not Available In-Office Order Internal Use Only DO Not Attach Compendium DO Not Attach Compendium, Do Not Delete/merge, [id number] 10/20/2016 11:42:24 10/20/20 16 10/20/2016 pregn jordon test, urine HCG negati ve Not Available In-Office Order Internal Use Only DO Not Attach Compendium DO Not Attach Compendium, Do Not Delete/merge, [id number] 10/20/2016 11:42:13 10/04/20 16 10/04/2016 urina lysis , dipst ick Leukocytes Negati ve Not Available In-Office Order Internal Use Only DO Not Attach Compendium DO Not Attach Compendium, Do Not Delete/merge, [id number] 10/04/2016 17:01:42 10/04/20 16 10/04/2016 urina lysis , dipst ick Nitrite negati ve Not Available In-Office Order Internal Use Only DO Not Attach Compendium DO Not Attach Compendium, Do Not Delete/merge, [id number] 10/04/2016 17:01:42 10/04/20 16 10/04/2016 urina lysis , dipst ick Urobilinogen .2 Not Available In-Of fice Order Internal Use Only DO Not Attach Compendium DO Not Attach Compendium, Do Not Delete/merge, [id number] 10/04/2016 17:01:42 10/04/20 16 10/04/2016 urina lysis , dipst ick Protein 30 Not Available In-Office Order Internal Use Only DO Not Attach Compendium DO Not Attach Compendium, Do Not Delete/merge, [id number] 10/04/2016 17:01:42 10/04/20 16 10/04/2016 urina lysis , dipst ick pH 5.5 Not Available In-Office Order Internal Use Only DO Not Attach Compendium DO Not Attach Compendium, Do Not Delete/merge, [id number] 10/04/2016 17:01:42 10/04/20 16 10/04/2016 urina lysis , dipst ick Blood Negati ve Not Available In-Office Order Internal Use Only DO Not Attach Compendium DO Not Attach Compendium, Do Not Delete/merge, 10/04/2016 17:01:42 10/04/20 16 10/04/2016 urina lysis , dipst ick Specific [place] 1.030 Not Available In-Off ice Order Internal Use Only DO Not Attach Compendium DO Not Attach Compendium, Do Not Delete/merge, [id number] 10/04/2016 17:01:42 10/04/20 16 10/04/2016 urina lysis , dipst ick Ketone Trace Not Available In-Office Order Internal Use Only DO Not Attach Compendium DO Not Attach Compendium, Do Not Delete/merge, 10/04/2016 17:01:42 10/04/20 16 10/04/2016 urina lysis , dipst ick Bilirubin Negati ve Not Available In-Office Order Internal Use Only DO Not Attach Compendium DO Not Attach Compendium, Do Not Delete/merge, 10/04/2016 17:01:42 10/04/20 16 10/04/2016 urina lysis , dipst ick Glucose 500 Not Available In-Office Order Internal Use Only DO Not Attach Compendium DO Not Attach Compendium, Do Not Delete/merge, [id number] 10/04/2016 17:01:42 10/04/20 16 10/04/2016 pregn jordon test, urine HCG positi ve Not Available In-Office Order Internal Use Only DO Not Attach Compendium DO Not Attach Compendium, Do Not Delete/merge, [id number] 10/04/2016 17:01:26 07/17/20 16 07/17/2016 pregn jordon test, urine HCG negati ve Not Available In-Office Order Internal Use Only DO Not Attach Compendium DO Not Attach Compendium, Do Not Delete/merge, [facility] 07/17/2016 15:05:01 07/17/20 16 07/17/2016 urina lysis , dipst ick Leukocytes Negati ve Not Available In-Office Order Internal Use Only DO Not Attach Compendium DO Not Attach Compendium, Do Not Delete/merge, [facility] 07/17/2016 15:05:00 07/17/20 16 07/17/2016 urina lysis , dipst ick Nitrite negati ve Not Available In-Office Order Internal Use Only DO Not Attach Compendium DO Not Attach Compendium, Do Not Delete/merge, [facility] 07/17/2016 15:05:00 07/17/20 16 07/17/2016 urina lysis , dipst ick Urobilinogen .2 Not Available In-Of fice Order Internal Use Only DO Not Attach Compendium DO Not Attach Compendium, Do Not Delete/merge, [facility] 07/17/2016 15:05:00 07/17/20 16 07/17/2016 urina lysis , dipst ick Protein 30 Not Available In-Office Order Internal Use Only DO Not Attach Compendium DO Not Attach Compendium, Do Not Delete/merge, [id number] 07/17/2016 15:05:00 07/17/20 16 07/17/2016 urina lysis , dipst ick pH 5.5 Not Available In-Office Order Internal Use Only DO Not Attach Compendium DO Not Attach Compendium, Do Not Delete/merge, [id number] 07/17/2016 15:05:00 07/17/20 16 07/17/2016 urina lysis , dipst ick Blood Negati ve Not Available In-Office Order Internal Use Only DO Not Attach Compendium DO Not Attach Compendium, Do Not Delete/merge, [id number] 07/17/2016 15:05:00 07/17/20 16 07/17/2016 urina lysis , dipst ick Specific [place] 1.020 Not Available In-Off ice Order Internal Use Only DO Not Attach Compendium DO Not Attach Compendium, Do Not Delete/merge, [id number] 07/17/2016 15:05:00 07/17/20 16 07/17/2016 urina lysis , dipst ick Ketone Trace Not Available In-Office Order Internal Use Only DO Not Attach Compendium DO Not Attach Compendium, Do Not Delete/merge, [id number] 07/17/2016 15:05:00 07/17/20 16 07/17/2016 urina lysis , dipst ick Bilirubin Negati ve Not Available In-Office Order Internal Use Only DO Not Attach Compendium DO Not Attach Compendium, Do Not Delete/merge, [id number] 07/17/2016 15:05:00 07/17/20 16 07/17/2016 urina lysis , dipst ick Glucose 500 Not Available In-Office Order Internal Use Only DO Not Attach Compendium DO Not Attach Compendium, Do Not Delete/merge, [id number] 07/17/2016 15:05:00 07/17/20 16 07/19/2016 pap, IG + HPV, cervi josette diagnosis: COMMEN T NEGAT NANCY FOR INTRA EPITH ELIAL LESANA N AND JORGE KHAN . FUNGA L ORGAN ISMS MORPH OLOGI LIANG CONSI STENT WITH NATACHA DA SPECI ES ARE PRESE NT. CELLU LAR DOOLEY ES ASSOC IATED WITH INFLA MMATI ON ARE PRESE NT. Not Available [facility] ([facility]) [address] [facility], [place], [address], 07/20/2016 06:05:30 07/17/20 16 07/19/2016 pap, IG + HPV, cervi josette specimen adequacy: COMMEN T SATIS FACTO RY FOR EVALU ATION . NO ENDOC ERVIC AL COMPO NENT IS IDENT IFIED . Not Available [facility] ([facility]) [address] [facility], [place], [address], 07/20/2016 06:05:30 07/17/20 16 07/19/2016 pap, IG + HPV, cervi josette clinician provided ICD10: ABHISHEK Carbajal Z01.4 11 Not Available [facility] ([facility]) [address] [place], [address], 07/20/2016 06:05:30 07/17/20 16 07/19/2016 pap, IG + HPV, cervi josette performed by: ABHISHEK MORALES, DENNIS VISOR Y CYTOT MAX Carbajal (ASCP ) Not Available [facility] ([facility]) [address] [place], [address], 07/20/2016 06:05:30 07/17/2007/19/2016 pap, IG + HPV, cervi josette . . Not Available [facility] ([facility]) [address] [place], [address], 07/20/2016 06:05:30 07/17/20 16 07/19/2016 pap, IG + HPV, cervi josette pathologist provided ICD10: ABHISHEK Carbajal R87.5 Not Available [facility] ([facility]) [address] [place], [address], 07/20/2016 06:05:30 07/17/20 16 07/19/2016 pap, IG + HPV, cervi josette note: ABHISHEK Carbajal THE PAP SMEAR IS A SCREE VANIA TEST DESIG YARELI TO AID IN THE DETEC TION OF ANDREA LIGNA NT AND MALIG NANT CONDI TIONS OF THE UTERI NE CERVI X. IT IS NOT A DIAGN OSTIC PROCE DURE AND SHOUL D NOT BE USED THE SOLE MEANS OF DETEC TING CERVI JOSETTE CANCE R. BOTH FALSE -POSI TIVE AND FALSE -NEGA TIVE REPOR TS DO OCCUR . Not Available [facility] ([facility]) [address] [place], [address], 07/20/2016 06:05:30 07/17/20 16 07/19/2016 pap, IG + HPV, cervi josette test methodology: COMMEN T THIS LIQUI D BASED THINP REP(R ) PAP TEST WAS SCREE YARELI WITH THE USE OF AN IMAGE GUIDE Prabha Sorto Not Available [facility] ([facility]) [address] [place], [address], 07/20/2016 06:05:30 07/17/20 16 07/19/2016 pap, IG + HPV, cervi josette HPV aptima NEGATI VE negati ve THIS TEST DETEC TS FOURT EEN HIGH- RISK HPV TYPES (16/1 8/31/ 33/35 /39/4 5/ 51/52 /56/5 8/59/ 66/68 ) WITHO UT DIFFE RENTI ATION . Not Available [facility] ([facility]) [address] [facility], [place], [address], 07/20/2016 06:05:30 07/17/20 16 07/19/2016 bacte rial vagin osis + vagin itis panel , vagin al atopobium vaginae MODERA TE - 1 score Not Available [facility] ([facility]) [address] [place], [address], 07/20/2016 07:14:23 07/17/20 16 07/19/2016 bacte rial vagin osis + vagin itis panel , vagin al bvab 2 LOW - 0 score Not Available [facility] ([facility]) [address] [place], [address], 07/20/2016 07:14:23 07/17/20 16 07/19/2016 bacte rial vagin osis + vagin itis panel , vagin al megasphaera 1 LOW - 0 score CALCU LATE TOTAL SCORE BY MELVIN Block THE 3 INDIV IDUAL BACTE RIAL VAGIN OSIS (BV) MARKE R SCORE S TOGET HER. TOTAL SCORE IS INTER PRETE D FOLLO WS: TOTAL SCORE 0-1: INDIC ATES THE ABSEN CE OF BV. TOTAL SCORE 2: INDET ERMIN ATE FOR BV. ADDIT IONAL CLINI JOSETTE DATA SHOUL D BE EVALU ATED TO ESTAB FARA Ramirez DIAGN OSIS. TOTAL SCORE 3-6: INDIC ATES THE PRESE NCE OF BV. THIS TEST WAS DEVEL OPED AND ITS PERFO RMANC E PAUL CTERI STICS DETER MINED BY [employer]. IT HAS NOT BEEN CLEAR ED OR APPRO PENELOPE BY THE FOOD AND DRUG ADMIN ISTRA TION. THE FDA HAS DETER MINED THAT SUCH CLEAR ANCE OR APPRO KORIN IS NOT NECES NOE. Not Available [facility] ([facility]) [address] [place], [address], 07/20/2016 07:14:23 07/17/20 16 07/19/2016 bacte rial vagin osis + vagin itis panel , vagin al carolina albicans, GIN POSITI VE negati ve abnormal Not Available [facility] ([facility]) [address] [place], [address], 07/20/2016 07:14:23 07/17/20 16 07/19/2016 bacte rial vagin osis + vagin itis panel , vagin al carolina glabrata, GIN POSITI VE negati ve abnormal THIS TEST WAS DEVEL OPED AND ITS PERFO RMANC E PAUL CTERI STICS DETER MINED BY ONE [employer] RP. IT HAS NOT BEEN CLEAR ED OR APPRO PENELOPE BY THE FOOD AND DRUG ADMIN ISTRA TION. THE FDA HAS DETER MINED THAT SUCH CLEAR ANCE OR APPRO KORIN IS NOT NECES NOE. PUBLI SHED DATA DEMON STRAT E THAT UP TO 65% OF NATACHA DA GLABR MARCO IDENT IFIED IN CASES OF VAGIN AL NATACHA DIASI S HAVE DECRE ASED SUSCE PTIBI LITY TO FLUCO NAZOL E. Not Available [facility] ([facility]) [address] [facility], [place], [address], 07/20/2016 07:14:23 07/17/20 16 07/19/2016 bacte rial vagin osis + vagin itis panel , vagin al trich vag by GIN NEGATI VE negati ve Not Available [facility] ([facility]) [address] [place], [address], 07/20/2016 07:14:23 07/17/20 16 07/19/2016 bacte rial vagin osis + vagin itis panel , vagin al chlamydia trachomatis, GIN NEGATI VE negati ve Not Available [facility] ([facility]) [address] [place], [address], 07/20/2016 07:14:23 07/17/20 16 07/19/2016 bacte rial vagin osis + vagin itis panel , vagin al neisseria gonorrhoeae, GIN NEGATI VE negati ve Not Available [facility] ([facility]) [address] [place], [address], 07/20/2016 07:14:23 07/17/20 16 07/20/2016 HSV (1+2) DNA, qual, PCR, unspe cifie d speci men hsv 1 GIN NEGATI VE negati ve Not Available [facility] ([facility]) [address] [place], [address], 07/20/2016 07:14:24 07/17/20 16 07/20/2016 HSV (1+2) DNA, qual, PCR, unspe cifie d speci men hsv 2 GIN NEGATI VE negati ve Not Available [facility] ([facility]) [address] [place] [address], [address], 07/20/2016 07:14:24 10/03/20 16 10/04/2016 HCG, intac t + beta subun it, quant , serum or plasm a HCG,beta subunit,qnt, serum 218 mIU/m L FEMAL E (NON- PREGN ANT) 0 - 5 (POST MENOP AUSAL ) 0 - 8 FEMAL E (PREG NANT) WEEKS OF GESTA TION 3 6 - 71 4 10 - 750 5 866 - 0215 6 934 - 33293 7 0511 -3232 63 8 38735 -6994 71 9 45498 -8380 10 10 77166 -8277 77 12 39315 -1357 12 14 17483 - 05014 92057 - 65544 16 9047 - 86930 17 8792 - 86127 18 1213 - 61602 CHRIS ECLIA METHO DOLOG Y Not Available [facility] ([facility]) [address] [place], [address], 10/04/2016 08:24:16 10/03/20 16 10/04/2016 proge stero ne, serum progesterone 6.0 NG/mL FOLLI CULAR PHASE 0.1 - 0.9 LUTEA L PHASE 1.8 - 23.9 OVULA TION PHASE 0.1 - 12.0 PREGN ANT FIRST TRIME STER 11.0 - 44.3 SECON D TRIME STER 25.4 - 83.3 THIRD TRIME STER 58.7 - 214.0 POSTM ENOPA USAL 0.0 - 0.1 Not Available [facility] ([facility]) [address] [place], [address], 10/04/2016 08:24:17 10/04/20 16 10/09/2016 bacte rial vagin osis + vagin itis panel , vagin al atopobium vaginae LOW - 0 score Not Available [facility] ([facility]) [address] [place] [address], [address], 10/10/2016 06:05:21 10/04/20 16 10/09/2016 bacte rial vagin osis + vagin itis panel , vagin al bvab 2 LOW - 0 score Not Available [facility] ([facility]) [address] [place], [address], 10/10/2016 06:05:21 10/04/20 16 10/09/2016 bacte rial vagin osis + vagin itis panel , vagin al megasphaera 1 LOW - 0 score CALCU LATE TOTAL SCORE BY MELVIN Block THE 3 INDIV IDUAL BACTE RIAL VAGIN OSIS (BV) MARKE R SCORE S TOGET HER. TOTAL SCORE IS INTER PRETE D FOLLO WS: TOTAL SCORE 0-1: INDIC ATES THE ABSEN CE OF BV. TOTAL SCORE 2: INDET ERMIN ATE FOR BV. ADDIT IONAL CLINI JOSETTE DATA SHOUL D BE EVALU ATED TO ESTAB FARA A DIAGN OSIS. TOTAL SCORE 3-6: INDIC ATES THE PRESE NCE OF BV. THIS TEST WAS DEVEL OPED AND ITS PERFO RMANC E PAUL CTERI STICS DETER MINED BY [employer]. IT HAS NOT BEEN CLEAR ED OR APPRO PENELOPE BY THE FOOD AND DRUG ADMIN ISTRA TION. THE FDA HAS DETER MINED THAT SUCH CLEAR ANCE OR APPRO KORIN IS NOT NECES NOE. Not Available [facility] ([facility]) [address] [place], [address], 10/10/2016 06:05:21 10/04/20 16 10/09/2016 bacte rial vagin osis + vagin itis panel , vagin al carolina albicans, GIN NEGATI VE negati ve Not Available [facility] ([facility]) [address] [place], [address], 10/10/2016 06:05:21 10/04/20 16 10/09/2016 bacte rial vagin osis + vagin itis panel , vagin al carolina glabrata, GIN NEGATI VE negati ve THIS TEST WAS DEVEL OPED AND ITS PERFO RMANC E PAUL CTERI STICS DETER MINED BY [employer]. IT HAS NOT BEEN CLEAR ED OR APPRO PENELOPE BY THE FOOD AND DRUG ADMIN ISTRA TION. THE FDA HAS DETER MINED THAT SUCH CLEAR ANCE OR APPRO KORIN IS NOT NECES NOE. Not Available [facility] ([facility]) [address] [place], [address], 10/10/2016 06:05:21 10/04/20 16 10/09/2016 bacte rial vagin osis + vagin itis panel , vagin al trich vag by GIN NEGATI VE negati ve Not Available [facility] ([facility]) [address] [place], [address], 10/10/2016 06:05:21 10/04/20 16 10/09/2016 bacte rial vagin osis + vagin itis panel , vagin al chlamydia trachomatis, GIN NEGATI VE negati ve Not Available [facility] ([facility]) [address] [place], [address], 10/10/2016 06:05:21 10/04/20 16 10/09/2016 bacte rial vagin osis + vagin itis panel , vagin al neisseria gonorrhoeae, GIN NEGATI VE negati ve Not Available [facility] ([facility]) [address] [place] [address], [address], 10/10/2016 06:05:21 10/04/20 16 10/07/2016 HSV (1+2) DNA, qual, PCR, unspe cifie d speci men hsv 1 GIN POSITI VE negati ve abnormal Not Available [facility] ([facility]) [address] [place] [address], [address], 10/10/2016 06:05:21 10/04/20 16 10/07/2016 HSV (1+2) DNA, qual, PCR, unspe cifie d speci men hsv 2 GIN NEGATI VE negati ve Not Available [facility] ([facility]) [address] [place] [address], [address], 10/10/2016 06:05:21 10/04/20 16 10/07/2016 cultu re, vagin al/re ctal, strep tococ cus group B strep gp B GIN POSITI VE negati ve abnormal CENTE RS FOR DISEA SE CONTR OL AND PREVE NTION (CDC) AND AMERI CAN CONGR ESS OF OBSTE TRICI ANS AND GYNEC OLOGI STS (ACOG ) GUIDE LINES FOR PREVE NTION OF PERIN ATAL GROUP B STREP TOCOC JOSETTE (GBS) DISEA SE SPECI FY CO-CO LLECT ION OF A VAGIN AL AND RECTA L SWAB SPECI MEN TO MAXIM IZE SENSI TIVIT Y OF GBS DETEC TION. PER THE CDC AND ACOG, SWABB ING BOTH THE LOWER VAGIN A AND RECTU M SUBST ANTIA LLY INCRE ASES THE YIELD OF DETEC TION RALPH RED WITH SAMPL ING THE VAGIN A ALONE . PENIC ILLIN G, AMPIC ILLIN , OR CEFAZ MARITZA ARE INDIC ATED FOR INTRA PARTU M PROPH YLAXI S OF PERIN ATAL GBS COLON IZATI ON. REFLE X SUSCE PTIBI LITY TESTI NG SHOUL D BE PERFO RMED PRIOR TO USE OF CLIND AMYCI N ONLY ON GBS ISOLA TING FROM PENIC ILLIN -DEBORAH RGIC WOMEN WHO ARE CONSI DERED A HIGH RISK FOR ANAPH YLAXI S. TREAT MENT WITH VANCO MYCIN WITHO UT ADDIT IONAL TESTI NG IS WARRA NTED IF RESIS TANCE TO CLIND AMYCI N IS NOTED . Not Available [facility] ([facility]) [address] [facility], [place], [address], 10/10/2016 06:05:22 10/04/20 16 10/08/2016 toxas sure selec t 13 (mw) report summary FINAL ===== ===== ===== ===== ===== ===== ===== ===== ===== ===== ===== ===== ===== === TOXAS SURE SELEC T 13 (MW) ===== ===== ===== ===== ===== ===== ===== ===== ===== ===== ===== ===== ===== === TEST RESUL T FLAG UNITS NO DRUGS DETEC LUCÍA. ===== ===== ===== ===== ===== ===== ===== ===== ===== ===== ===== ===== ===== === TEST RESUL T FLAG UNITS REF RANGE CREAT ININE 215 MG/DL >=20 ===== ===== ===== ===== ===== ===== ===== ===== ===== ===== ===== ===== ===== === DECLA RED MEDIC ATION S: MEDIC ATION LIST WAS NOT PROVI DED. ===== ===== ===== ===== ===== ===== ===== ===== ===== ===== ===== ===== ===== === FOR CLINI JOSETTE CONSU LTATI ON, PLEAS E CALL [phone]. ===== ===== ===== ===== ===== ===== ===== ===== ===== ===== ===== ===== ===== === Not Available [facility] [address] [facility], [place], [address], 10/11/2016 20:07:57 10/04/20 16 10/08/2016 toxas sure selec t 13 () pdf . Not Available [facility] [address] [facility], [place], [address], 10/11/2016 20:07:57 10/04/20 16 10/05/2016 CBC w/ auto diff WBC 11.7 x10e3 /uL 3.4-10 .8 above high normal Not Available [facility] ([facility]) [address] [facility], [place], [address], 10/11/2016 20:07:57 10/04/20 16 10/05/2016 CBC w/ auto diff RBC 5.01 x10e6 /uL 3.77-5 .28 Not Available [facility] ([facility]) [address] [facility], [place], [address], 10/11/2016 20:07:57 10/04/20 16 10/05/2016 CBC w/ auto diff hemoglobin 13.9 g/dL 11.1-1 5.9 Not Available [facility] ([facility]) [address] [facility], [place], [address], 10/11/2016 20:07:57 10/04/20 16 10/05/2016 CBC w/ auto diff hematocrit 43.0 % 34.0-4 6.6 Not Available [facility] ([facility]) [address] [facility], [place], [address], 10/11/2016 20:07:57 10/04/20 16 10/05/2016 CBC w/ auto diff MCV 86 fL 79-97 Not Available [facility] ([facility]) [address] [facility], [place], [address], 10/11/2016 20:07:57 10/04/20 16 10/05/2016 CBC w/ auto diff MCH 27.7 pg 26.6-3 3.0 Not Available [facility] ([facility]) [address] [facility], [place], [address], 10/11/2016 20:07:57 10/04/20 16 10/05/2016 CBC w/ auto diff MCHC 32.3 g/dL 31.5-3 5.7 Not Available [facility] ([facility]) [address] [facility], [place], [address], 10/11/2016 20:07:57 10/04/20 16 10/05/2016 CBC w/ auto diff RDW 14.0 % 12.3-1 5.4 Not Available [facility] ([facility]) [address] [facility], [place], [address], 10/11/2016 20:07:57 10/04/20 16 10/05/2016 CBC w/ auto diff platelets 369 x10e3 /uL 150-37 9 Not Available [facility] ([facility]) [address] [facility], [place], [address], 10/11/2016 20:07:57 10/04/20 16 10/05/2016 CBC w/ auto diff neutrophils 60 % Not Available [facility] ([facility]) [address] [place], [address], 10/11/2016 20:07:57 10/04/20 16 10/05/2016 CBC w/ auto diff lymphs 34 % Not Available [facility] ([facility]) [address] [place], [address], 10/11/2016 20:07:57 10/04/20 16 10/05/2016 CBC w/ auto diff monocytes 4 % Not Available [facility] ([facility]) [address] [place], [address], 10/11/2016 20:07:57 10/04/20 16 10/05/2016 CBC w/ auto diff eos 2 % Not Available [facility] ([facility]) [address] [place], [address], 10/11/2016 20:07:57 10/04/20 16 10/05/2016 CBC w/ auto diff basos 0 % Not Available [facility] ([facility]) [address] [place], [address], 10/11/2016 20:07:57 10/04/20 16 10/05/2016 CBC w/ auto diff immature cells DRY TRANSFER WORKER Not Available [facility] ([facility]) [address] [place], [address], 10/11/2016 20:07:57 10/04/20 16 10/05/2016 CBC w/ auto diff neutrophils (absolute) 7.1 x10e3 /uL 1.4-7. 0 above high normal Not Available [facility] ([facility]) [address] [place], [address], 10/11/2016 20:07:57 10/04/20 16 10/05/2016 CBC w/ auto diff lymphs (absolute) 3.9 x10e3 /uL 0.7-3. 1 above high normal Not Available [facility] ([facility]) [address] [facility], [place], [address], 10/11/2016 20:07:57 10/04/20 16 10/05/2016 CBC w/ auto diff monocytes(ab solute) 0.5 x10e3 /uL 0.1-0. 9 Not Available [facility] ([facility]) [address] [facility], [place], [address], 10/11/2016 20:07:57 10/04/20 16 10/05/2016 CBC w/ auto diff eos (absolute) 0.2 x10e3 /uL 0.0-0. 4 Not Available [facility] ([facility]) [address] [facility], [place], [address], 10/11/2016 20:07:57 10/04/20 16 10/05/2016 CBC w/ auto diff baso (absolute) 0.0 x10e3 /uL 0.0-0. 2 Not Available [facility] ([facility]) [address] [facility], [place], [address], 10/11/2016 20:07:57 10/04/20 16 10/05/2016 CBC w/ auto diff immature granulocytes 0 % Not Available [facility]) [address] [facility], [place], [address], 10/11/2016 20:07:57 10/04/20 16 10/05/2016 CBC w/ auto diff immature grans (abs) 0.0 x10e3 /uL 0.0-0. 1 Not Available [facility] ([facility]) [address] [place], [address], 10/11/2016 20:07:57 10/04/20 16 10/05/2016 CBC w/ auto diff NRBC DRY TRANSFER WORKER Not Available [facility] ([facility]) [address] [place], [address], 10/11/2016 20:07:57 10/04/20 16 10/05/2016 CBC w/ auto diff hematology comments: DRY TRANSFER WORKER Not Available [facility] ([facility]) [address] [facility], [place], [address], 10/11/2016 20:07:57 10/04/20 16 10/05/2016 type + scree n, serum ABO grouping A Not Available [facility] ([facility]) [address] [facility], [place], [address], 10/11/2016 20:07:58 10/04/20 16 10/05/2016 type + scree n, serum Rh factor POSITI VE PLEAS E NOTE: PRIOR RECOR DS FOR THIS PATIE NT'S ABO / RH TYPE ARE NOT AVAIL ABLE FOR ADDIT IONAL VERIF ICATI ON. Not Available [facility] ([facility]) [address] [facility], [place], [address], 10/11/2016 20:07:58 10/04/20 16 10/05/2016 type + scree n, serum antibody screen NEGATI VE negati ve Not Available [facility] ([facility]) [address] [facility], [place], [address], 10/11/2016 20:07:58 10/04/20 16 10/04/2016 cf (cyst ic fibro sis) profmonster rhodes comment: COMMEN T THE ASSAY PROVI TRINITY INFOR MATIO N INTEN DED TO BE USED FOR EDMUND ER SCREE VANIA IN ADULT S OF REPRO DUCTI VE AGE, AN AID IN NEW RN SCREE VANIA, AND A CONFI RMATO RY TEST FOR ANOTH ER MEDIC ALLY ESTAB LISHE D DIAGN OSIS IN NEW RNS AND CHILD JERICHO. THE TEST IS NOT INDIC ATED FOR USE IN DIAGN OSTIC TESTI NG, PRE-I MPLAN TATIO N SCREE VANIA, OR FOR ANY STAND -MACARENA E DIAGN OSTIC PURPO SES WITHO UT CONFI RMATI ON BY ANOTH ER MEDIC ALLY ESTAB LISHE D DIAGN OSTIC PRODU CT OR PROCE DURE. Not Available [facility] ([facility]) [address] [facility], [place], [address], 10/11/2016 20:07:58 10/04/20 16 10/11/2016 cf (cyst ic fibro sis) profi le CF, screen COMMEN T: RESUL TS: NEGAT NANCY FOR 32 MUTAT IONS LJ ZED INTER PRETA TION: THIS INDIV IDUAL IS NEGAT NANCY FOR THE MUTAT IONS LJ ZED. THIS NEGAT NANCY RESUL T MAY NEED FURTH ER INTER PRETA TION DEPEN DING ON THE CLINI JOSETTE INDIC ATION . THIS RESUL T REDUC ES BUT DOES NOT ELIMI [place] THE RISK TO BE A CF EDMUND ER. COMME NTS: THE DETEC TION RATE VARIE S WITH [place] AND IS LISTE D BELOW . THE PRESE NCE OF AN UNDET ECTED MUTAT ION IN THE CF GENE CANNO T BE RULED OUT. IN THE ABSEN CE OF FAMIL Y HISTO RY, THE REMAI VANIA RISK THAT A PERSO N WITH A NEGAT NANCY RESUL T COULD HAVE AT LEAST ONE CF MUTAT ION IS LISTE D IN THE TABLE . IF THERE IS A FAMIL Y HISTO RY OF CF, THESE RISK FIGUR ES DO NOT APPLY . DETAI LED INFOR EMORY LUNA THIS INDIV IDUAL 'S FAMIL Y HISTO RY WOULD PERMI T A MORE ACCUR ATE ASSES SMENT OF THIS INDIV IDUAL 'S RISK TO BE A EDMUND ER OF CYSTI C FIBRO SIS, PLEAS E CONTA CT [facility] RP LUDY IC SERVI TIFFANIE AT FOR A JOHN ED REPOR T. MUTAT ION DETEC TION DETEC TION RATES ARE BASED ON MUTAT ION RATES AMONG ETHNI C FREQU ENCIE S IN PATIE NTS AFFEC LUCÍA WITH GROUP S CYSTI C FIBRO SIS. AMONG INDIV IDUAL S WITH AN ATYPI JOSETTE OR MILD PRESE NTATI ON (E.G. CONGE NITAL ABSEN CE OF THE VAS DEFER ENS, PANCR EATIT IS) DETEC TION RATES MAY VARY FROM THOSE PROVI DED HERE: EDMUND ER RISK REDUC TION WHEN NO FAMIL Y HISTO RY DETEC TION [place] RATE BRAD RIOS 11/16 TO 97% JEWIS H CAUCA BILL 11/15 TO 90% (NON- HISPA PAT) AFRIC AN-AM SURAJ N TO 69% HISPA PAT 46 TO 73% TO 55% THIS INTER PRETA TION IS BASED ON THE CLINI JOSETTE AND FAMIL Y RELAT IONSH IP INFOR MATIO N PROVI DED AND THE CURRE NT UNDER STAND ING OF THE [facility] LUDY ICS OF THIS CONDI TION. MUTAT IONS LJ ZED: G85E V520F W1282 X 2183A A TO G R117H G542X N1303 K 2184D MILVIA R334W S549N 394DE LTT 2789+ 5G TO A R347H S549R 621+1 G TO T 3120+ 1G TO A R347P G551D 711+1 G TO T 3659D ELC A455E R553X 1078D ELT 3849+ 10KBC TO T DELTA I507 R560T 1717- 1G TO A 3876D MILVIA DELTA F508 R1162 X 1898+ 1G TO A 3905I NST METHO DS/LI MITAT IONS: DNA IS ISOLA LUCÍA FROM THE SAMPL E AND TESTE D FOR THE 32 CF MUTAT IONS ON THE UNIVE RSAL ARRAY PLATF ORM (REBECA NEX). REGIO NS OF THE CFTR GENE ARE AMPLI FIED ENZYM ATICA LLY AND SUBJE CTED TO A SOLUT ION-P HASE MULTI PLEX ALLEL E-SPE CIFIC PRIME R EXTEN SKINNY WITH SUBSE QUENT HYBRI DIZAT ION TO A BEAD ARRAY AND FLUOR ESCEN CE DETEC TION. POLYM ORPHI SMS F508C , I506V AND I507V ARE INCLU DED IN THIS PANEL TO RULE OUT FALSE POSIT NANCY DELTA F508 HOMOZ YGOTE S. REFLE X TESTI NG OF 5T IS INCLU DED IN THE PANEL FOR R117H INTER PRETA TION. FALSE POSIT NANCY OR NEGAT NANCY RESUL TS MAY OCCUR FOR REASO NS THAT INCLU DE LUDY IC VARIA NTS, BLOOD TRANS FUSIO NS, BONE MARRO W TRANS PLANT ATION , LEONID EOUS REPRE SENTA TION OF FAMIL Y RELAT IONSH IPS OR CONTA MINAT ION OF A SAMPL E WITH MATER NAL CELLS . REFER ENCES : 1. UPDAT ES ON EDMUND ER SCREE VANIA FOR CYSTI C FIBRO SIS. (2011 ) AM J OB GYNEC OL 117(4 ):102 8-103 1 2. SVETLANA N, ET AL. (2004 ) [facility] 6:387 -91 3. JACQUELINE HILARIO, ET AL. (2002 ) [facility] MED 4:379 -391 4. PRECO NCEPT ION AND PRENA CLEM EDMUND ER SCREE VANIA FOR CYSTI C FIBRO SIS: (2000 )ACOG .[facility] PUBLI CATIO N RESUL TS RELEA SED BY: SHARON MINOR, PH.D. , [facility] REPOR T RELEA SED BY: SHARON MINOR, PH.D. , [facility] Not Available [facility] ([facility]) [address] [place], [address], 10/11/2016 20:07:58 10/04/20 16 10/05/2016 HbA1c (hemo globi n A1c), blood hemoglobin A1C 9.5 % 4.8-5. 6 above high normal PRE-D IABET ES: 5.7 - 6.4 DIABE TING: >6.4 GLYCE RENE CONTR OL FOR ADULT S WITH DIABE TING: <7.0 Not Available [facility] ([facility]) [address] [place], [address], 10/11/2016 20:07:58 10/04/20 16 10/05/2016 TSH, ultra -sens itive , serum TSH 2.250 uIU/m L 0.450- 4.500 Not Available [facility] ([facility]) [address] [place], [address], 10/11/2016 20:07:59 10/04/20 16 10/05/2016 HCG, intac t + beta subun it, quant , serum or plasm a HCG,beta subunit,qnt, serum 254 mIU/m L FEMAL E (NON- PREGN ANT) 0 - 5 (POST MENOP AUSAL ) 0 - 8 FEMAL E (PREG NANT) WEEKS OF GESTA TION 3 6 - 71 4 10 - 750 5 595 - 8699 6 838 - 14910 7 4687 -0000 63 8 84370 -1497 71 9 29021 -1514 10 10 23104 -2839 77 12 34028 -1401 12 14 53691 - 41844 15 39137 - 74536 16 1670 - 84497 17 2290 - 59555 18 7513 - 52819 CHRIS ECLIA METHO DOLOG Y Not Available [facility] ([facility]) [address] [place] [address], [address], 10/11/2016 20:07:59 10/04/20 16 10/05/2016 hemog lobin S (hbs) , prese nce, blood hemoglobin (HGB) solubility NEGATI VE negati ve Not Available [facility] ([facility]) [address] [place], [address], 10/11/2016 20:08:00 10/04/20 16 10/05/2016 rubel la IgG Ab, quant immun oassa y, serum or plasm a rubella antibodies, IgG <0.90 index immune >0.99 below low normal NON-I MMUNE <0.90 EQUIV OCAL 0.90 - 0.99 IMMUN E >0.99 Not Available [facility] ([facility]) [address] [place], [address], 10/11/2016 20:08:00 10/04/20 16 10/05/2016 RPR (rapi d plasm a reagi n), serum RPR NON REACTI VE non reacti ve Not Available [facility] ([facility]) [address] [place], [address], 10/11/2016 20:08:01 10/04/20 16 10/05/2016 vitam in D3, 25-hy droxy , serum vitamin D, 25-hydroxy 16.1 NG/mL 30.0-1 00.0 below low normal VITAM IN D DEFIC IENCY HAS BEEN DEFIN ED BY THE INSTI TUTE OF MEDIC INE AND AN ENDOC RINE SOCIE TY PRACT ICE GUIDE LINE A LEVEL OF SERUM 25-OH VITAM IN D LESS THAN 20 NG/ML (1,2) . THE ENDOC RINE SOCIE TY WENT ON TO FURTH ER DEFIN E VITAM IN D INSUF FICIE NCY A LEVEL BETWE EN 21 AND 29 NG/ML (2). 1. IOM (INST ITUTE OF MEDIC INE). 2009. DIETA RY REFER ENCE INTAK ES FOR CALCI UM AND D. SKYLAR VILLANUEVA DC: THE [facility] PRESS . 2. RODRIGUE Alfaro MF, [place] EY NC, RENATE OFF-F AMRIT I PATIÑO, ET AL. EVALU ATION , TREAT MENT, AND PREVE NTION OF VITAM IN D DEFIC IENCY : AN ENDOC RINE SOCIE TY CLINI JOSETTE PRACT ICE GUIDE LINE. JCEM. 2010; 96(7) :1911 -30. Not Available [facility] ([facility]) [address] [facility], [place], [address], 10/11/2016 20:08:01 10/04/20 16 10/05/2016 HIV 1+2 AB + HIV 1 p24 Ag, quali tativ e immun oassa y, serum HIV screen 4TH generation wrfx NON REACTI VE non reacti ve Not Available [facility] ([facility]) [address] [facility], [place], [address], 10/11/2016 20:08:02 10/04/20 16 10/05/2016 varic virgil- zoste r igg Ab scree n, serum varicella zoster IgG 740 index immune >165 NEGAT NANCY <135 EQUIV OCAL 135 - 165 POSIT NANCY >165 A POSIT NANCY RESUL T GENER ALLY INDIC ATES EXPOS URE TO THE PATHO GEN OR ADMIN ISTRA TION OF SPECI FIC IMMUN OGLOB ULINS , BUT IT IS NOT INDIC ATION OF ACTIV E INFEC TION OR STAGE OF DISEA SE. 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 EQUIV OCAL MAY SUGGE ST EARLY INFEC TION. IF CLINI LIANG APPRO PRIAT E, RETES T AT LATER DATE. POSIT NANCY INDIC ATES ANTIB ODIES DETEC LUCÍA TO HSV-2 . Not Available [facility] ([facility]) [address] [facility], [place], [address], 10/11/2016 20:08:03 10/04/20 16 10/05/2016 proge stero ne, serum progesterone 6.3 NG/mL FOLLI CULAR PHASE 0.1 - 0.9 LUTEA L PHASE 1.8 - 23.9 OVULA TION PHASE 0.1 - 12.0 PREGN ANT FIRST TRIME STER 11.0 - 44.3 SECON D TRIME STER 25.4 - 83.3 THIRD TRIME STER 58.7 - 214.0 POSTM ENOPA USAL 0.0 - 0.1 Not Available [facility] ([facility]) [address] [facility], [place], [address], 10/11/2016 20:08:03 10/04/20 16 10/05/2016 HBsAg (hepa titis B surfa ce Ag), EIA, serum HBsAg screen NEGATI VE negati ve Not Available [facility] ([facility]) [address] [place], [address], 10/11/2016 20:08:04 10/04/20 16 10/06/2016 cultu re, urine urine culture, routine FINAL REPORT abnormal Not Available [facility] ([facility]) [address] [place], [address], 10/11/2016 20:08:04 10/04/20 16 10/06/2016 cultu re, urine result 1 STAPHY LOCOCC US AUREUS abnormal 50,00 0-100 ,000 COLON Y FORMI NG UNITS PER ML BASED ON RESIS TANCE TO PENIC ILLIN AND SUSCE PTIBI LITY TO OXACI LLIN THIS ISOLA TE WOULD BE SUSCE PTIBL E TO: * PENIC ILLIN ASE-S TABLE PENIC ILLIN S; SUCH : CLOXA CILLI N DICLO XACIL NOLAN NAFCI LLIN * BETA- LACTA M/BET A-LAC FABIOLA E INHIB ITOR COMBI NATIO NS; SUCH : AMOXI CILLI N-CLA VULAN IC ACID AMPIC ILLIN -SULB ACTAM * ANTIS TAPHY LOCOC JOSETTE CEPHE MS; SUCH : CEFAC ROSA CEFUR OXIME * ANTIS TAPHY LOCOC JOSETTE CARBA PENEM S; SUCH : IMIPE NEM MEROP ENEM Not Available [facility] ([facility]) [address] [facility], [place], [address], 10/11/2016 20:08:04 10/04/20 16 10/06/2016 cultu re, urine antimicrobia l susceptibili ty COMMEN T S = SUSCE PTIBL E; I = INTER MEDIA TE; R = RESIS TANT P = POSIT NANCY; N = NEGAT NANCY MICS ARE EXPRE SSED IN MICRO GRAMS PER ML ANTIB IOTIC RSLT# 1 RSLT# 2 RSLT# 3 RSLT# 4 CIPRO FLOXA SARA I GENTA MICIN S LEVOF LOXAC IN S LINEZ OLID S MOXIF LOXAC IN S NITRO FURAN TOIN S OXACI LLIN S PENIC ILLIN R QUINU PRIST IN/DA LFOPR ISTIN S RIFAM PIN S TETRA CYCLI NE S TRIME THOPR IM/FLANAGAN LFA S VANCO MYCIN S Not Available [facility] ([facility]) [address] [facility], [place], [address], 10/11/2016 20:08:04 10/12/20 16 10/13/2016 proge stero ne, serum progesterone 7.6 NG/mL FOLLI CULAR PHASE 0.1 - 0.9 LUTEA L PHASE 1.8 - 23.9 OVULA TION PHASE 0.1 - 12.0 PREGN ANT FIRST TRIME STER 11.0 - 44.3 SECON D TRIME STER 25.4 - 83.3 THIRD TRIME STER 58.7 - 214.0 POSTM ENOPA USAL 0.0 - 0.1 Not Available [facility] ([facility]) [address] [place], [place], [id number], 10/13/2016 06:12:38 10/20/20 16 10/21/2016 HCG, intac t + beta subun it, quant , serum or plasm a HCG,beta subunit,qnt, serum 8 mIU/m L FEMAL E (NON- PREGN ANT) 0 - 5 (POST MENOP AUSAL ) 0 - 8 FEMAL E (PREG NANT) WEEKS OF GESTA TION 3 6 - 71 4 10 - 750 5 957 - 9217 6 984 - 52698 7 1936 -3757 63 8 21124 -2127 71 9 [id number] [phone] 10 10 32920 -1368 77 12 86010 -1886 12 14 09299 - 58554 15 36608 - 36293 16 8154 - 40928 17 4625 - 10802 18 9712 - [phone] CHRIS ECLIA METHO DOLOG Y Not Available [facility] ([facility]) [address] [place], [address], 10/21/2016 07:09:42 10/20/20 16 10/22/2016 cultu re, urine urine culture, routine FINAL REPORT abnormal Not Available [facility] ([facility]) [address] [place] [address], [id number], 10/23/2016 06:04:26 10/20/20 16 10/22/2016 cultu re, urine result 1 ESCHER ICHIA COLI abnormal GREAT ER THAN 100,0 00 COLON Y FORMI NG UNITS PER ML Not Available [facility] ([facility]) [address] [place], [address], 10/23/2016 06:04:26 10/20/20 16 10/22/2016 cultu re, urine antimicrobia l susceptibili ty COMMEN T S = SUSCE PTIBL E; I = INTER MEDIA TE; R = RESIS TANT P = POSIT NANCY; N = NEGAT NANCY MICS ARE EXPRE SSED IN MICRO GRAMS PER ML ANTIB IOTIC RSLT# 1 RSLT# 2 RSLT# 3 RSLT# 4 AMOXI CILLI N/CLA VULAN IC ACID R AMPIC ILLIN R CEFAZ MARITZA R CEFEP FATMATA S CEFTR IAXON E S CEFUR OXIME I CEPHA LOTHI N R CIPRO FLOXA SARA S ERTAP ENEM S GENTA MICIN S IMIPE NEM S LEVOF LOXAC IN S NITRO FURAN TOIN S PIPER ACILL IN R TETRA CYCLI NE S TOBRA MYCIN S TRIME THOPR IM/FLANAGAN LFA S Not Available [facility] ([facility]) [address], [place], [address], 10/23/2016 06:04:26 02/08/20 23 02/14/2023 Hemog lobin A1c/H emogl obin. total in Blood hemoglobin A1C/hemoglob in.total in blood 6 text: <5.7 % of total HGB high Hemog lobin A1c 6.0 (H) <5.7 % of total Hgb [facility] Not Available Not Available 12/24/2024 03:29:42 02/08/20 23 02/14/2023 Hemog lobin A1c/H emogl obin. total in Blood interpretati on and review of laboratory results Abnorm al Not Available Not Available 03:29:42 06/25/20 24 06/25/2024 CBC W Auto Diffe renti al panel - Blood leukocytes [#/volume] in blood by automated count 5.5 text: 4.0 - 10.7 x10e9/ L WBC 5.5 4.0 - 10.7 x10E9 /L 06/25 11:22 AM CDT [facility] Not Available Not Available 12/24/2024 03:29:51 06/25/20 24 06/25/2024 CBC W Auto Diffe renti al panel - Blood erythrocytes [#/volume] in blood by automated count 4.52 text: 3.90 - 5.20 x10e12 /L RBC Count 4.52 3.90 - 5.20 x10E1 2/L 06/25 11:22 AM CDT [facility] Not Available Not Available 12/24/2024 03:29:51 06/25/20 24 06/25/2024 CBC W Auto Diffe renti al panel - Blood hemoglobin [mass/volume ] in blood 10.4 g/dL low: 11.9g/ dLhigh : 15.8g/ dL low Hemog lobin 10.4 (L) 11.9 - 15.8 g/dL 06[facility]25 [facility] Not Available Not Available 12/24/2024 03:29:51 06/25/20 24 06/25/2024 CBC W Auto Diffe renti al panel - Blood hematocrit [volume fraction] of blood by automated count 34.5 % low: 34.8%h igh: 46.1% low Hemat ocrit 34.5 (L) 34.8 - 46.1 % 06/25 11:22 AM [facility] Not Available Not Available 12/24/2024 03:29:51 06/25/20 24 06/25/2024 CBC W Auto Diffe renti al panel - Blood MCV [entitic volume] by automated count 76.3 fL low: 80fLhi gh: 98fL low MCV 76.3 (L) 80.0 - 98.0 fL 06/25 11:22 AM [facility] Not Available Not Available 12/24/2024 03:29:51 06/25/20 24 06/25/2024 CBC W Auto Diffe jerichoti al panel - Blood MCH [entitic mass] by automated count 23 pg low: 26.7pg high: 33.6pg low MCH 23.0 (L) 26.7 - 33.6 pg 06/25 11:22 AM [facility] Not Available Not Available 12/24/2024 03:29:51 06/25/20 24 06/25/2024 CBC W Auto Diffe renti al panel - Blood MCHC [mass/volume ] by automated count 30.1 g/dL low: 31.7g/ dLhigh : 36.3g/ dL low MCHC 30.1 (L) 31.7 - 36.3 g/dL 06/25 11:22 AM [facility] Not Available Not Available 12/24/2024 03:29:51 06/25/20 24 06/25/2024 CBC W Auto Diffe renti al panel - Blood erythrocyte distribution width [ratio] by automated count 14.9 % low: 11.3%h igh: 14.8% high RDW-C V 14.9 (H) 11.3 - 14.8 % 06/25 11:22 AM CDT [facility] Not Available Not Available 12/24/2024 03:29:51 06/25/20 24 06/25/2024 CBC W Auto Diffe renti al panel - Blood platelets [#/volume] in blood by automated count 352 text: 150 - 420 x10e9/ L Plate let Count 352 150 - 420 x10E9 /L 06/25 11:22 AM CDT [facility] Not Available Not Available 12/24/2024 03:29:51 06/25/20 24 06/25/2024 CBC W Auto Diffe renti al panel - Blood platelet mean volume [entitic volume] in blood by automated count 9.7 fL low: 7.8fLh igh: 11.4fL MPV 9.7 7.8 - 11.4 fL 06/25 11:22 AM CDT [facility] Not Available Not Available 12/24/2024 03:29:51 06/25/20 24 06/25/2024 CBC W Auto Diffe renti al panel - Blood neutrophils/ 100 leukocytes in blood by automated count 55.1 % low: 41%hig h: 74% Neutr ophil % 55.1 41.0 - 74.0 % 06/25 11:22 AM CDT [facility] Not Available Not Available 12/24/2024 03:29:51 06/25/20 24 06/25/2024 CBC W Auto Diffe renti al panel - Blood lymphocytes/ 100 leukocytes in blood by automated count 37.9 % low: 17%hig h: 47% Lymph ocyte % 37.9 17.0 - 47.0 % 06/25 11:22 AM CDT [facility] Not Available Not Available 12/24/2024 03:29:51 06/25/20 24 06/25/2024 CBC W Auto Diffe renti al panel - Blood monocytes/10 0 leukocytes in blood by automated count 5.3 % low: 3%high : 11% Monoc yte % 5.3 3.0 - 11.0 % 06/25 11:22 AM CDT [facility] Not Available Not Available 12/24/2024 03:29:51 06/25/20 24 06/25/2024 CBC W Auto Diffe renti al panel - Blood eosinophils/ 100 leukocytes in blood by automated count 1.1 % low: 0%high : 7% Eosin ophil % 1.1 0.0 - 7.0 % 06/25 11:22 AM CDT [facility] Not Available Not Available 12/24/2024 03:29:51 06/25/20 24 06/25/2024 CBC W Auto Diffe renti al panel - Blood basophils/10 0 leukocytes in blood by automated count 0.4 % low: 0%high : 1.6% Basop hil % 0.4 0.0 - 1.6 % 06/25 11:22 AM [facility] Not Available Not Available 12/24/2024 03:29:51 06/25/20 24 06/25/2024 CBC W Auto Diffe renti al panel - Blood immature granulocytes /100 leukocytes in blood by automated count 0.2 % low: 0%high : 1% Immat ure Granu locyt es % 0.2 0.0 - 1.0 % 06/25 11:22 AM [facility] Not Available Not Available 12/24/2024 03:29:51 06/25/20 24 06/25/2024 CBC W Auto Diffe renti al panel - Blood neutrophils [#/volume] in blood by automated count 3.05 text: 1.60 - 7.50 x10e9/ L Neutr ophil Absol [place] 3.05 1.60 - 7.50 x10E9 /L 06/25 11:22 AM [facility] Not Available Not Available 12/24/2024 03:29:51 06/25/20 24 06/25/2024 CBC W Auto Diffe renti al panel - Blood lymphocytes [#/volume] in blood by automated count 2.09 text: 1.00 - 4.40 x10e9/ L Lymph ocyte Absol [place] 2.09 1.00 - 4.40 x10E9 /L 06/25 11:22 AM CDT [facility] Not Available Not Available 12/24/2024 03:29:51 06/25/20 24 06/25/2024 CBC W Auto Diffe renti al panel - Blood monocytes [#/volume] in blood by automated count 0.29 text: 0.15 - 1.00 x10e9/ L Monoc yte Absol [place] 0.29 0.15 - 1.00 x10E9 /L 06/25 [facility] Not Available Not Available 12/24/2024 03:29:51 06/25/20 24 06/25/2024 CBC W Auto Diffe renti al panel - Blood eosinophils [#/volume] in blood 0.06 text: 0.00 - 0.60 x10e9/ L Eosin ophil Absol [place] 0.06 0.00 - 0.60 x10E9 /L 06/25 11:22 AM [facility] Not Available Not Available 12/24/2024 03:29:51 06/25/20 24 06/25/2024 CBC W Auto Diffe renti al panel - Blood basophils [#/volume] in blood by automated count 0.02 text: 0.00 - 0.13 x10e9/ L Basop hil Absol [place] 0.02 0.00 - 0.13 x10E9 /L 06/25 11:22 AM [facility] Not Available Not Available 12/24/2024 03:29:51 06/25/20 24 06/25/2024 CBC W Auto Diffe renti al panel - Blood interpretati on and review of laboratory results Abnorm al Not Available Not Available 03:29:51 06/25/20 24 06/25/2024 Yuan tin [Mass /volu me] in Serum or Plasm a ferritin [mass/volume ] in serum or plasma by immunoassay 5 NG/mL low: 5NG/mL high: 204NG/ mL Yuan tin 5 5 - 204 ng/mL 06/25 12:06 PM [facility] Not Available Not Available 12/24/2024 03:29:51 06/25/20 24 06/25/2024 Yuan tin [Mass /volu me] in Serum or Plasm a interpretati on and review of laboratory results Normal Not Available Not Available 02/2025 03:29:51 06/25/20 24 06/25/2024 Lipid 1996 panel - Serum or Plasm a cholesterol [mass/volume ] in serum or plasma 179 mg/dL high: 200mg/ dL [place] stero l 179 <200 mg/dL 06/25 11:50 AM [email or web address] [email or web address] Not Available Not Available 12/24/2024 03:29:51 06/25/20 24 06/25/2024 Lipid 1996 panel - Serum or Plasm a triglyceride [mass/volume ] in serum or plasma 107 mg/dL high: 150mg/ dL Trigl yceri trinity 107 <150 mg/dL 06/25 11:50 AM [email or web address] [email or web address] Not Available Not Available 12/24/2024 03:29:51 06/25/20 24 06/25/2024 Lipid 1996 panel - Serum or Plasm a cholesterol in HDL [mass/volume ] in serum or plasma 43 mg/dL low: 40mg/d L HDL [place] stero l 43 >40 mg/dL 06/25 11:50 AM [email or web address] [email or web address] Not Available Not Available 12/24/2024 03:29:51 06/25/20 24 06/25/2024 Lipid 1996 panel - Serum or Plasm a cholesterol. total/choles terol in HDL [mass ratio] in serum or plasma 4.2 low: 1high: 6 Chol HDL Ratio 4.2 1.0 - 6.0 06/25 11:50 AM [email or web address] [email or web address] Not Available Not Available 12/24/2024 03:29:51 06/25/20 24 06/25/2024 Lipid 1996 panel - Serum or Plasm a cholesterol in LDL [mass/volume ] in serum or plasma by calculation 115 mg/dL low: 65mg/d Lhigh: 130mg/ dL LDL Calcu lated 115 65 - 130 mg/dL 06/25 11:50 AM [email or web address] [email or web address] Not Available Not Available 12/24/2024 03:29:51 06/25/20 24 06/25/2024 Lipid 1996 panel - Serum or Plasm a cholesterol in VLDL [mass/volume ] in serum or plasma by calculation 21 mg/dL high: 30mg/d L VLDL Calcu lated 21 <=30 mg/dL 06/25 11:50 AM CDT [facility] Not Available Not Available 12/24/2024 03:29:51 06/25/20 24 06/25/2024 Lipid 1995 panel - Serum or Plasm a Unknown Analyte Lipid Profil e Commen t: CHOLES TEROL LEVEL. ...... ...... .....C LINICA L INTERP RETATI ON LESS THAN 200 MG/DL. ...... ...... ...... ...... .....D ESIRAB LE 200-23 9 MG/DL. ...... ...... ...... ...... .....B ORDERL INE HIGH GREATE R THAN 240 MG/DL. ...... ...... ...... ...... ...... .HIGH LDL-CH OLESTE ROL LEVEL. ...... ...... .CLINI JOSETTE INTERP RETATI ON LESS THAN 100 MG/DL. ...... ...... ...... ...... ...... .OPTIM AL 100-12 9 MG/DL. ...... ...... ...... ...... ...... ..NEAR OPTIMA L GREATE R THAN 160 MG/DL. ...... ...... ...... ...... ..HIGH RISK HDL RISK LEVEL GREATE R THEN 60 MG/DL. ...... ...... ...... ...... ...DEC REASED 40-60 MG/DL. ...... ...... ...... ...... ...... ...... ...AVE RAGE LESS THAN 40 MG/DL. ...... ...... ...... ...... ...... INCREA SED TRIGLY CERIDE LEVEL. ...... ...... .....C LINICA L INTERP RETATI ON LESS THAN 150 MG/DL. ...... ...... ...... ...... ...... DESIRA BLE 150-19 9 MG/DL. ...... ...... ...... ...... ...... BORDER LINE HIGH 200-49 9 MG/DL. ...... ...... ...... ...... ...... ...... .....H IGH GREATE R THAN 500... ...... ...... ...... ...... ...... .VERY HIGH THE NATION AL CHOLES TEROL EDUCAT ION PROGRA M HAS SET THE ABOVE GUIDEL DUNG (REFER ANCE VALUES ) FOR CHOLES TEROL AND HDL. RISK ASSOCI ATED WITH CHOLES TEROL/ HDL RATIOS RISK.. ...... ...... ...... MALE RATIO. ...... ...... FEMALE RATIO 1/2 AVERAG E..... ...... ...... <3.4.. ...... ...... ...... ...<3. 3 LOW RISK.. ...... ...... ...... 4.0 ...... ...... ...... .... 3.8 AVERAG E..... ...... ...... .... 5.0 ...... ...... ...... .... 4.5 2X AVERAG E..... ...... ...... . 9.5 ...... ...... ...... .... 7.0 3X AVERAG E..... ...... ...... ..>23. ...... ...... ...... .....> 11 Lipid Profi le Comme nt: SALINAS STERO L LEVEL ..... ..... ..... ...CL INICA L INTER PRETA TION LESS THAN 200 MG/DL ..... ..... ..... ..... ..... ..... KARTHIKEYAN ABLE 200-2 39 MG/DL ..... ..... ..... ..... ..... ..... BORDE RLINE HIGH GREAT ER THAN 240 MG/DL ..... ..... ..... ..... ..... ..... ..HIG H LDL-C HOLES TEROL LEVEL ..... ..... ....C LINIC AL INTER PRETA TION LESS THAN 100 MG/DL ..... ..... ..... ..... ..... ..... ..OPT IMAL 100-1 29 MG/DL ..... ..... ..... ..... ..... ..... ...NE AR OPTIM AL GREAT ER THAN 160 MG/DL ..... ..... ..... ..... ..... ..HIG H RISK HDL RISK LEVEL GREAT ER THEN 60 MG/DL ..... ..... ..... ..... ..... ...DE CREAS ED 40-60 MG/DL ..... ..... ..... ..... ..... ..... ..... ..... AVERA GE LESS THAN 40 MG/DL ..... ..... ..... ..... ..... ..... .INCR EASED TRIGL YCERI DE LEVEL ..... ..... ..... ...CL INICA L INTER PRETA TION LESS THAN 150 MG/DL ..... ..... ..... ..... ..... ..... .BRIANA RABLE 150-1 99 MG/DL ..... ..... ..... ..... ..... ..... .BORD MARYCARMEN E HIGH 200-4 99 MG/DL ..... ..... ..... ..... ..... ..... ..... ..... ..HIG H GREAT ER THAN 500.. ..... ..... ..... ..... ..... ..... ..DERICK Y HIGH THE NATIO NAL SALINAS STERO L EDUCA TION PROGR AM HAS SET THE ABOVE GUIDE LINES (REFE YOLANDA VALUE S) FOR SALINAS STERO L AND HDL. RISK ASSOC IATED WITH SALINAS STERO L/HDL RATIO S RISK. ..... ..... ..... ....M NELLI RATIO ..... ..... ...FE MALE RATIO 1/2 AVERA GE... ..... ..... ....< 3.4.. ..... ..... ..... ..... .<3.3 LOW RISK. ..... ..... ..... .... 4.0 ..... ..... ..... ..... .. 3.8 AVERA GE... ..... ..... ..... ... 5.0 ..... ..... ..... ..... .. 4.5 2X AVERA GE... ..... ..... ..... 9.5 ..... ..... ..... ..... .. 7.0 3X AVERA GE... ..... ..... ..... .>23. ..... ..... ..... ..... ...>1 1 Not Available Not Available 12/24/2024 03:29:51 06/25/20 24 06/25/2024 Lipid 1996 panel - Serum or Plasm a interpretati on and review of laboratory results Normal Not Available Not Available 02/2025 03:29:51 06/25/20 24 06/25/2024 Magne sium [Mass /volu me] in Serum or Plasm a magnesium [mass/volume ] in serum or plasma 1.9 mg/dL low: 1.6mg/ dLhigh : 2.6mg/ dL Magne sium 1.9 1.6 - 2.6 mg/dL 06/25 11:50 AM CDT [facility] Not Available Not Available 12/24/2024 03:29:51 06/25/20 24 06/25/2024 Magne sium [Mass /volu me] in Serum or Plasm a interpretati on and review of laboratory results Normal Not Available Not Available 02/2025 03:29:51 06/25/20 24 06/25/2024 25-hy droxy vitam in D3 [Mass /volu me] in Serum or Plasm a 25-hydroxyvi tamin D3 [mass/volume ] in serum or plasma 18.5 NG/mL low: 30NG/m Lhigh: 80NG/m L low Vitam in D, 25 [place] xy 18.5 (L) 30 - 80 ng/mL 06/25 2:15 PM CDT [facility] Not Available Not Available 12/24/2024 03:29:51 06/25/20 24 06/25/2024 25-hy droxy vitam in D3 [Mass /volu me] in Serum or Plasm a Unknown Analyte Refere nce Values : The recomm endati on for 25-Hyd miracle Vitami n D clinic al decisi on points are as follow s: Defici ent < 20.0 ng/mL Insuff icient 20.0-2 9.9 ng/mL Suffic ient 30.0-1 00.0 ng/mL Potent ial Toxici ty >100 ng/mL Refere nce: [facility] al Practi ce Guidel dung. 2010 If the 25-Hyd miracle Vitami n D result s are incons istent with clinic al eviden ce, it is recomm ended that follow -up testin g using a method such as LC-MS/ MS be perfor med to confir m the result . Refer ence Value s: The recom menda tion for 25-Hy droxy Vitam in D clini josette decis ion point s are as follo ws: Defic ient < 20.0 ng/mL Insuf ficie nt 20.0- 29.9 ng/mL Suffi cient 30.0- 100.0 ng/mL Poten tial Toxic ity >100 ng/mL Refer ence: The End[facility] r[facility] ty Clini josette Pract ice Guide lines . 2010 If the 25-Hy droxy Vitam in D resul ts are incon siste nt with clini josette evide nce, it is recom myla d that follo w-up testi ng using a metho d such as LC-MS /MS be perfo rmed to confi rm the resul t. Not Available Not Available 12/24/2024 03:29:51 06/25/20 24 06/25/2024 25-hy droxy vitam in D3 [Mass /volu me] in Serum or Plasm a interpretati on and review of laboratory results Abnorm al Not Available Not Available 03:29:51 06/25/20 24 06/25/2024 Cobal maxwell (Diana min B12) [Mass /volu me] in Serum or Plasm a cobalamin (vitamin B12) [mass/volume ] in serum or plasma 677 pg/mL low: 213pg/ mLhigh : 816pg/ mL Vitam in B12 677 213 - 816 pg/mL 06/25 12:19 PM CDT [facility] Not Available Not Available 12/24/2024 03:29:51 06/25/20 24 06/25/2024 Cobal maxwell (Diana min B12) [Mass /volu me] in Serum or Plasm a folate [mass/volume ] in serum or plasma 12.3 NG/mL low: 7NG/mL high: 31.4NG /mL Folat e 12.3 7.0 - 31.4 ng/mL 06/25 12:19 PM CDT [facility] Not Available Not Available 12/24/2024 03:29:51 06/25/20 24 06/25/2024 Cobal maxwell (Diana min B12) [Mass /volu me] in Serum or Plasm a interpretati on and review of laboratory results Normal Not Available Not Available 02/2025 03:29:51 06/25/2006/25/2024 Phosp hate [Mass /volu me] in Serum or Plasm a phosphate [mass/volume ] in serum or plasma 3.07 mg/dL low: 2.3mg/ dLhigh : 4.7mg/ dL Phosp horus 3.07 2.3 - 4.7 mg/dL 06/25 11:50 AM CDT [facility] Not Available Not Available 12/24/2024 03:29:50 06/25/20 24 06/25/2024 Phosp hate [Mass /volu me] in Serum or Plasm a interpretati on and review of laboratory results Normal Not Available Not Available 02/2025 03:29:50 06/25/20 24 06/25/2024 Iron satur ation [Mass Fract ion] in Serum or Plasm a iron [mass/volume ] in serum or plasma 29 ug/dL low: 50ug/d Lhigh: 170ug/ dL low Iron 29 (L) 50 - 170 ug/dL 06/25 11:57 AM CDT [facility] Not Available Not Available 12/24/2024 03:29:50 06/25/20 24 06/25/2024 Iron satur ation [Mass Fract ion] in Serum or Plasm a transferrin [mass/volume ] in serum or plasma 311 mg/dL low: 180mg/ dLhigh : 382mg/ dL Trans yuan n 311 180 - 382 mg/dL 06/25 11:57 AM CDT [facility] Not Available Not Available 12/24/2024 03:29:50 06/25/20 24 06/25/2024 Iron satur ation [Mass Fract ion] in Serum or Plasm a iron binding capacity [mass/volume ] in serum or plasma 389 ug/dL low: 261ug/ dLhigh : 497ug/ dL TIBC Calcu lated 389 261 - 497 ug/dL 06/25 11:57 AM CDT [facility] Not Available Not Available 12/24/2024 03:29:50 06/25/20 24 06/25/2024 Iron satur ation [Mass Fract ion] in Serum or Plasm a iron saturation [mass fraction] in serum or plasma 7 % low: 11%hig h: 45% low Iron Satur ation % 7 (L) 11 - 45 % 06/25 11:57 AM CDT [facility] Not Available Not Available 12/24/2024 03:29:50 06/25/20 24 06/25/2024 Iron satur ation [Mass Fract ion] in Serum or Plasm a interpretati on and review of laboratory results Abnorm al Not Available Not Available 03:29:50 06/25/20 24 06/25/2024 Compr ehens nancy metab olic 1999 panel - Serum or Plasm a glucose [mass/volume ] in serum or plasma 125 mg/dL low: 70mg/d Lhigh: 125mg/ dL Gluco se 125 70 - 125 mg/dL 06/25 11:57 AM CDT [facility] Not Available Not Available 12/24/2024 03:29:42 06/25/20 24 06/25/2024 Compr ehens nancy metab olic 1999 panel - Serum or Plasm a sodium [moles/volum e] in serum or plasma 139 mmol/ L low: 136mmo l/Lhig h: 145mmo l/L Sodiu m 139 136 - 145 mmol/ L 06/25 11:57 AM CDT [facility] Not Available Not Available 12/24/2024 03:29:42 06/25/20 24 06/25/2024 Compr ehens nancy metab olic 1999 panel - Serum or Plasm a potassium [moles/volum e] in serum or plasma 3.9 mmol/ L low: 3.4mmo l/Lhig h: 5.1mmo l/L Potas sium 3.9 3.4 - 5.1 mmol/ L 06/25 11:57 AM CDT [facility] Not Available Not Available 12/24/2024 03:29:42 06/25/20 24 06/25/2024 Compr ehens nancy metab olic 1999 panel - Serum or Plasm a chloride [moles/volum e] in serum or plasma 108 mmol/ L low: 98mmol /Lhigh : 107mmo l/L high Chlor campbell 108 (H) 98 - 107 mmol/ L 06/25 11:57 AM CDT [facility] Not Available Not Available 12/24/2024 03:29:42 06/25/20 24 06/25/2024 Compr ehens nancy metab olic 1999 panel - Serum or Plasm a carbon dioxide, total [moles/volum e] in serum or plasma 23 mmol/ L low: 22mmol /Lhigh : 29mmol /L CO2 23 22 - 29 mmol/ L 06/25 11:57 AM CDT [facility] Not Available Not Available 12/24/2024 03:29:42 06/25/20 24 06/25/2024 Compr ehens nancy metab olic 1999 panel - Serum or Plasm a calcium [mass/volume ] in serum or plasma 9.11 mg/dL low: 8.4mg/ dLhigh : 10.2mg /dL Calci um 9.11 8.4 - 10.2 mg/dL 06/25 11:57 AM CDT [facility] Not Available Not Available 12/24/2024 03:29:42 06/25/20 24 06/25/2024 Compr ehens nancy metab olic 2000 panel - Serum or Plasm a anion gap in blood 8 mmol/ L low: 6mmol/ Lhigh: 16mmol /L Anion Gap 8 6 - 16 mmol/ L 06/25 11:57 AM CDT [facility] Not Available Not Available 12/24/2024 03:29:42 06/25/20 24 06/25/2024 Compr ehens nancy metab olic 1999 panel - Serum or Plasm a urea nitrogen [mass/volume ] in serum or plasma 10.9 mg/dL low: 9.8mg/ dLhigh : 20.1mg /dL BUN 10.9 9.8 - 20.1 mg/dL 06/25 11:57 AM CDT [facility] Not Available Not Available 12/24/2024 03:29:42 06/25/20 24 06/25/2024 Compr [employer] nancy lettrs olic 1999 panel - Serum or Plasm a creatinine [mass/volume ] in serum or plasma 0.52 mg/dL low: 0.57mg /dLhig h: 1.11mg /dL low Creat inine 0.52 (L) 0.57 - 1.11 mg/dL 06/25 11:57 AM CDT [facility] Not Available Not Available 12/24/2024 03:29:42 06/25/20 24 06/25/2024 Compr [employer] nancy metab olic 1999 panel - Serum or Plasm a alkaline phosphatase [enzymatic activity/vol ume] in serum or plasma 108 U/L low: 40U/Lh igh: 150U/L Alkal ine Phosp hatas e 108 40 - 150 U/L 06/25 11:57 AM CDT [facility] Not Available Not Available 12/24/2024 03:29:42 06/25/20 24 06/25/2024 Compr [employer] nancy metab olic 1999 panel - Serum or Plasm a alanine aminotransfe rase [enzymatic activity/vol ume] in serum or plasma 15 U/L high: 55U/L ALT 15 <=55 U/L 06/25 11:57 AM CDT [facility] Not Available Not Available 12/24/2024 03:29:42 06/25/20 24 06/25/2024 Compr [employer] nancy metab olic 1999 panel - Serum or Plasm a aspartate aminotransfe rase [enzymatic activity/vol ume] in serum or plasma 11 U/L low: 5U/Lhi gh: 34U/L AST 11 5 - 34 U/L 06/25 11:57 AM CDT [facility] Not Available Not Available 12/24/2024 03:29:42 06/25/20 24 06/25/2024 Compr [employer] nancy metab olic 1999 panel - Serum or Plasm a protein [mass/volume ] in serum or plasma 7.4 text: 6.4 - 8.3 gm/dL Prote in Total 7.4 6.4 - 8.3 gm/dL 06/25 11:57 AM CDT [facility] Not Available Not Available 12/24/2024 03:29:42 06/25/20 24 06/25/2024 Compr [employer] olic 2000 panel - Serum or Plasm a albumin [mass/volume ] in serum or plasma 3.7 text: 3.4 - 4.8 gm/dL Album in 3.7 3.4 - 4.8 gm/dL 06/25 11:57 AM CDT [facility] Not Available Not Available 12/24/2024 03:29:42 06/25/20 24 06/25/2024 Compr [employer] nancy lettrs olic 2000 panel - Serum or Plasm a globulin [mass/volume ] in urine by calculation 3.7 text: 2.6 - 4.0 gm/dL Globu nolan Total 3.7 2.6 - 4.0 gm/dL 06/25 11:57 AM CDT [facility] Not Available Not Available 12/24/2024 03:29:42 06/25/20 24 06/25/2024 Compr [employer] [facility] olic 2000 panel - Serum or Plasm a albumin/glob ulin [mass ratio] in serum or plasma 1 low: 0.9hig h: 1.6 Album in/Gl obuli n Ratio 1.0 0.9 - 1.6 06/25 11:57 AM CDT [facility] Not Available Not Available 12/24/2024 03:29:42 06/25/20 24 06/25/2024 Compr [employer] [facility] olic 2000 panel - Serum or Plasm a bilirubin.to clem [mass/volume ] in serum or plasma 0.4 mg/dL low: 0.2mg/ dLhigh : 1.2mg/ dL Bilir ubin Total 0.4 0.2 - 1.2 mg/dL 06/25 11:57 AM CDT [facility] Not Available Not Available 12/24/2024 03:29:42 06/25/20 24 06/25/2024 Compr ehens nancy metab olic 2000 panel - Serum or Plasm a glomerular filtration rate/1.73 sq M.predicted [volume rate/area] in serum, plasma or blood by creatinine-b ased formula (CKD-epi) text: >90 mL/min /1.73m 2 eGFR >90 >90 mL/mi n/1.7 3m2 06/25 11:57 AM CDT [facility] Not Available Not Available 12/24/2024 03:29:42 06/25/20 24 06/25/2024 Compr ehens nancy metab olic 2000 panel - Serum or Plasm a interpretati on and review of laboratory results Abnorm al Not Available Not Available 03:29:42 12/25/19 25 12/25/2024 LIPID PANEL WITH LDL/H DL RATIO cholesterol, total 197 mg/dL 100-19 9 Not Available [facility] Department [address] [place] [address], [address], 12/25/2024 23:08:38 12/25/19 25 12/25/2024 LIPID PANEL WITH LDL/H DL RATIO triglyceride s 186 mg/dL 0-149 above high normal Not Available [facility] [address] [place], [address], 12/25/2024 23:08:38 12/25/19 25 12/25/2024 LIPID PANEL WITH LDL/H DL RATIO HDL cholesterol 52 mg/dL 40-999 Not Available [facility] Department [address] [place], [address], 12/25/2024 23:08:38 12/25/19 25 12/25/2024 LIPID PANEL WITH LDL/H DL RATIO VLDL cholesterol josette 37 mg/dL 5-40 Not Available [facility] Department [address] [place], [address], 12/25/2024 23:08:38 12/25/19 25 12/25/2024 LIPID PANEL WITH LDL/H DL RATIO LDL chol calc ([facility]) 135 mg/dL 0-99 above high normal Not Available [facility] Department [address] [place], [address], 12/25/2024 23:08:38 12/25/19 25 12/25/2024 LIPID PANEL WITH LDL/H DL RATIO LDL/HDL ratio 2.6 0-3.2 Not Available [facility] Department [address] [place], [address], 12/25/2024 23:08:38 12/25/19 25 12/25/2024 COMP. METAB OLIC PANEL (14) glucose 91 mg/dL 70-99 Not Available [facility] Department [address] [place], [address], 12/25/2024 23:08:38 12/25/19 25 12/25/2024 COMP. METAB OLIC PANEL (14) BUN 18 mg/dL 6-20 Not Available [facility] Department [address] [place] [address], [address], 12/25/2024 23:08:38 12/25/19 25 12/25/2024 COMP. METAB OLIC PANEL (14) creatinine 0.53 mg/dL 0.76-1 .27 below low normal Not Available [facility] Department [address] [place], [address], 12/25/2024 23:08:38 12/25/19 25 12/25/2024 COMP. METAB OLIC PANEL (14) eGFR 122 >=60 Units for eGFR value s are mL/mi n/1.7 3 The eGFR Calcu latio n has not been valid ated for patie nts under the age of 18. If test resul ts are displ ayed for a patie nt under the age of 18, disre karuna that value . Not Available [facility] Department [address] [place], [address], 12/25/2024 23:08:38 12/25/19 25 12/25/2024 COMP. METAB OLIC PANEL (14) BUN/creatini ne ratio 35 9-23 above high normal Not Available [facility] Department [address] [place], [address], 12/25/2024 23:08:38 12/25/19 25 12/25/2024 COMP. METAB OLIC PANEL (14) sodium 144 mmol/ L 134-14 4 Not Available [facility] Department [address] [place] [address], [address], 12/25/2024 23:08:38 12/25/19 25 12/25/2024 COMP. METAB OLIC PANEL (14) potassium 4.0 mmol/ L 3.5-5. 2 Not Available [facility] Department [address] [place] [address], [address], 12/25/2024 23:08:38 12/25/19 25 12/25/2024 COMP. METAB OLIC PANEL (14) chloride 107 mmol/ L 96-106 above high normal Not Available [facility] Department [address] [place] [address], [address], 12/25/2024 23:08:38 12/25/19 25 12/25/2024 COMP. METAB OLIC PANEL (14) carbon dioxide, total 25 mmol/ L 20-29 Not Available [facility] Department [address] [place] [address], [address], 12/25/2024 23:08:38 12/25/19 25 12/25/2024 COMP. METAB OLIC PANEL (14) calcium 9.3 mg/dL 8.7-10 .2 Not Available [facility] Department [address] [place] [address], [address], 12/25/2024 23:08:38 12/25/19 25 12/25/2024 COMP. METAB OLIC PANEL (14) protein, total 7.4 g/dL 6.0-8. 5 Not Available [facility] Department [address] [place] [address], [address], 12/25/2024 23:08:38 12/25/19 25 12/25/2024 COMP. METAB OLIC PANEL (14) albumin 4.4 g/dL 3.9-4. 9 Not Available [facility] Department [address] [place] [address], [address], 12/25/2024 23:08:38 12/25/19 25 12/25/2024 COMP. METAB OLIC PANEL (14) globulin, total 3.0 g/dL 1.5-4. 5 Not Available [facility] Department [address] [place], [address], 12/25/2024 23:08:38 12/25/19 25 12/25/2024 COMP. METAB OLIC PANEL (14) A/G ratio 1.0 1.2-2. 2 below low normal Not Available [facility] Department [address] [place] [address], [address], 12/25/2024 23:08:38 12/25/19 25 12/25/2024 COMP. METAB OLIC PANEL (14) bilirubin, total 0.2 mg/dL 0.0-1. 2 Not Available [facility] Department [address] [place] [address], [address], 12/25/2024 23:08:38 12/25/19 25 12/25/2024 COMP. METAB OLIC PANEL (14) alkaline phosphatase 127 IU/L 44-121 above high normal Not Available [facility] Department [address] [place] [address], [address], 12/25/2024 23:08:38 12/25/19 25 12/25/2024 COMP. METAB OLIC PANEL (14) AST (SGOT) 10 IU/L 0-40 Not Available [facility] Department [address] [place] [address], [address], 12/25/2024 23:08:38 12/25/19 25 12/25/2024 COMP. METAB OLIC PANEL (14) ALT (SGPT) 12 IU/L 0-32 Not Available [facility] Department [address] [place] [address], [address], 12/25/2024 23:08:38 12/25/19 25 12/25/2024 CBC WITH DIFFE RENTI AL/PL ATELE T WBC 7.1 x10e3 /uL 3.4-10 .8 Not Available [facility] Department [address] [place], [address], 12/25/2024 23:08:40 12/25/19 25 12/25/2024 CBC WITH DIFFE RENTI AL/PL ATELE T RBC 4.48 x10e6 /uL 3.77-5 .28 Not Available [facility] Department [address] [place], [address], 12/25/2024 23:08:40 12/25/19 25 12/25/2024 CBC WITH DIFFE RENTI AL/PL ATELE T hemoglobin 10.2 g/dL 11.1-1 5.9 below low normal Not Available [facility] [address] [facility], [place], [address], 12/25/2024 23:08:40 12/25/19 25 12/25/2024 CBC WITH DIFFE RENTI AL/PL ATELE T hematocrit 36.5 % 34.0-4 6.6 Not Available [facility] [address] [place], [address], 12/25/2024 23:08:40 12/25/19 25 12/25/2024 CBC WITH DIFFE RENTI AL/PL ATELE T MCV 82 fL 79-97 Not Available [facility] Department [address] [place], [address], 12/25/2024 23:08:40 12/25/19 25 12/25/2024 CBC WITH DIFFE RENTI AL/PL ATELE T MCH 22.8 pg 26.6-3 3.0 below low normal Not Available [facility] Department [address] [place], [address], 12/25/2024 23:08:40 12/25/19 25 12/25/2024 CBC WITH DIFFE RENTI AL/PL ATELE T MCHC 27.9 g/dL 31.5-3 5.7 below low normal Not Available [facility] Department [address] [place], [address], 12/25/2024 23:08:40 12/25/19 25 12/25/2024 CBC WITH DIFFE RENTI AL/PL ATELE T RDW 16.6 % 11.5-1 4.5 above high normal Not Available [facility] [address] [place], [address], 12/25/2024 23:08:40 12/25/19 25 12/25/2024 CBC WITH DIFFE RENTI AL/PL ATELE T platelets 409 x10e3 /uL 150-45 0 Not Available [facility] Department [address] [place], [address], 12/25/2024 23:08:40 12/25/19 25 12/25/2024 CBC WITH DIFFE RENTI AL/PL ATELE T neutrophils 59 % notest b. Not Available [facility] [address] [place], [address], 12/25/2024 23:08:40 12/25/19 25 12/25/2024 CBC WITH DIFFE RENTI AL/PL ATELE T lymphs 34 % notest b. Not Available [facility] Department [address] [place], [address], 12/25/2024 23:08:40 12/25/19 25 12/25/2024 CBC WITH DIFFE RENTI AL/PL ATELE T monocytes 6 % notest b. Not Available [facility] [address] [place], [address], 12/25/2024 23:08:40 12/25/19 25 12/25/2024 CBC WITH DIFFE RENTI AL/PL ATELE T eos 1 % notest b. Not Available [facility] Department [address] [place], [address], 12/25/2024 23:08:40 12/25/19 25 12/25/2024 CBC WITH DIFFE RENTI AL/PL ATELE T basos 0 % notest b. Not Available [facility] Department [address] [place], [address], 12/25/2024 23:08:40 12/25/19 25 12/25/2024 CBC WITH DIFFE RENTI AL/PL ATELE T neutrophils (absolute) 4.1 x10e3 /uL 1.4-7. 0 Not Available [facility] Department [address] [place], [address], 12/25/2024 23:08:40 12/25/19 25 12/25/2024 CBC WITH DIFFE RENTI AL/PL ATELE T lymphs (absolute) 2.4 x10e3 /uL 0.7-3. 1 Not Available [facility] Department [address] [place], [address], 12/25/2024 23:08:40 12/25/19 25 12/25/2024 CBC WITH DIFFE RENTI AL/PL ATELE T monocytes(ab solute) 0.4 x10e3 /uL 0.1-0. 9 Not Available [facility] Department [address] [place], [address], 12/25/2024 23:08:40 12/25/19 25 12/25/2024 CBC WITH DIFFE RENTI AL/PL ATELE T eos (absolute) 0.1 x10e3 /uL 0.0-0. 4 Not Available [facility] Department [address] [place], [address], 12/25/2024 23:08:40 12/25/19 25 12/25/2024 CBC WITH DIFFE RENTI AL/PL ATELE T baso (absolute) 0.0 x10e3 /uL 0.0-0. 2 Not Available [facility] Department [address] [place], [address], 12/25/2024 23:08:40 12/25/19 25 12/25/2024 CBC WITH DIFFE RENTI AL/PL ATELE T immature granulocytes 0.4 % notest b. Not Available [facility] Department [address] [place], [address], 12/25/2024 23:08:40 12/25/19 25 12/25/2024 CBC WITH DIFFE RENTI AL/PL ATELE T immature grans (abs) 0.0 x10e3 /uL 0.0-0. 1 Not Available [facility] Department [address] [place], [address], 12/25/2024 23:08:40 12/25/19 25 12/25/2024 CBC WITH DIFFE RENTI AL/PL ATELE T NRBC 0 % 0-0 Not Available [facility] Department [address] [place], [address], 12/25/2024 23:08:40 12/25/19 25 12/26/2024 TSH+F REE T4 TSH 0.687 uIU/m L 0.450- 4.500 Not Available [facility] ([facility]) [address] [place], [address], 12/26/2024 08:29:21 12/25/19 25 12/26/2024 TSH+F REE T4 T4,free(dire ct) 1.19 NG/dL 0.82-1 .77 Not Available [facility] ([facility]) [address] [place], [address], 12/26/2024 08:29:21 12/25/19 25 12/26/2024 VITAM IN B12 AND FOLAT E vitamin B12 534 pg/mL 232-12 45 Not Available [facility] ([facility]) [address] [place], [address], 12/26/2024 08:29:22 12/25/19 25 12/26/2024 VITAM IN B12 AND FOLAT E folate (folic acid), serum 7.1 NG/mL >3.0 A serum folat e kizzy ntrat ion of less than 3.1 ng/mL is consi dered to repre sent clini josette defic iency . Not Available [facility] ([facility]) [address] [facility], [place], [address], 12/26/2024 08:29:22 12/25/19 25 12/26/2024 HEMOG LOBIN A1C hemoglobin A1C 6.8 % 4.8-5. 6 above high normal Predi abete s: 5.7 - 6.4 Diabe ting: >6.4 Glyce rene contr ol for adult s with diabe ting: <7.0 Not Available [facility] ([facility]) [address] [facility], [place], [address], 12/26/2024 08:29:23 12/25/19 25 12/26/2024 VITAM IN D, 25-HY DROXY vitamin D, 25-hydroxy 14.3 NG/mL 30.0-1 00.0 below low normal Vitam in D defic iency has been defin ed by the Insti tute of Medic ine and an Endoc rine Socie ty pract ice guide line as a level of serum 25-OH vitam in D less than 20 ng/mL (1,2) . The Endoc rine Socie ty went on to furth er defin e vitam in D insuf ficie ncy as a level betwe en 21 and 29 ng/mL (2). 1. IOM (Inst itute of Medic ine). 2010. Dieta ry refer ence alyssa es for calci um and D. Skylar villanueva DC: The Natio nal [facility] Press . 2. Rodrigue alfaro MF, Rico ey [place], Renate off-F errar i PATIÑO, et al. Evalu ation , treat ment, and preve ntion of vitam in D defic iency : an Endoc rine Socie ty clini josette pract ice guide line. JCEM. 2010; 96(7) :1911 -30. Not Available [facility] ([facility]) [address], [place], [address], 12/26/2024 08:29:24 10/03/20 16 04/10/2014 US, obste tric, 1st trime ster No observ ation record ed. [email or web address] Not Available 2015 14:04:21 01/02/20 17 01/01/2017 US, pelvi s, trans abdom inal + trans vagin al No observ ation record ed. [facility] ([facility]) [address], [place], [address], 01/03/2017 14:47:49 01/10/20 17 US, obste tric No observ ation record ed. [email or web address] Not Available 2016 16:26:42 Result Notes None recorded. Problems Name Problem SNOMED Code Status Onset Date Resolution Date Notes Provider Name and Address Organization Details Recorded Time Atypical squamous cells of undetermi yareli significa nce on cervical Papanicol aou smear 001312159 [place] MARCELLUS [place] [facility] 15:03:46 Diabetes mellitus 72407699 [place] [facility] 15:03:46 Essential hypertens ion 54568236 [place] 15:03:46 Morbid obesity 756339002 [place] 15:03:46 Furuncle 614538372 [place] 15:03:46 Removal of subcutane ous contracep tive done 198052121463 100 [place] 15:03:46 Hemorrhoi ds 45306231 [place] [facility] 15:50:33 Polycysti c ovaries Active Benji Bedoya null, [facility] 6 15:50:33 Candidias is of vagina 72195377 Active Satinder Chou RN null, [facility] 6 15:36:39 [id number] Completed 201511/01/2016 Mango Bustamante null, [place] - [facility] 7 13:42:06 Problem Notes None recorded. Procedures Surgical History Date Name Laterality Status Provider Name and Address Organization Details Recorded Time 07/22/20 24 Date of Last Pap Smear completed Suraj Gómez MA [place] - [facility] 12/24/2024 14:17:09 10/22/19 21 bypass of stomach completed LIAT SPEARS Attn: Accounting, [address] [place], [address], [facility] 12/24/2024 14:55:27 04/17/20 16 Control Implant Removal completed Mackenzie Fernandez MA [place] - [facility] 04/28/2016 12:57:36 07/02/20 15 Control Implant Insertion completed Benji Bedoya [facility] 07/06/2015 13:29:07 07/02/20 15 IUD Removal completed Benji Bedoya [facility] 07/06/2015 13:29:07 11/22/19 15 Cholecystectomy completed Mackenzie Fernandez MA [facility] 05/20/2015 12:16:29 11/10/19 15 Caesarean Section completed Mackenzie Fernandez MA [facility] 05/20/2015 12:15:51 Screening pap smear by phys completed Andry Martinez MA [facility] 07/23/2015 12:20:00 Imaging Results None recorded. Procedure Notes None recorded. Medical Equipment None Reported. Allergies No known drug allergies Medications Name Sig Start Date Stop Date Status Note LastModified by Organization Details LastModified Time Prometrium 200 mg capsule Take 1 capsule every day by oral route as directed for 12 days. 03/13 completed Not Available Not Available Not Available metformin 500 mg tablet 500 MG ORALLY TWICE A DAY 12/24 completed Not Available Not Available Not Available atorvastati n 20 mg tablet Take 1 tablet every day by oral route at bedtime for 90 days. 2024 active Not Available Not Available Not Avai lable tizanidine 2 mg tablet PLEASE SEE ATTACHED FOR DETAILED DIRECTION S 12/24 completed Not Available Not Available Not Available ofloxacin 0.3 % eye drops PLEASE SEE ATTACHED FOR DETAILED DIRECTION S 03/13 completed Not Available Not Available Not Available tizanidine 4 mg tablet TAKE 1 TABLET BY MOUTH EVERY DAY AT BEDTIME FOR 30 DAYS active Not Available Not Available No t Available fluconazole 150 mg tablet Take 1 tablet by oral route as directed for 1 day. 12/24 completed Not Available Not Available Not Available valacyclovi r 1 gram tablet TAKE 1 TABLET BY MOUTH EVERY DAY 03/13 completed Not Available Not Available Not Available enalapril maleate 20 mg tablet Take 1 tablet every day by oral route for 30 days. 10/04 completed Not Available Not Available Not Available sucralfate 1 gram tablet TAKE 1 TABLET BY MOUTH 4 TIMES DAILY - BEFORE MEALS & NIGHTLY 03/13 completed Not Available Not Available Not Available polysacchar campbell iron complex 150 mg iron capsule TAKE 1 CAPSULE BY MOUTH EVERY DAY 03/13 completed Not Available Not Available Not Available spironolact one 100 mg tablet TAKE 1 TABLET BY MOUTH EVERY DAY 12/24 completed Not Available Not Available Not Available sertraline 100 mg tablet TAKE 1 TABLET BY MOUTH EVERYDAY AT BEDTIME active Not Available Not Available No t Available terconazole 0.8 % vaginal cream INSERT 1 APPLICATO R(S)FUL EVERY DAY BY VAGINAL ROUTE AT BEDTIME FOR 3 DAYS. 03/13 completed Not Available Not Available Not Available Anucort-HC 25 mg suppository 12/24 completed Not Available Not Available Not Available penicillin V potassium 500 mg tablet Take 1 tablet twice a day by oral route for 10 days. 03/13 completed Not Available Not Available Not Available nifedipine ER 30 mg tablet,exte nded release TAKE 1 TABLET BY MOUTH DAILY 03/13 completed Not Available Not Available Not Available sulfamethox azole 800 mg-trimetho prim 160 mg tablet Take 1 tablet every 12 hours by oral route as directed for 30 days. 10/04 completed Not Available Not Available Not Available omeprazole 40 mg capsule,del ayed release TAKE 1 CAPSULE EVERY DAY BY ORAL ROUTE DIRECTED FOR 30 DAYS, FOR ACID REFLUX. active Not Available Not Available No t Available aspirin 81 mg tablet,kassandra yed release TAKE 2 TABLETS BY MOUTH DAILY 12/24 completed Not Available Not Available Not Available spironolact one 25 mg tablet TAKE 1 TABLET BY MOUTH EVERY DAY 12/24 completed Not Available Not Available Not Available Vitamin tablet Take 1 tablet every day by oral route as directed for 90 days. 03/13 completed Not Available Not Available Not Available magnesium oxide 400 mg (241.3 mg magnesium) tablet TAKE 1 TABLET BY MOUTH EVERY DAY 12/24 completed Not Available Not Available Not Available metoclopram campbell 5 mg tablet Take 1 tablet 4 times a day by oral route. 03/13 completed Not Available Not Available Not Available dicyclomine 20 mg tablet TAKE 1 TABLET BY MOUTH 3 TIMES A DAY NEEDED FOR STOMACH PAIN 12/24 completed Not Available Not Available Not Available ciprofloxac in 0.3 % eye drops ADMINISTE R 2 DROPS INTO BOTH EYES EVERY 4 (FOUR) HOURS FOR 7 DAYS 12/24 completed Not Available Not Available Not Available pantoprazol e 40 mg tablet,kassandra yed release TAKE 1 TABLET BY MOUTH TWICE A DAY 03/13 completed Not Available Not Available Not Available cyanocobala min (vit B-12) 1,000 mcg/mL injection solution INJECT 1 ML SUBCUTANE OUSLY ONCE WEEKLY IN THE MORNING 12/24 completed Not Available Not Available Not Available metformin 1,000 mg tablet Take 1 tablet twice a day by oral route for 30 days. 03/13 completed Not Available Not Available Not Available Qvar 40 mcg/actuati on Metered Aerosol oral inhaler Inhale 2 puffs twice a day by inhalatio n route. 03/13 completed Not Available Not Available Not Available docusate sodium 100 mg capsule TAKE 1 CAPSULE BY MOUTH TWICE A DAY FOR CONSTIPAT ION 12/24 completed Not Available Not Available Not Available methyldopa 500 mg tablet Take 1 tablet twice a day by oral route. 03/13 completed Not Available Not Available Not Available omeprazole 20 mg capsule,del ayed release Take 1 capsule twice a day by oral route. 12/31 completed Not Available Not Available Not Available hydroxyzine HCl 25 mg tablet TAKE 1 TABLET BY MOUTH THREE TIMES A DAY NEEDED FOR ANXIETY active Not Available Not Available No t Available alcohol swabs USE DIRECTED/ 2016 active Not Available Not Available Not Avai lable ergocalcife rol (vitamin D2) 1,250 mcg (50,000 unit) capsule TAKE 1 CAPSULE BY MOUTH ONCE EVERY 7 DAYS 12/24 completed Not Available Not Available Not Available albuterol sulfate HFA 90 mcg/actuati on aerosol inhaler INHALE 2 PUFFS BY MOUTH TWICE A DAY DIRECTED FOR 30 DAYS, FOR ASTHMA. active Not Available Not Available No t Available drospirenon e 3 mg-ethinyl estradiol 0.03 mg tablet TAKE 1 TABLET BY MOUTH EVERY DAY 12/24 completed Not Available Not Available Not Available dicyclomine 10 mg capsule Take 1 capsule 3 times a day by oral route as needed. 12/24 completed Not Available Not Available Not Available amoxicillin 875 mg-potassiu m clavulanate 125 mg tablet TAKE 1 TABLET BY MOUTH TWICE A DAY FOR 7 DAYS 12/24 completed Not Available Not Available Not Available tobramycin 0.3 %-dexametha sone 0.1 % eye drops,suspe nsion 12/24 completed Not Available Not Available Not Available insulin lispro (U-100) 100 unit/mL subcutaneou s pen PLEASE SEE ATTACHED FOR DETAILED DIRECTION S 12/24 completed Not Available Not Available Not Available Sprintec (28) 0.25 mg-0.035 mg tablet Take 1 tablet every day by oral route as directed for 28 days. 10/04 completed Not Available Not Available Not Available rosuvastati n 10 mg tablet TAKE 1 TABLET BY MOUTH EVERY DAY 03/13 completed Not Available Not Available Not Available rosuvastati n 20 mg tablet TAKE 1 TABLET BY MOUTH EVERY DAY 12/24 completed Not Available Not Available Not Available rosuvastati n 40 mg tablet TAKE 1 TABLET BY MOUTH EVERY DAY 12/24 completed Not Available Not Available Not Available nitrofurant oin monohydrate /macrocryst als 100 mg capsule TAKE 1 CAPSULE BY MOUTH EVERY 12 HOURS WITH A MEAL/FOOD X3 DAYS 12/24 completed Not Available Not Available Not Available Januvia 25 mg tablet Take 1 tablet twice a day by oral route. 12/24 completed Not Available Not Available Not Available Januvia 50 mg tablet TAKE 1 TABLET EVERY DAY BY MOUTH FOR DIABETES 12/24 completed Not Available Not Available Not Available Lantus Solostar U-100 Insulin 100 unit/mL (3 mL) subcutaneou s pen PLEASE SEE ATTACHED FOR DETAILED DIRECTION S 12/24 completed Not Available Not Available Not Available Trueresult Blood Glucose System kit 12/24 completed Not Available Not Available Not Available Livalo 1 mg tablet take 1 tablet everyday at bedtime for 90 days 2024 active Not Available Not Available Not Avai lable Nexplanon 68 mg subdermal implant Inject 1 implant by subcutane ous route. 12/24 completed Not Available Not Available Not Available OneTouch Verio test strips USE TO TEST 4 TIMES A DAY 12/24 completed Not Available Not Available Not Available calcium 600 mg (as carbonate)- vitamin D3 20 mcg (800 unit) tablet Take 1 tablet twice a day by oral route for 30 days. 12/24 completed Not Available Not Available Not Available Nesina 25 mg tablet TAKE 1 TABLET BY MOUTH EVERY DAY CHENCHO DIABETES 03/13 completed Not Available Not Available Not Available Safety Seal Lancets 28 gauge 12/24 completed Not Available Not Available Not Available Jardiance 25 mg tablet TAKE 1 TABLET BY MOUTH EVERY DAY active Not Available Not Available No t Available Trulicity 1.5 mg/0.5 mL subcutaneou s pen injector INJECT 1.5MG UNDER THE SKIN ONCE WEEKLY AT DINNER FOR 90 DAYS 03/13 completed Not Available Not Available Not Available Trulicity 0.75 mg/0.5 mL subcutaneou s pen injector INJECT THE CONTENTS OF 1 PEN UNDER THE SKIN AT DINNER ONCE EVERY 7 DAYS 03/13 completed Not Available Not Available Not Available Nighttime Sleep-Aid (doxylamine ) 25 mg tablet TAKE 1 TABLET BY MOUTH EVERYDAY AT BEDTIME 03/13 completed Not Available Not Available Not Available Vol-Plus 27 mg iron-1 mg tablet 12/24 completed Not Available Not Available Not Available TRUEplus Pen Needle 31 gauge x 3/16 USE TO INJECT 4 TIMES A DAY 12/24 completed Not Available Not Available Not Available Dexcom G6 Transmitter device CHANGE EVERY 90 DAYS 12/24 completed Not Available Not Available Not Available Se-Faraz 19 29 mg iron-1 mg tablet TAKE 1 TABLET BY MOUTH EVERY DAY 12/24 completed Not Available Not Available Not Available Mounjaro 7.5 mg/0.5 mL subcutaneou s pen injector INJECT THE CONTENTS OF 1 PEN UNDER THE SKIN ONCE WEEKLY 12/24 completed Not Available Not Available Not Available Mounjaro 5 mg/0.5 mL subcutaneou s pen injector INJECT 5 MG (0.5 ML) SUBCUTANE OUSLY WEEKLY 12/24 completed Not Available Not Available Not Available Mounjaro 10 mg/0.5 mL subcutaneou s pen injector INJECT 10 MG (0.5 ML) SUBCUTANE OUSLY WEEKLY FOR 3 MONTHS FOR 4 WEEKS 12/24 completed Not Available Not Available Not Available Mounjaro 12.5 mg/0.5 mL subcutaneou s pen injector INJECT 12.5 MG SUBCUTANE OUSLY WEEKLY FOR 3 MONTH active Not Available Not Available No t Available Mounjaro 2.5 mg/0.5 mL subcutaneou s pen injector INJECT 2.5 MG (0.5 ML) SUBCUTANE OUSLY WEEKLY FOR 4 WEEKS 03/13 completed Not Available Not Available Not Available Dexcom G7 Sensor device active Not Available Not Available Not Available Klayesta 100,000 unit/gram topical powder APPLY 1 APPLICATI ON ONTO THE AFFECTED AREA(S) ON THE SKIN TWICE DAILY 12/24 completed Not Available Not Available Not Available Vitals Date Recorded Body weight Provider Name an d Address Organization Details Last Updated DateTime 11/01/2016 642084.85686 g Mango Bustamante [facility] 2016 13:42:03 Date Recorded Body height Provider Name an d Address Organization Details Last Updated DateTime 11/01/2016 157.48 cm Fallon Clifton [facility] 11/01 12:39:19 Date Recorded Systolic And Diastolic Provider Name and Address Organization Details Last Updated DateTime 12/24/2024 110/70 mm[Hg] LIAT PSEARS Attn: Accounting,[address] [facility], [place], [address], [facility] 12/24/2024 16:30:00 Date Recorded Body height Body mass index (BMI) Body weight Oxygen saturation Oxygen saturation in Arterial blood by Pulse oximetry Heart rate Respiratory rate Systolic And Diastolic Provider Name and Address Organization Details Last Updated DateTime 160.02 cm 36 kg/m2 80010.2 5 g 97 % 97 % 92 /min 16 /min 146/92 mm[Hg] Suraj Gómez MA [facility] 14:14:09 Date Recorded Body height Body mass index (BMI) Body weight Systolic And Diastolic Provider Name and Address Organization Details Last Updated DateTime 07/17/2016 157.48 cm 46.5 kg/m2 703614.46 198 g 126/82 mm[Hg] Jaylene Granger [facility] 07/17/2016 15:12:45 Date Recorded Body height Body mass index (BMI) Provider Name and Address Organization Details Last Updated DateTime 10/04/2016 157.48 cm 46.6 kg/m2 Mackenzie Fernandez MA [facility] 10/04/2016 16:46:56 Date Recorded Body weight Provider Name an d Address Organization Details Last Updated DateTime 10/04/2016 756548.17757 thelma Sondra Smith [facility] 016 16:55:32 Date Recorded Body height Body mass index (BMI) Systolic And Diastolic Provider Name and Address Organization Details Last Updated DateTime 10/20/2016 157.48 cm 47 kg/m2 122/82 mm[Hg] Mackenzie Fernandez MA [facility] 10/20/2016 11:40:35 Date Recorded Body weight Provider Name an d Address Organization Details Last Updated DateTime 10/20/2016 658214.07513 g Fallon Clifton [facility] 11/01/2016 12:32:11 Social History Question Answer Notes LastModified by Organizat ion Details LastModified Time Tobacco Smoking Status Former Smoker only vapes Suraj Gómez MA null, [facility] 12/24/2024 14:17:52 Do You Have An Advance Directive? No [id number] Information not available 08/24/2020 If You Are , What Was Your Level Of Alcohol Consumption Prior To ? Occasional [id number] Information not available 08/24/2020 Is Blood Transfusion Acceptable In An Emergency? Yes [id number] Information not available 08/24/2020 What Is Your Level Of Caffeine Consumption? Heavy [id number] Information not available 08/24/2020 Live With Cats/exposure To Cat Litter No Information not available 10/04/2016 How Much Tobacco Do You Chew? None [id number] Information not available 08/24/2020 What Type Of Diet Are You Following? REGULAR [id number] Information not available 08/24/2020 Which Illicit Or Recreational Drugs Have You Used? Patient Denies [id number] Information not available 08/24/2020 Education 12 Information no t available 05/20/2015 Have There Been Any Changes To Your Family Or Social Situation? No [id number] Information not available 08/24/2020 Frequent Air Travel No Information not available 10/04/2016 Illicit Drugs Pre- None Information not available 10/04/2016 How Many Years Have You Used Illicit Or Recreational Drugs? 0 [id number] Information not available 08/24/2020 Live Alone Or With Others? With Others Information not available 05/20/2015 What Was The Date Of Your Most Recent Tobacco Screening? 12/24/2024 [email or web address] Information not available 12/24/2024 How Many Children Do You Have? 1 [id number] Information not available 08/24/2020 Performs Monthly Self-breast Exam? No Information not available 05/20/2015 Do You Use Protection During Sex? No [id number] Information not available 08/24/2020 What Is Your Relationship Status? [id number] Information not available 08/24/2020 Seat Belts Used Routinely Yes Information not available 05/20/2015 Are You Sexually Active? Yes [id number] Information not available 08/24/2020 Do You Have Smoke And Carbon Monoxide Detectors In Your Home? Yes [id number] Information not available 08/24/2020 Are You Passively Exposed To Smoke? No Information not available 10/04/2016 General Stress Level Medium Information not available 05/20/2015 Do You Use Sunscreen Routinely? No [id number] Information not available 08/24/2020 Supplements None [email or web address] Information n ot available 10/04/2016 Sex: Unknown Functional Status Question Answer Note LastModified by Organizat ion Details LastModified Time Do you use any illicit or recreational drugs? Yes marijuana [email or web address] Information not available 12/24/2024 Do you or have you ever used any other forms of tobacco or nicotine? Yes [email or web address] Information not available 12/24/2024 What is your level of alcohol consumption? Occasional [id number] Information not available 08/24/2020 Are you currently employed? 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 Current user of electronic cigarettes [email or web address] Information not available 12/24/2024 What is your exercise level? None [id number] Information not available 08/24/2020 Mental Status None recorded. Family History Relationship Description Onset Age of this Age Resolved Age Notes LastModified by Organization Details LastModified Time Maternal Aunt History of carcinosarco ma of ovary 2 aunts on mother s side [email or web address] Not available 07/17/2016 15:03:47 Mother Depressive disorder [email or web address] Not available 2015 15:03:47 Mother Diabetes mellitus [email or web address] Not available 2015 15:03:47 Mother Kidney disease [email or web address] Not available 2015 15:03:47 Father Diabetes mellitus [email or web address] Not available 2015 15:03:47 Father Hypertensive disorder [email or web address] Not available 2015 15:03:47 Sister Asthma [email or web address] Not available 15:03:47 Brother Asthma [email or web address] Not available 0 07/17/2016 15:03:47 Notes:Mother (Ovarian Cancer ) Medical History Condition Response Coronary Artery Disease N Blood Diseases N Kidney Cyst N Hyperthyroidism N Blood disorders N MRSA N Blood Transfusion N Emphysema N Depression N COPD N Blood Clots N Pneumonia N Premature N Peripheral Arterial Disease N Edema N TIA N Headaches/Migraines N Anxiety Disorder Y Obesity N Polyps N Infertility N Acid Reflux (GERD) N Hematuria N Stroke N Neck Injury N Polio N Hospital Admission other than N Neurologic Disorder N Other Sleep Disorders N Rheumatoid Arthritis N Fibromyalgia N Abdominal Aortic Aneurysm Repair N Kidney Disease N Heart Conditions N Heart Disease/Heart Problems N Hospitalizations N Brain Tumors N Acne N Skin Problems N Eating Disorder N Meningitis N Constipation N Tuberculosis N Cerebral Palsy N Myocardial Infarction N Asthma Y Substance Abuse N Peripheral Vascular Disease N Vertigo N Sleep Disorder N Cirrhosis N Pulmonary Embolism N Chicken Pox N Hematologic Disease N Flomax Use Past or Present N Anxiety/Depression N Thyroid Disease N Colon Cancer N Lung Disease N Glaucoma N Developmental or Behavioral Disorders N Bipolar N Pacemaker N Diverticulitis/Diverticulosis N Orthopedic Problems N Anesthesia Complications N Orthotics N Head Injury/Concussion N Congenital Anomalies N Norman Bite N Chronic Kidney Disease N Endometriosis N Liver Disease N Schizophrenia N Dialysis N Speech Delay N Chronic Obstructive Pulmonary Disease N Parkinson's Disease N Thyroid Problems N GI Problems N Developmental Delay N Anemia N Multiple Sclerosis N Immune System Disorder N Colon Polyps N Heart Attack (CA) N Diabetes Y Cardiomyopathy N Blood Transfusions N Heart Problems/Murmur N Eye Trauma N Congestive Heart Failure (CHF) N Valvular Heart Disease N Hyperlipidemia N Double Vision N Abuse/Domestic Violence N Hepatitis B N Lupus N Epilepsy/Seizures N Reflux/GERD N Aneurysm N Heart Disease N Bronchitis N Pre-Eclampsia Y Hypertension N Heart Failure N Other N Gout N High Blood Pressure Y Atrial Fibrillation N Kidney Stones N Head Trauma/Injury N Congenital Heart Disease N Spine Problems N Gastrointestinal Disease N Lung Mass N Sinusitis N Obstructive Sleep Apnea N Muscle, Joint, or Bone Problems N Autoimmune disease N Vision or Eye Problems N Arthritis N Blood Clot N Cancer N Seasonal allergies N Leg or Foot Ulcers N Raynaud's Disease N Aortic Aneurysm N Arrhythmia N Headaches N Heart Problems N Ambloypia N Ear or Hearing Problems N Hyperparathyroidism N Migraines N Artificial Joints N Kidney or Bladder Problems N NSAID Use N Encephalitis N PTSD N Ulcers N Prostate Hypertrophy N Bleeding Disorder N AIDS/HIV N Urinary Tract Infection N Back Problems N Allergies N Atrial Flutter N GERD/Reflux N Hepatitis N Autism Spectrum Disorder (ASD) N Breast Cancer N Hernia N Hypothyroidism N Breast Problem N Genitourinary Disease N Deep Vein Thrombosis N Varicose Veins N Cystic Fibrosis N Hearing Loss N Developmental Problems N Carotid Disease N Vitamin D Deficiency N ADHD N Bladder or Kidney Problems N High Cholesterol N [place] N Valvular Abnormalities N Psychiatric/Mental Health Condition N Organ Transplant N Foot Deformity N Allergies/Hayfever N Dyslipidemia N Hyponatremia N Diabetic Eye Disease N Osteoporosis/Osteopenia N Back Pain N Proteinuria N Mental Illness N Neurological Problems N Ovarian Cancer N Bedwetting N Seizures/Epilepsy N Kidney Failure N Ocular trauma N Diverticulitis N Dementia N Sleep Apnea N Mental Problems N Warfarin Management N Osteoporosis N Gynecological History Statement/Question Response Abnormal Pap Yes Flow Moderate Date of LMP 12/17/2024 On BCP's at Conception? N STIs/STDs N HPV Vaccine N Duration of Flow (days) 4 Age at Menarche 12 Current Control Method None Age at First Child 29 Frequency of Cycle (Q days) Sexually Active? Y Menses Monthly No Date of Last Pap Smear 07/22/2024 Sexual Problems? N LMP Approximate Desired Control Method Implant Obstetrics History GPAL:G 3 P 0 0 0 3 Type Value Multiple Births 0 Full Term 0 Induced 0 Spontaneous 0 Premature 0 Living 3 Ectopics 0 Total 3 Past Encounters Encounter ID Performer Location Encounter Start Date Encounter Closed Date Diagnosis/Indication Diagnosis SNOMED-CT Code Diagnosis ICD10 Code Diagnosis Note [id number] [facility] [address] [place] [phone] 05/20/2015 11:29:56 05/20/2015 14:13:12 Uses IUD (intrauterine device) contraception [id number] Wishes to have Mirena removed due to dyspareuni a and intermitte nt cramping since insertion . Will remove IUD and replace with Nexplanon when implant is available. Atypical s quamous cells of undetermined significance on cervical Papanicolaou smear 505577391 Hx. of ASCUS on pap 10/31/13 Will repeat pap at time of Mirena removal. Subcutaneo us contraceptive implant present [id number] Ordering Nexplanon for insertion to replace Mirena IUD. [id number] MD Griffin Connelly (SURGICAL DRESSING MAKER) [address] [place] [address] [phone] 07/02/2015 10:30:05 07/02/2015 11:40:21 Removal of intrauterine device [id number] Implantati on of subcutaneous contraceptive [id number] JoMD Griffin Downs (Adult Med) [address] [place] [address] [id number] 07/23/2015 10:45:49 07/23/2015 13:03:44 Diabetes mellitus 76115050 E11.9 Essential hypertension 64639925 I10 Morbid obesity 497901145 E66.01 Administra tion of influenza vaccine 32161744 Z23 [id number] MD Griffin Connelly (SURGICAL DRESSING MAKER) [address] [place] [address] [phone] 08/25/2015 13:43:25 08/25/2015 15:56:02 Furuncle 220906838 L02.92 [id number] MD Griffin Connelly (SURGICAL DRESSING MAKER) [address] [place] [address] [phone] [id number] 04/17/2016 14:28:27 04/20/2016 16:04:47 Removal of subcutaneous contraceptive done 7133309228 15411 Z98.89 [id number] [facility] [address] [place] [address] [phone] 07/17/2016 14:37:01 07/25/2016 10:01:44 Gynecologic examination 29409271 Z01.411 Hemorrhoids 52293761 K64 .9 Polycystic ovaries 84874 008 E28.2 [id number] MD Griffin Stuart (SURGICAL DR[employer]ING [employer]ER) [address] [place] [address] [id number] 10/04/2016 15:22:03 10/06/2016 15:08:24 Routine care 806768519 Z34.91 Diabetes mellitus 820806 09 E11.9 patient needs to be complete care by MFM due to high risk Polycystic ovaries 77360 008 E28.2 Essential hypertension 99578472 I10 Morbid obesity 110977737 E66.01 Deliveries by 110153387 O82 Abnormal progesterone 13 8755066 R94.7 Vitamin D deficiency 347 52277 E55.9 Asthma 337836057 J45.90 9 Gastroesop hageal reflux disease 551413244 K21.9 [id number] MD Griffin Robison (SURGICAL DRESSING MAKER) [address] [place] [address] [id number] 10/20/2016 10:30:24 10/20/2016 16:24:06 Threatened miscarriage in first trimester 23328007 O20.0 D/W PATIENT [place] REPORT FROM [place] [facility] NOT RAISING APPROPRIAT VAMSHI. Urinary tr act infectious disease 58952969 N39.0 Glycosuria 79701850 R81 D/W patient HbA1C result. Secondary to 500 glucose in urine and ketones, Patient to ER Genital he rpes simplex 14975431 A60.9 D/W PATIENT LAB WORK. sAFE SEX COUNSELING DONE. DENIES ANY SYMPTOMS TODAY. 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.001 [id number] Mango Bustamante MD [facility] (SURGICAL DRESSING MAKER) [address] [place] [address] 11/01/2016 11:56:23 11/07/2016 10:16:19 Diabetes mellitus 59813559 E11.9 patient needs to be referred to endocrinol ogist Morbid obesity 010250609 E66.01 Complete miscarriage 156 000778 O03.9 Genital he rpes simplex 10553964 A60.9 Vitamin D deficiency 347 00005 E55.9 [id number] Anthony Friend MD [facility] [address] [place] [address] 12/24/2024 14:07:30 12/24/2024 15:10:48 Type 2 diabetes mellitus without complication 046124856 E11.9 gastric bypass Aug 2021on mounjaro 12.[address] with [address] Diego, last a1c 6.4% Mixed anxi ety and depressive disorder 281163448 F41.8 PHQ 5has been out of meds for months, would like to re-start Asthma 250116319 J45.90 9 refill Gastroesop hageal reflux disease without esophagitis 969911596 K21.9 uses Prilosec 40 OTCrequest ing script for PRN Fatigue 15393282 R53.83 x4 monthsrequ esting to check vitamins Obesity 462430038 E66.9 BMI 36.0routin e labs Headache 62739366 R51.9 x1 mofalls asleep between 11 PM to 1 AM and is up at 6 AM, tosses and turnschron ically dehydrated and not sleeping wellwould like to check blood work before starting medication Chronic low back pain 27 6926874 M54.50 told she has arthritis in her hips and low backreques ting low dose to help her sleep Health Concerns Section Related Observation LastModified by Organization Detai ls LastModified Time None Recorded Concern Status LastModified by Organization Details LastModified Time None Recorded Advance Directives Directive N: Payers Insurance Date Sequence Insurance Name Policy Number Policy Sandoval Covered Member ID Sandoval Member ID Guarantor Name 12/24/2024 1 [facility] (MEDICAID HMO) [id number] Concepcion Mace [id number] Concepcion Fierro 12/24/2024 1 [employer] - DOS ON OR AFTER 21 (MEDICAID REPLACEMENT - HMO) Concepcion Fierro [id number] Concepcion Fierro Notes Date Note Type Note Provider Name and Address Organization Details Recorded Time 10/04/2016 text/html OB ProblemReport ed bypatient.Associated Symptoms:no abdominal pain; no cramping; no contractions; no bleeding; no ROM; no vaginal discharge; no vaginal/vulvar itching or irritation; no dysuria; no frequency; no urgency; no hematuria; no fever; no nausea; no emesis; no constipation; no diarrhea/loose stool; no edema; no visual changes; no headache; no dizziness 31yo previous csection with diabetes, HTN here for NOB. Her initial hcg was 217 and her progesterone was 6, so she is here to get further evaluation and management. Mango Bustamante garcia, [place] - [facility] 10/04/2016 19:22:07 10/20/2016 text/html she say she went to [place] on [place]16 - when she started bleeding. went to ER on 08/16/17. Reviewed ER records. Had an ultrasound done which showed pole but no heart beat. [facility] 360 on 10/17/16. She say she passed tissue on 10/19/16 and she brought the tissue in to clinic. sHE SAY SHE IS STILL HAVING VAGINAL MINIMAL VAGINAL BLEEDING Krupa Michel MD Attn: Accounting,[address] [place], [address], [facility] - [facility] 10/20/2016 13:05:18 11/01/2016 text/html she say she went to [place] on 08/15/16 - when she started bleeding. went to ER on 08/16/17. Reviewed ER records. Had an ultrasound done which showed pole but no heart beat. [facility] 360 on 10/17/16. She say she passed tissue on 10/19/16 and she brought the tissue in to clinic. sHE SAY SHE IS not BLEEDING Mango zelaya, [facility] 11/02/2016 19:00:28 12/24/2024 text/html Pt presents to establish care as a new patient. H/o T2DM, gastric bypass, anxiety, depression, asthma, GERD, and chronic LBP. She had gastric sleeve 08/2021. Pt is following with Endocrinology for T2DM. Requesting med refills. C/o daily headaches for the past month. Located in the back of her head and moves up. Describes as like something is pushing into my head. Mild relief with tylenol. No head trauma or injury. Admits to poor sleep and poor fluid intake. LIAT SPEARS Attn: Accounting,[address] [place], [address], [facility] 12/24/2024 17:09:31 OBGyn Episode Ob Episode Information Episode Created Date Number of Fetuses Patient Bloodtype Patient rh Status Prepregnancy Weight lbs Domestic Partner Domestic Partner Phone Father Name Pet House Sitter Status 05/20/20 15 1 CLOSED Fetus Data First Name Last Name Admitted to NICU Weight (g) Sex Living Outcome Pediatric Complications Fetus ID Race Codes Race Delivery Type 3460.90 696 M Full Term [id number] Timo Calculation Initial Timo Date Initial Exam [...] Complications Tubal Sterilization Discharge Date Comments 5 [facility] 37 false Christai n Josh Fierro, baby born [place] Discharge Information Feeding Method Contraceptive Method Maternal HG B and HCT Levels Ob Episode Information Episode Created Date Number of Fetuses Patient Bloodtype Patient rh Status Prepregnancy Weight lbs Domestic Partner Domestic Partner Phone Father Name Pet House Sitter Status 11/01/19 17 1 DELETED Timo Calculation Initial Timo Date Initial Exam [...] Post Complications Tubal Sterilization Discharge Date Comments 6 8 Discharge Information Feeding Method Contraceptive Method Maternal HG B and HCT Levels Ob Episode Information Episode Created Date Number of Fetuses Patient Bloodtype Patient rh Status Prepregnancy Weight lbs Domestic Partner Domestic Partner Phone Father Name Pet House Sitter Status 10/04/20 16 1 A Positive 255 Ross Fierro CLOSED Fetus Data First Name Last Name Admitted to NICU Weight (g) Sex Living Outcome Pediatric Complications Fetus ID Race Codes Race Delivery Type , Spontane ous [id number] Timo Calculation Initial Timo Date Initial Exam Date Initial Exam Provider Initial Ultrasound Date Last Menstrual Period Date Ultra Sound Weeks Gestation 06/03/2017 10/04/2016 [email or web address] 08/27/2016 0 Eighteen To Twenty Week Timo Update Ultra Sound Date Fundal Height At Umbil Quickening Date Ultra Sound Latest Weeks Gestation Final Timo Confirmed By Final Timo Confirmed Date Final Timo Date Ultra Sound Latest Days Gestation 0 06/03/20 17 0 Pre-faraz Flowsheet Flowsheet Date 10/04/2016 Burns Score Blood Edema Fundus Height Fundus Units Glucose Ketones Leukocytes Nitrite Labor Signs Protein Cervic Dilation Cervic Effacement Cervic Station Type Weight in lbs Pre/Post Dialysis Refused 255.779557811599 BP Diastolic BP Location Tested BP Systolic BP Type Fetus Heart Rate Present Fetus Movement Comments Flowsheet Date 10/20/2016 Burns Score Blood Edema Fundus Height Fundus Units Glucose Ketones Leukocytes Nitrite Labor Signs Protein Cervic Dilation Cervic Effacement Cervic Station Type Weight in lbs Pre/Post Dialysis Refused 257.564926945651 BP Diastolic BP Location Tested BP Systolic BP Type 82 122 sitting Fetus Heart Rate Present Fetus Movement Comments Flowsheet Date 11/01/2016 Burns Score Blood Edema Fundus Height Fundus Units Glucose Ketones Leukocytes Nitrite Labor Signs Protein Cervic Dilation Cervic Effacement Cervic Station Type Weight in lbs Pre/Post Dialysis Refused 253.803485307503 BP Diastolic BP Location Tested BP Systolic BP Type Fetus Heart Rate Present Fetus Movement Comments Menstrual History Last Menstrual Date Menses Monthly On Bcp Conception Prior Menses Frequency Hcg Plus Date Menarche Onset Age 1108/27/2016 true 9 Delivery Information Delivery Date Delivery Type Labor Anesthesia Weeks Gestation Incision Type Labor Labor Length Hrs Delivered By Post Complications Tubal Sterilization Discharge Date Comments 6 7.4 MisCarry SAB Discharge Information Feeding Method Contraceptive Method Maternal HG B and HCT Levels
--- OUTSIDE RECORDS SUMMARY | 2025-05-05 23:09 | XMS_ITS | Referral Summary ---
Author Organization [address] [address] Care Team Providers Care Motion Study Analyst Name Role Phone Unknown, Notinfile Primary Care Provider Unavail able Encounters Date Type Department Care Team Description 03/11/2025 5:30 PM CDT Office Visit [facility] at [address] [phone] Mila Fraser NP Non-recurrent acute suppurative otitis media of left ear without spontaneous rupture of tympanic membrane (Primary Dx) 03/07/2025 Results Follow-Up [facility] at [address] [phone] Tamanna Coleman PA Vaginitis panel Vaginal 03/07/2025 5:46 PM CDT - 03/07/2025 11:59 PM CDT Hospital Encounter [place] [id number] Acute vaginitis Discharge Disposition: Discharge to home or self care 03/07/2025 2:00 PM CDT Office Visit [facility] at [address] [phone] Tamanna Coleman PA Acute vaginitis (Primary Dx); Nasopharyngitis 02/06/2025 Results Follow-Up [facility] at [address] [phone] Mila Fraser NP Vaginitis panel Vaginal, Urine culture Urine, clean voided 02/05/2025 7:11 PM CDT - 02/05/2025 11:59 PM CDT Hospital Encounter [place] [id number] [place] [address] Vaginal itching Discharge Disposition: Discharge to home or self care 02/05/2025 7:00 PM CDT Office Visit [facility] at [address] [phone] Mila Fraser NP Vaginal itching (Primary Dx); Dizziness; Changes in vision; Acute intractable headache, unspecified headache type from Last 3 Months Allergies Active Allergy Reactions Criticality Noted Date [...] total protein: 192mg, volume: 1600cc echocardiogram at [facility]: EKG: normal sinus rhythm,11/2021 Echo [...] Hypertension 10/06/2016 Supervision of high-risk of young jose e bj 10/06/2016 Overview (01/04/2024): PNL: A+ Ab: Uncertain [...] PP for severe range BP, not intrapartum Immunizations Immunization Administration Dates Next Due Influenza, Quadrivalent, Spl it, Preservative Free, Intramuscular 07/01/2018 MMR 07/01/2018,11/14/2014 Tdap 07/01/2018 Social History Tobacco Use Types Packs/Day Years Used Date Smoking Tobacco: Former Tobacco Cessation:Counseling Given: Not Answered Comments Unknown Sex and Gender Information Value Date Recorded Sex Assigned at Not on file Legal Sex Female 11:01 AM RECONDITIONING ASSOCIATE Gender Identity Not on file Sexual Orientation Not on file Last Filed Vital Signs Vital Sign Reading [...] 157.5 cm (5' 2) 12/10/2023 4:01 PM RECONDITIONING ASSOCIATE Body Mass Index 37.86 12/10/2023 4:01 PM RECONDITIONING ASSOCIATE Plan of Treatment Not on file Procedures Procedure Name Priority Date/Time Associated Diagnosis [...] Campus Influenza A Ag, POC Negative Negative [facility] Influenza B Ag, POC Negative Negative [facility] COVID-19 Ag POC Presumptive Negative Presumptive Negative, Invalid [facility] Nasal 03/07/2025 2:49 PM CDT Tamanna JOSUE POINT OF CARE TEST ORDER ELENO Final Result Performing Organization Address City/State/[facility] Co de Phone Number [facility] [address] [place] [address] * POCT rapid strep A (03/07/2025 2:41 PM CDT) [facility] Rapid Strep A, POC Negative Negative Swab 03/07/2025 2:41 PM CDT Tamanna JOSUE POINT OF CARE TEST ORDER ELENO Final Result * (ABNORMAL) Vaginitis panel Vaginal (03/07/2025 2:21 PM CDT) [facility] Bacterial Vaginosis Not Detected Not Detected Comment:A negative result do es not preclude a possible infection. Results should be considered in conjunction with clinical presentation to determine the disease status. Mana group Detected(A) Not Detected [facility] Comment:Mana species can be present as commensal organisms in women; results should be considered in conjunction with clinical presentation to determine the disease status. Mana glabrata/ krusei Not Detected Not Detected [facility] Trichomonas DNA Not Detected Not Detected [facility] Vaginal 03/07/2025 2:21 PM CDT 03/07/2025 6:42 PM CDT Narrative [facility] - 03/07/2025 8:08 PM CDT The MyVerse Xpert Xpress MVP test detects DNA targets [...] this test have been verified by the [facility]. Tamanna JOSUE LAB MICROBIOLOGY - [facility] AL ORDERABLES Final Result [facility] [id number] Department [place] [address] [place] * (ABNORMAL) POCT urinalysis dipstick (02/05/2025 7:16 PM CDT) Color, Urine, POC Rosi Clarity, ur, POC Cloudy(A) Clear Glucose, ur, POC 100.(A) Negative MG/DL Bilirubin, ur, POC Small Negative, Small, Moderate, Large Ketones, ur, POC 15.(A) Negative Specific [place], POC 1.030 1.003 - 1.030 Blood, ur, POC Negative Negative pH, ur, POC 5.5 5.0 - 8.0 Protein, ur, POC 30.(A) Negative Urobilinogen, urine, POC 1.0 0.2 - 1.0 mg/dL Nitrite, ur, POC Positive(A) Negative Leukocytes, ur, POC Negative Negative Lot Number [id number] Urine 02/05/2025 7:16 PM CDT Mila Fraser NP POINT OF CARE TEST ORDERABLES Final Result * (ABNORMAL) Vaginitis panel Vaginal (02/05/2025 7:11 PM CDT) Bacterial Vaginosis Not Detected Not Detected Comment:A negative result do es not preclude a possible infection. Results should be considered in conjunction with clinical presentation to determine the disease status. Mana group Detected(A) Not Detected [facility] Comment:Mana species can be present as commensal organisms in women; results should be considered in conjunction with clinical presentation to determine the disease status. Mana glabrata/ krusei Not Detected Not Detected [facility] Trichomonas DNA Not Detected Not Detected [facility] Vaginal 02/05/2025 7:11 PM CDT 02/06/2025 1:28 AM CDT Narrative [facility] - 02/06/2025 2:39 AM CDT The MyVerse Xpert Xpress MVP test detects DNA targets [...] this test have been verified by the [facility]. Mila Fraser NP LAB MICROBIOLOGY - GENERAL ORD ERABLES Final Result [facility] [id number] Department [place] [address] * (ABNORMAL) Urine culture Urine, clean voided (02/05/2025 7:11 PM CDT) Report Final Report: Greater than or equal to 100,000 colonies/mL of Escherichia coli Plus growth of clinically insignificant bacterial bertram. (.) Comment:Testing performed by : [facility], [address] [facility] [place]., [address] Organism ESCHERICHIA COLI [facility] Organism PLUS GROWTH OF CLINICALLY INSIGNIFICANT BERTRAM. [facility] Urine, clean voided 02/05/2025 7:11 PM CDT 02/06/2025 5:03 AM CDT Narrative [facility] - 02/08/2025 10:28 AM CDT Testing performed by [facility] ([phone]) Organism Antibiotic Method Susceptibility Escherichia coli Ampicillin [...] INTERPRETATION Susceptible Escherichia coli Cefdinir INTERPRETATION Susceptible us Mila Fraser NP LAB MICROBIOLOGY - GENERAL ORD ERABLES Final Result [facility] [id number] [address] Department [place] [address] from Last 3 Months Insurance Care Teams Motion Study Analyst Relationship Specialty Start Date End Date Unknown, Notinfile PCP - General 12/09/23
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
[2025-05-06] MEDS: HYDROmorphone HCL INJ (*CRX) 2 MG/ML VIAL 0.5 MG IV PUSH (01:04)
[2025-05-06 01:22] VITALS: BP 151/87; PULSE 92; RESP 18; O2SAT 100
[2025-05-06 02:04] VITALS: BP 139/75; PULSE 77; RESP 18; O2SAT 99
== END 2025-05-06 02:05 | disposition home or self-care (01) ==
PROVIDERS: Emergency Provider Student in an Organized Health Care Education/Training Program
DX: S39.012A Strain of muscle, fascia and tendon of lower back, initial encounter (principal); S16.1XXA Strain of muscle, fascia and tendon at neck level, initial encounter; E11.9 Type 2 diabetes mellitus without complications; E66.01 Morbid (severe) obesity due to excess calories; Z68.37 Body mass index [BMI] 37.0-37.9, adult; E78.5 Hyperlipidemia, unspecified; E55.9 Vitamin D deficiency, unspecified; J45.909 Unspecified asthma, uncomplicated; F32.A Depression, unspecified; F41.9 Anxiety disorder, unspecified; Z98.84 Bariatric surgery status; Z87.891 Personal history of nicotine dependence; Z79.899 Other long term (current) drug therapy; Z79.85 Long-term (current) use of injectable non-insulin antidiabetic drugs; V49.40XA Driver injured in collision with unspecified motor vehicles in traffic accident, initial encounter
CPT/HCPCS: 70450; 72125; 72131; 96374; 99284; A9270; J1171